=== PATIENT | female | born 1975 | race Caucasian/White ===

== ENCOUNTER 2019-11-16 15:10 | Outpatient (REF) | payer OTHER, SELFPAY ==
--- NOTE | 2019-11-16 | XR_ITS ---
EXAMINATION: XR LUMBOSACRAL SPINE WITH OBLIQUES CLINICAL INFORMATION: Low back pain. COMPARISON: 11/29/2016 lumbar spine radiographs. TECHNIQUE: AP, both oblique, and lateral views of the lumbar spine. Lateral view of the lumbosacral junction. FINDINGS: The vertebral bodies and posterior elements are normal. The disc spaces are preserved and the vertebral alignment is normal. The paraspinal soft tissues are normal. IMPRESSION: Unremarkable lumbar spine.
== END 2019-11-16 15:11 | disposition home or self-care (01) ==
LOC: HO.XRAY 15:10
PROVIDERS: PCP Internal Medicine; Visit Provider Internal Medicine
DX: M54.5 Low back pain (principal)
CPT/HCPCS: 72110

== ENCOUNTER 2020-05-23 16:47 | Emergency (ER) | payer OTHER, SELFPAY ==
--- NOTE | ~2020-05-23 | CT_ITS ---
EXAMINATION: CT ANGIOGRAM OF THE CHEST WITH AND WITHOUT CONTRAST (CT PULMONARY ANGIOGRAM FOR PE) CLINICAL INFORMATION: Reason for Exam sob, tachycardia, lateral chest pain on inspiration COMPARISON: None TECHNIQUE: Prior to contrast administration, noncontrast localization images were obtained. Subsequently, multidetector volumetric imaging was performed from the thoracic inlet to below the diaphragms following the administration of 80 mL Omnipaque 350 intravenous contrast. No contrast reaction reported Sagittal, coronal, and MIP oblique sagittal reformatted images were obtained on the CT workstation, uploaded to PACS, and reviewed. This CT examination was performed using dose optimization techniques as appropriate, variously including the following: *Automated exposure control *Adjustment of mA and/or kV according to patient size (this includes techniques or standardized protocols for targeted exams where dose is matched to indication/reason for exam; i.e. extremities or head) *Use of iterative reconstruction technique Total exam dose-length product 271 mGy-cm FINDINGS: QUALITY OF STUDY/CONTRAST BOLUS: Satisfactory. PULMONARY ARTERIES: No central or segmental pulmonary emboli. THORACIC AORTA: No aneurysm or dissection. LUNG: The lungs are well-expanded with patchy opacity right upper lobe anterior segment question developing infiltrate. Rest of lungs are clear is a 2 mm nodule right upper lobe axial image 17/6, 3 mm nodule left upper lobe adjacent to the major fissure axial image 15/6, 4 mm nodule in the lingula axial image 31/6, 2 mm subpleural nodule right middle lobe axial image 33/6, 4 mm nodule left lower lobe axial image 34/6, 3 mm nodule in the lingula axial image 35/6, 2 mm subpleural-based nodules left lower lobe axial image 36/6. No large mass or acute consolidation seen. PLEURA: No pleural effusion or pneumothorax. MEDIASTINUM: Normal heart size. No pericardial effusion. No hilar or mediastinal lymphadenopathy. No evidence of septal bowing or right heart strain. CHEST WALL/AXILLA: No axillary or internal mammary lymphadenopathy. OSSEOUS STRUCTURES: No acute or suspicious osseous abnormality. UPPER ABDOMEN: Visualized liver, spleen, pancreas and bilateral adrenal glands are unremarkable. No reflux of contrast into the hepatic veins to suggest elevated right heart pressures. CT/CT angio chest PE protocol IMPRESSION: No evidence of PE. No evidence of aortic aneurysm or dissection. Multiple small 2-4 mm range pulmonary nodules seen bilaterally, question inflammatory or infectious etiology. No acute consolidation seen. There is a small patchy opacity right upper lobe, question developing infiltrate. Consider follow up chest x-ray in 7-10 days. VTE: negative
[2020-05-23 17:11] VITALS: BP 123/67; PULSE 93; RESP 22; TEMP 37.2; O2SAT 100; BMI 25.8
--- NOTE | 2020-05-23 17:28 | ECG_ITS ---
Test Reason : SOB Blood Pressure : / mmHG Vent. Rate : 091 BPM Atrial Rate : 091 BPM P-R Int : 122 ms QRS Dur : 070 ms QT Int : 344 ms P-R-T Axes : 027 -01 024 degrees QTc Int : 423 ms Normal sinus rhythm Normal ECG No previous ECGs available Referred By: Nevin Vieira Electronically Signed By:LESLEE MARIN
--- NOTE | 2020-05-23 17:30 | ED.SOB ---
HPI - SOB/Dyspnea General Chief Complaint: Dyspnea Stated Complaint: sob chills Time Seen by Provider: 05/23/20 17:21 Source: patient Mode of arrival: ambulatory Limitations: no limitations History of Present Illness HPI Narrative: 44-year-old female with no significant past medical history presents with 2 weeks of upper respiratory symptoms, however over the past several days she has developed increasing shortness of breath, fevers, chills, and was referred to the emergency department by [facility]. She describes lateral chest pain on inspiration, shortness of breath, shortness breath on exertion, fevers, chills, cough, and weakness. MD elicited complaint: shortness of breath Onset (ago): week(s) (2) Context: recent illness Timing: constant Severity: moderate Exacerbating factors: exertion, coughing and deep breaths Relieving factors: nothing Associated symptoms: chest pain, pain with inspiration, fever, cough, wheezing and chest congestion Treatment prior to arrival: none Related Data Previous Rx's Medication Instructions Recorded albuterol sulfate 2 puff INHALATION Q4-6H PRN #8.5 g 05/23/20 azithromycin See Rx Instructions .ROUTE 05/23/20 .COMPLEX #6 tab benzonatate [Tessalon Perles] 100 mg PO TID PRN #60 cap 05/23/20 cefuroxime axetil 500 mg PO Q12H 7 Days #14 tab 05/23/20 dexamethasone 6 mg PO DAILY 5 Days #5 tab 05/23/20 Allergies Allergy/AdvReac Type Severity Reaction Status Date / Time No Known Allergies Allergy Unverified 10/29/19 17:08 [No Known Allergies*] Review of Systems Review of Systems: Constitutional: positive Fever, positive Chills, positive fatigue, positive Malaise ENT/Mouth: No sore throat, no runny nose Eyes: No Discharge Cardiovascular: Positive Chest Pain, positive SOB Respiratory: Positive Cough, No Sputum, positive Wheezing, No Smoke Exposure, positive Dyspnea Gastrointestinal: No Nausea, No Vomiting, No Diarrhea Genitourinary: no irregular bleeding, No Dysuria, No Urinary Frequency, No Hematuria, No Urinary Incontinence, No Urgency, No Flank Pain, Musculoskeletal: positive Myalgia Skin: No rash Neuro: Positive Headache Yes all other systems are reviewed and are negative PMFSH Past Medical History Attestation statement: The following information was validated with the patient. Source: old records reviewed Medical History (Updated 05/23/20 @ 21:36 by Nevin Vieira NP) Cholecystectomy planned No known health problems Social History Social History Advance Directives: No Advance Directives Information Provided: No Physical Exam Vital Signs: Vital Signs: Last Vital Signs Temp 98.4 F 05/23/20 22:37 Pulse 107 H 05/23/20 22:37 Resp 18 05/23/20 22:37 BP 123/65 05/23/20 22:37 Pulse Ox 98 05/23/20 22:37 Body Mass Index 25.8 Appearance: Alert. Oriented X3. Moderate distress. Eyes: Pupils equal, round and reactive to light. EOMI ENT: Pharynx normal. Dry mucous membranes Neck: Normal inspection. Neck supple. Trachea midline CVS: Tachycardic heart rate and rhythm. Apical pulse equal to extremities Respiratory: Tachypneic, mild respiratory distress. Lung sounds extra mario wheezing Abdomen: Soft and nontender. Skin: Skin warm and dry. Normal skin color. Normal skin turgor. Extremities: No lower extremity edema. Moves all extremities against resistance, get well balanced with coordinated Neuro: No motor deficit. No sensory deficit. Cranial nerves 2-12 intact Course Course Course Narrative: 44-year-old female presents with upper respiratory symptoms for approximately 2 weeks, over the past couple a days shortness breath has increased, now has pain on inspiration to the lateral chest [place], was referred to the emergency department by [facility]. Upon my examination, patient's respiratory rate is 35, expiratory wheezing noted throughout all lobes, patient is maintaining O2 sats 100% on room air however based on her presentation we will order updraft, steroids, and antibiotics. 5:30 p.m., patient's respiration rate is in the 30s, has pain on inspiration, will order PE study 8:00 p.m. PE study negative for embolus, does show findings consistent with COVID pneumonia. COVID test pending. RN updated. 9:10 p.m. COVID results are positive. Will discharge patient home with supportive measures. Patient verbalized understanding of and agrees to plan of care discharge home. MDM - SOB/Dyspnea Differential Diagnosis Differential diagnosis: Likely acute exacerbation of chronic obstructive airways disease, pneumonia, pulmonary embolism and anemia Medical Records Attestation: I reviewed the patient's medical records. Lab Data Attestation: I reviewed the patient's lab results. Result diagrams: 05/23/20 18:17 05/23/20 18:17 Labs: Lab Results 05/23/20 05/23/20 05/23/20 Range/Units 18:17 18:17 18:17 WBC 3.3 L (4.8-10.8) X10*3/uL RBC 4.79 (4.20-5.50) X10*6/uL Hgb 13.6 (12.0-16.0) g/dl Hct 40.4 (37-47) % MCV 84.3 (80-98) fL MCH 28.4 (27.0-33.0) pg MCHC 33.7 (31.0-35.0) g/dl RDW 12.3 (11.0-16.0) % Plt Count 275 (160-400) X10*3/uL MPV 9.2 L (9.4-12.3) fL Immature Gran % (Auto) 0.3 (0.0-0.4) % Neut % (Auto) 50.3 (45-73) % Lymph % (Auto) 35.8 (20-40) % [place] % (Auto) 13.3 H (2-11) % Eos % (Auto) 0.3 (0-4) % Baso % (Auto) 0.0 (0-2) % Lymph # (Auto) 1.2 (1.2-4.9) X10*3/uL [place] # (Auto) 0.4 (0.1-1.2) X10*3/uL Eos # (Auto) 0.0 (0.0-0.4) X10*3/uL Baso # (Auto) 0.0 (0.0-0.2) X10*3/uL Abs Immat Gran (auto) 0.01 (0.00-0.03) X10*3/uL Absolute Neuts (auto) 1.7 L (2.0-8.3) X10*3/uL Absolute Nucleated RBC 0.000 (0.0-0.012) X10*3/uL Nucleated RBC % (auto) 0.0 (0.0-0.2) /100WBC PT 11.8 (10.8-13.0) SEC INR 1.0 (0.9-1.1) APTT 31.7 (24.1-38.0) SEC Sodium 137 (135-145) mmol/L Potassium 3.5 (3.3-5.1) mmol/L Chloride 103 (96-108) mmol/L Carbon Dioxide 23 (22-29) mmol/L Anion Gap 15 (12-20) BUN 9 (9-16) mg/dL Creatinine 0.89 (0.5-1.4) mg/dL Estim Creat Clear Calc 81.3 Estimated GFR > 60 Random Glucose 94 (60-115) mg/dL Calcium 9.2 (8.4-10.2) mg/dL Magnesium 2.1 (1.6-2.6) mg/dL Ferritin (10-250) ng/mL Total Bilirubin 0.5 (0.0-1.0) mg/dL Direct Bilirubin 0.2 (0.0-0.5) mg/dL AST 35 H (5-31) U/L ALT 35 H (0-31) U/L Alkaline Phosphatase 71 (39-117) U/L Lactate Dehydrogenase (122-220) U/L Total Creatine Kinase (26-140) U/L Troponin I High Sens (<3.5-17.0) ng/L Total Protein 7.9 (6.5-8.0) g/dL Albumin 4.4 (3.5-5.0) g/dL Lipase 11 (8-78) U/L Procalcitonin ng/mL Coronavirus (PCR) (Negative) Influenza Type A (PCR) (Negative) Influenza Type B (PCR) (Negative) RSV RNA Qual (PCR) (Negative) 05/23/20 05/23/20 05/23/20 Range/Units 18:17 18:17 18:17 WBC (4.8-10.8) X10*3/uL RBC (4.20-5.50) X10*6/uL Hgb (12.0-16.0) g/dl Hct (37-47) % MCV (80-98) fL MCH (27.0-33.0) pg MCHC (31.0-35.0) g/dl RDW (11.0-16.0) % Plt Count (160-400) X10*3/uL MPV (9.4-12.3) fL Immature Gran % (Auto) (0.0-0.4) % Neut % (Auto) (45-73) % Lymph % (Auto) (20-40) % [place] % (Auto) (2-11) % Eos % (Auto) (0-4) % Baso % (Auto) (0-2) % Lymph # (Auto) (1.2-4.9) X10*3/uL [place] # (Auto) (0.1-1.2) X10*3/uL Eos # (Auto) (0.0-0.4) X10*3/uL Baso # (Auto) (0.0-0.2) X10*3/uL Abs Immat Gran (auto) (0.00-0.03) X10*3/uL Absolute Neuts (auto) (2.0-8.3) X10*3/uL Absolute Nucleated RBC (0.0-0.012) X10*3/uL Nucleated RBC % (auto) (0.0-0.2) /100WBC PT (10.8-13.0) SEC INR (0.9-1.1) APTT (24.1-38.0) SEC Sodium (135-145) mmol/L Potassium (3.3-5.1) mmol/L Chloride (96-108) mmol/L Carbon Dioxide (22-29) mmol/L Anion Gap (12-20) BUN (9-16) mg/dL Creatinine (0.5-1.4) mg/dL Estim Creat Clear Calc Estimated GFR Random Glucose (60-115) mg/dL Calcium (8.4-10.2) mg/dL Magnesium (1.6-2.6) mg/dL Ferritin 34 (10-250) ng/mL Total Bilirubin (0.0-1.0) mg/dL Direct Bilirubin (0.0-0.5) mg/dL AST (5-31) U/L ALT (0-31) U/L Alkaline Phosphatase (39-117) U/L Lactate Dehydrogenase 136 (122-220) U/L Total Creatine Kinase 35 (26-140) U/L Troponin I High Sens < 3.5 (<3.5-17.0) ng/L Total Protein (6.5-8.0) g/dL Albumin (3.5-5.0) g/dL Lipase (8-78) U/L Procalcitonin 0.05 ng/mL Coronavirus (PCR) (Negative) Influenza Type A (PCR) (Negative) Influenza Type B (PCR) (Negative) RSV RNA Qual (PCR) (Negative) 05/23/20 Range/Units 20:10 WBC (4.8-10.8) X10*3/uL RBC (4.20-5.50) X10*6/uL Hgb (12.0-16.0) g/dl Hct (37-47) % MCV (80-98) fL MCH (27.0-33.0) pg MCHC (31.0-35.0) g/dl RDW (11.0-16.0) % Plt Count (160-400) X10*3/uL MPV (9.4-12.3) fL Immature Gran % (Auto) (0.0-0.4) % Neut % (Auto) (45-73) % Lymph % (Auto) (20-40) % [place] % (Auto) (2-11) % Eos % (Auto) (0-4) % Baso % (Auto) (0-2) % Lymph # (Auto) (1.2-4.9) X10*3/uL [place] # (Auto) (0.1-1.2) X10*3/uL Eos # (Auto) (0.0-0.4) X10*3/uL Baso # (Auto) (0.0-0.2) X10*3/uL Abs Immat Gran (auto) (0.00-0.03) X10*3/uL Absolute Neuts (auto) (2.0-8.3) X10*3/uL Absolute Nucleated RBC (0.0-0.012) X10*3/uL Nucleated RBC % (auto) (0.0-0.2) /100WBC PT (10.8-13.0) SEC INR (0.9-1.1) APTT (24.1-38.0) SEC Sodium (135-145) mmol/L Potassium (3.3-5.1) mmol/L Chloride (96-108) mmol/L Carbon Dioxide (22-29) mmol/L Anion Gap (12-20) BUN (9-16) mg/dL Creatinine (0.5-1.4) mg/dL Estim Creat Clear Calc Estimated GFR Random Glucose (60-115) mg/dL Calcium (8.4-10.2) mg/dL Magnesium (1.6-2.6) mg/dL Ferritin (10-250) ng/mL Total Bilirubin (0.0-1.0) mg/dL Direct Bilirubin (0.0-0.5) mg/dL AST (5-31) U/L ALT (0-31) U/L Alkaline Phosphatase (39-117) U/L Lactate Dehydrogenase (122-220) U/L Total Creatine Kinase (26-140) U/L Troponin I High Sens (<3.5-17.0) ng/L Total Protein (6.5-8.0) g/dL Albumin (3.5-5.0) g/dL Lipase (8-78) U/L Procalcitonin ng/mL Coronavirus (PCR) POSITIVE A (Negative) Influenza Type A (PCR) NEGATIVE (Negative) Influenza Type B (PCR) NEGATIVE (Negative) RSV RNA Qual (PCR) NEGATIVE (Negative) Imaging Data CT PE study: Attestation: I personally reviewed and interpreted this imaging study as follows: Radiologist's impression: EXAMINATION: CT ANGIOGRAM OF THE CHEST WITH AND WITHOUT CONTRAST (CT PULMONARY ANGIOGRAM FOR PE) CLINICAL INFORMATION: Reason for Exam sob, tachycardia, lateral chest pain on inspiration COMPARISON: None TECHNIQUE: Prior to contrast administration, noncontrast localization images were obtained. Subsequently, multidetector volumetric imaging was performed from the thoracic inlet to below the diaphragms following the administration of 80 mL Omnipaque 350 intravenous contrast. No contrast reaction reported Sagittal, coronal, and MIP oblique sagittal reformatted images were obtained on the CT workstation, uploaded to PACS, and reviewed. This CT examination was performed using dose optimization techniques as appropriate, variously including the following: *Automated exposure control *Adjustment of mA and/or kV according to patient size (this includes techniques or standardized protocols for targeted exams where dose is matched to indication/reason for exam; i.e. extremities or head) *Use of iterative reconstruction technique Total exam dose-length product 271 mGy-cm FINDINGS: QUALITY OF STUDY/CONTRAST BOLUS: Satisfactory. PULMONARY ARTERIES: No central or segmental pulmonary emboli. THORACIC AORTA: No aneurysm or dissection. LUNG: The lungs are well-expanded with patchy opacity right upper lobe anterior segment question developing infiltrate. Rest of lungs are clear is a 2 mm nodule right upper lobe axial image 17/6, 3 mm nodule left upper lobe adjacent to the major fissure axial image 15/6, 4 mm nodule in the lingula axial image 31/6, 2 mm subpleural nodule right middle lobe axial image 33/6, 4 mm nodule left lower lobe axial image 34/6, 3 mm nodule in the lingula axial image 35/6, 2 mm subpleural-based nodules left lower lobe axial image 36/6. No large mass or acute consolidation seen. PLEURA: No pleural effusion or pneumothorax. MEDIASTINUM: Normal heart size. No pericardial effusion. No hilar or mediastinal lymphadenopathy. No evidence of septal bowing or right heart strain. CHEST WALL/AXILLA: No axillary or internal mammary lymphadenopathy. OSSEOUS STRUCTURES: No acute or suspicious osseous abnormality. UPPER ABDOMEN: Visualized liver, spleen, pancreas and bilateral adrenal glands are unremarkable. No reflux of contrast into the hepatic veins to suggest elevated right heart pressures. CT/CT angio chest PE protocol IMPRESSION: No evidence of PE. No evidence of aortic aneurysm or dissection. Multiple small 2-4 mm range pulmonary nodules seen bilaterally, question inflammatory or infectious etiology. No acute consolidation seen. There is a small patchy opacity right upper lobe, question developing infiltrate. Consider follow up chest x-ray in 7-10 days. VTE: negative ECG Data Attestation: I personally reviewed and interpreted this ECG as follows: ECG interpretation date: 05/23/20 ECG interpretation time: 18:27 Interpretation: Vent. rate 91 BPM NE interval 122 ms QRS duration 70 ms QT/QTc 344/423 ms P-R-T axes 27 -1 24 Normal sinus rhythm Normal ECG No previous ECGs available Scores [place] PE Clinical symptoms of DVT: 3 Heart rate > 100 p/min: 1.5 Score: 4.5 2-tier Risk: likely risk (17-53%) Discharge Plan Discharge Clinical Impression: COVID-19 Patient Disposition: Home, Self-Care Instructions: COVID-19 (Coronavirus Disease 2019) (ED) Additional Instructions: You were evaluated for symptoms consistent with COVID-19 Please maintain social isolation per State and Federal guidelines. Is your responsibility to maintain these guidelines. You are positive for COVID-19. Thank you for choosing this emergency department for evaluation. Please follow-up with primary care physician as needed. Return to the emergency department for any new, concerning, or worsening symptoms. Prescriptions: New azithromycin 500 mg tablet See Rx Instructions .ROUTE .COMPLEX Qty: 6 RF: 0 cefuroxime axetil 500 mg tablet 500 mg PO Q12H 7 Days Qty: 14 RF: 0 dexamethasone 6 mg tablet 6 mg PO DAILY 5 Days Qty: 5 RF: 0 albuterol sulfate 90 mcg/actuation HFA aerosol inhaler 2 puff inhalation Q4-6H PRN (Reason: shortness of breath or wheezing) Qty: 8.5 RF: 0 benzonatate [Tessalon Perles] 100 mg capsule 100 mg PO TID PRN (Reason: cough) Qty: 60 RF: 0 Stand Alone Forms: Work/School Release Interventions: ED Discharge Assessment Last Done: 05/23/20 22:39 Discharge Date/Time: 05/23/20 22:40
[2020-05-23 18:22] LABS: MANUAL DIFF FLAG NO
[2020-05-23 18:23] LABS: Eosinophils Percent Auto 0.3 % (0-4); Hematocrit 40.4 % (37-47); Hemoglobin 13.6 g/dl (12.0-16.0); Imm Gran Abs Auto 0.01 X10*3/uL (0.00-0.03); Imm Gran Pct Auto 0.3 % (0.0-0.4); Lymphocytes Absolute Auto 1.2 X10*3/uL (1.2-4.9); Lymphocytes Percent Auto 35.8 % (20-40); Mean Corpuscular HGB Conc 33.7 g/dl (31.0-35.0); Mean Corpuscular Hemoglobin 28.4 pg (27.0-33.0); Mean Corpuscular Volume 84.3 fL (80-98); Mean Platelet Volume 9.2 fL (9.4-12.3); Monocytes Absolute Auto 0.4 X10*3/uL (0.1-1.2); Monocytes Percent Auto 13.3 % (2-11); Neutrophils Absolute Auto 1.7 X10*3/uL (2.0-8.3); Neutrophils Percent Auto 50.3 % (45-73); Platelet Count 275 X10*3/uL (160-400); Red Blood Count 4.79 X10*6/uL (4.20-5.50); Red Cell Distribution Width 12.3 % (11.0-16.0); White Blood Count 3.3 X10*3/uL (4.8-10.8)
[2020-05-23 18:33] LABS: Prothrombin Time 11.8 SEC (10.8-13.0)
[2020-05-23 18:36] LABS: Partial Thromboplastin Time 31.7 SEC (24.1-38.0)
[2020-05-23] MEDS: Albuterol Sulfate 90 MCG 8 GM INHALER 2 PUFF INHALE (18:43)
[2020-05-23] MEDS: dexAMETHasone sod phosphate 4 MG/ML VIAL 6 MG IVPUSH (18:43)
[2020-05-23 18:49] LABS: Alanine Aminotransferase 35 U/L (0-31); Albumin Level 4.4 g/dL (3.5-5.0); Alkaline Phosphatase 71 U/L (39-117); Anion Gap 15 (12-20); Aspartate Amino Transferase 35 U/L (5-31); Bilirubin Direct 0.2 mg/dL (0.0-0.5); Bilirubin Total 0.5 mg/dL (0.0-1.0); Blood Urea Nitrogen 9 mg/dL (9-16); Calcium 9.2 mg/dL (8.4-10.2); Carbon Dioxide 23 mmol/L (22-29); Chloride 103 mmol/L (96-108); Creatinine Clr Calc Pharmacy 81.3; Estimated Glomerular Filt Rate > 60; Glucose Random 94 mg/dL (60-115); Lipase 11 U/L (8-78); Magnesium 2.1 mg/dL (1.6-2.6); Potassium 3.5 mmol/L (3.3-5.1); Sodium 137 mmol/L (135-145); Total Protein 7.9 g/dL (6.5-8.0)
[2020-05-23 18:54] LABS: Troponin-I High Sensitivity < 3.5 ng/L (<3.5-17.0)
--- NOTE | 2020-05-23 18:59 | PC.NURSE ---
pt taken to ct at this time.
[2020-05-23 19:07] LABS: Procalcitonin 0.05 ng/mL
[2020-05-23 19:08] LABS: Ferritin 34 ng/mL (10-250)
[2020-05-23 19:12] LABS: Lactate Dehydrogenase 136 U/L (122-220)
[2020-05-23] MEDS: iohexoL 350 MG/ML 100 ML INFUS..BTL IV (19:35)
[2020-05-23 20:00] VITALS: BP 131/63; PULSE 105; RESP 20; TEMP 37.8; O2SAT 100
[2020-05-23 20:58] LABS: Influenza A PCR NEGATIVE (Negative); Influenza B PCR NEGATIVE (Negative); Resp Syncy Virus RNA Qual PCR NEGATIVE (Negative); SARS COV2 PCR INHOUSE POSITIVE (Negative)
[2020-05-23] MEDS: Azithromycin 500 MG TABLET PO (21:00)
[2020-05-23] MEDS: Benzonatate 100 MG CAPSULE 200 MG PO (21:00)
[2020-05-23 22:37] VITALS: BP 123/65; PULSE 107; RESP 18; TEMP 36.9; O2SAT 98
== END 2020-05-23 22:40 | disposition home or self-care (01) ==
PROVIDERS: Nurse Practitioner Family; Emergency Provider Emergency Medicine; PCP Internal Medicine
DX: U07.1 COVID-19 (principal); R50.9 Fever, unspecified
CPT/HCPCS: 0241U; 36415; 71275; 80048; 80076; 82550; 82728; 83615; 83690; 83735; 84145; 84484; 85025; 85610; 85730; 93005; 96374; 99284; J1100; Q9967

== ENCOUNTER 2020-05-28 13:02 | Emergency (ER) | payer OTHER, SELFPAY ==
--- NOTE | ~2020-05-28 | XR_ITS ---
EXAMINATION: XR CHEST CLINICAL INFORMATION: cough COVID positive COMPARISON: 11/10/[address] from 05/23/2020 TECHNIQUE: Frontal view of the chest was obtained. FINDINGS: Lung volumes are low. Patchy hazy airspace opacities are present within the right midlung and lung bases. No dense airspace consolidation. These findings are more pronounced as compared to the prior CT. Cardiac meniscal contours are within normal limits for technique. No pleural effusion or pneumothorax. No acute osseous findings. XR/XR chest 1V IMPRESSION: Low lung volumes with bibasilar atelectasis. Patchy hazy airspace opacities in the right midlung and bases may correspond to additional atelectasis are changes of viral pneumonia and are more pronounced as compared to the recent CT.
--- NOTE | ~2020-05-28 | CT_ITS ---
EXAMINATION: CT ANGIOGRAM OF THE CHEST WITH AND WITHOUT CONTRAST (CT PULMONARY ANGIOGRAM FOR PE) CLINICAL INFORMATION: Severe chest pain, COVID, d-dimer positive COMPARISON: 05/23/2020 TECHNIQUE: Prior to contrast administration, noncontrast localization images were obtained. Subsequently, multidetector volumetric imaging was performed from the thoracic inlet to below the diaphragms following the administration of 69 mL Omnipaque 350 intravenous contrast. No contrast reaction reported Sagittal, coronal, and MIP oblique sagittal reformatted images were obtained on the CT workstation, uploaded to PACS, and reviewed. This CT examination was performed using dose optimization techniques as appropriate, variously including the following: *Automated exposure control *Adjustment of mA and/or kV according to patient size (this includes techniques or standardized protocols for targeted exams where dose is matched to indication/reason for exam; i.e. extremities or head) *Use of iterative reconstruction technique Total exam dose-length product 309 mGy-cm FINDINGS: QUALITY OF STUDY/CONTRAST BOLUS: Satisfactory. PULMONARY ARTERIES: No central or segmental pulmonary emboli. THORACIC AORTA: No aneurysm or dissection. LUNG: New/increased from the prior study are multiple areas of irregular peripheral prominent patchy groundglass opacity, a typical appearance for COVID pneumonitis. No dense focal consolidation or mass. PLEURA: No pleural effusion or pneumothorax. MEDIASTINUM: Normal heart size. No pericardial effusion. No hilar or mediastinal lymphadenopathy. No evidence of septal bowing or right heart strain. CHEST WALL/AXILLA: No axillary or internal mammary lymphadenopathy. OSSEOUS STRUCTURES: No acute or suspicious osseous abnormality. UPPER ABDOMEN: Unremarkable. No reflux of contrast into the hepatic veins to suggest elevated right heart pressures. CT/CT angio chest PE protocol IMPRESSION: No pulmonary embolus seen. New/increased patchy areas of groundglass opacity within the lungs bilaterally, a typical appearance for COVID pneumonitis. VTE: negative
[2020-05-28 13:35] VITALS: BP 106/69; PULSE 102; RESP 18; TEMP 36.9; O2SAT 97; BMI 32.4
--- NOTE | 2020-05-28 13:49 | ED_ITS ---
HPI - SOB/Dyspnea General Chief Complaint: Dyspnea Stated Complaint: COUGHING Time Seen by Provider: 05/28/20 13:06 Source: patient and old records reviewed Mode of arrival: ambulatory Limitations: no limitations History of Present Illness HPI Narrative: 44 yo female otherwise healthy nonsmoker 05/23 dx with COVID and had CTA:PE which was negative and actually only showed isolated RUL infiltrate she was sent home not hypoxic on azithromycin/ceftin/dexamethasone 3 days ago developed n/v and very sharp bilateral lower rib pain across chest MD elicited complaint: shortness of breath, pain with inspiration and chest pain Pertinent past history: other (COVID dx 05/23) Onset (ago): day(s) (3) Context: recent illness Timing: constant Severity: moderate Exacerbating factors: movement, coughing and inspiration Relieving factors: nothing Known history of: other (COVID with consoliation on CT chest) Associated symptoms: chest pain, pain with inspiration, cough and nausea/vomiting Treatment prior to arrival: other (azithromycin, ceftin, dexamethasone) Related Data Previous Rx's Medication Instructions Recorded albuterol sulfate 2 puff INHALATION Q4-6H PRN #8.5 g 05/23/20 azithromycin See Rx Instructions .ROUTE 05/23/20 .COMPLEX #6 tab benzonatate [Tessalon Perles] 100 mg PO TID PRN #60 cap 05/23/20 cefuroxime axetil 500 mg PO Q12H 7 Days #14 tab 05/23/20 dexamethasone 6 mg PO DAILY 5 Days #5 tab 05/23/20 hydrocodone-homatropine 5 ml PO Q6H PRN #60 ml 05/28/20 ondansetron 4 mg PO Q8H PRN #20 tab 05/28/20 Allergies Allergy/AdvReac Type Severity Reaction Status Date / Time No Known Allergies Allergy Unverified 10/29/19 17:08 [No Known Allergies*] Review of Systems Review of Systems: Constitutional : No Weight loss, No Fever, No Chills ENT/Mouth : No sore throat, No Rhinorrhea Eyes: No Eye Pain, No Swelling Cardiovascular : pos Chest Pain, pos SOB, no Dyspnea on Exertion, No Orthopnea, No Edema, No Palpitations Respiratory : pos Cough, No Sputum Gastrointestinal : pos Nausea, pos Vomiting, No Diarrhea, No abdominal Pain, No Hematochezia, No Melena Genitourinary : No Dysuria, No Urinary Frequency Musculoskeletal : No joint pain, No Myalgias, No Joint Swelling Skin : No Skin Lesions, No rash Neuro : No Weakness, No Numbness, No Dizziness, No Headache Psych : No Anxiety/Panic, No Depression Heme/Lymph: No Bruising, No Lymphadenopathy Endocrine : No Polyuria, No Polydipsia All other systems reviewed and are negative [facility] Past Medical History Attestation statement: The following information was validated with the patient. Medical History Cholecystectomy planned No known health problems Social History Social History Alcohol intake: never Smoked in Last 30 Days: No Use of substances other than those prescribed or required for medical reasons: No Advance Directives: No Advance Directives Information Provided: Yes Physical Exam Vital Signs: Vital Signs: Last Vital Signs Temp 98.4 F 05/28/20 13:35 Pulse 102 H 05/28/20 13:35 Resp 18 05/28/20 14:27 BP 106/69 05/28/20 13:35 Pulse Ox 97 05/28/20 13:35 Body Mass Index 32.4 Appearance: Alert. Oriented X3. Anxious, in pain, mild acute distress Eyes: Pupils equal, round and reactive to light. ENT: Pharynx normal. Neck: Normal inspection. Neck supple. CVS: tachycardic heart rate and rhythm. Pulses normal. Chest: ttp along bilateral lower ribs Respiratory: No respiratory distress. Breath sounds decreased, splinting noted Abdomen: Soft and nontender. Skin: Skin warm and dry. Normal skin color. Normal skin turgor. Extremities: No lower extremity edema. No calf ttp Neuro: Oriented X 3. No motor deficit. No sensory deficit. Course Course Course Narrative: given degree of pain and ddimer despite recent CTA will repeat as she is splinting and stating her pain is severe COVID markers likely LDH, ddimer, ferritin not terribly elevated, patient is 97% on RA negative for PE, lab markers stable - will ambulate patient for hypoxia, able to keep K+ down 94% on ambulation trial, passed PO challenge MDM - SOB/Dyspnea MDM Narrative Medical decision making narrative: 44 yo female with recent COVID dx with RUL infiltrate comes in with worsening symptoms of chest pain, now n/v, just had negative CTA for PE, states she was able to take her antibiotics and steroids at this time will need labs, EKG, troponin, ddimer, CXR for worsening disease, IV morphine for pain, possible repeat imaging given her degree of pain and complaints of dyspnea for possible VTE. Lab Data Result diagrams: 05/28/20 14:12 05/28/20 14:12 Labs: Lab Results 05/28/20 05/28/20 05/28/20 Range/Units 14:12 14:12 14:12 WBC 4.7 L (4.8-10.8) X10*3/uL RBC 4.52 (4.20-5.50) X10*6/uL Hgb 12.7 (12.0-16.0) g/dl Hct 37.7 (37-47) % MCV 83.4 (80-98) fL MCH 28.1 (27.0-33.0) pg MCHC 33.7 (31.0-35.0) g/dl RDW 11.9 (11.0-16.0) % Plt Count 254 (160-400) X10*3/uL MPV 9.1 L (9.4-12.3) fL Immature Gran % (Auto) 0.4 (0.0-0.4) % Neut % (Auto) 73.8 H (45-73) % Lymph % (Auto) 18.4 L (20-40) % [place] % (Auto) 7.2 (2-11) % Eos % (Auto) 0.0 (0-4) % Baso % (Auto) 0.2 (0-2) % Lymph # (Auto) 0.9 L (1.2-4.9) X10*3/uL [place] # (Auto) 0.3 (0.1-1.2) X10*3/uL Eos # (Auto) 0.0 (0.0-0.4) X10*3/uL Baso # (Auto) 0.0 (0.0-0.2) X10*3/uL Abs Immat Gran (auto) 0.02 (0.00-0.03) X10*3/uL Absolute Neuts (auto) 3.5 (2.0-8.3) X10*3/uL Absolute Nucleated RBC 0.000 (0.0-0.012) X10*3/uL Nucleated RBC % (auto) 0.0 (0.0-0.2) /100WBC D-Dimer 367 NG/ML Sodium 135 (135-145) mmol/L Potassium 3.2 L (3.3-5.1) mmol/L Chloride 100 (96-108) mmol/L Carbon Dioxide 26 (22-29) mmol/L Anion Gap 12 (12-20) BUN 9 (9-16) mg/dL Creatinine 0.80 (0.5-1.4) mg/dL Estim Creat Clear Calc 94.0 Estimated GFR > 60 Random Glucose 90 (60-115) mg/dL Lactic Acid (0.5-2.0) mmol/L Calcium 8.1 L D (8.4-10.2) mg/dL Magnesium (1.6-2.6) mg/dL Ferritin (10-250) ng/mL Total Bilirubin (0.0-1.0) mg/dL Direct Bilirubin (0.0-0.5) mg/dL AST (5-31) U/L ALT (0-31) U/L Alkaline Phosphatase (39-117) U/L Lactate Dehydrogenase (122-220) U/L Troponin I High Sens (<3.5-17.0) ng/L Total Protein (6.5-8.0) g/dL Albumin (3.5-5.0) g/dL Lipase (8-78) U/L 05/28/20 05/28/20 05/28/20 Range/Units 14:12 14:12 14:12 WBC (4.8-10.8) X10*3/uL RBC (4.20-5.50) X10*6/uL Hgb (12.0-16.0) g/dl Hct (37-47) % MCV (80-98) fL MCH (27.0-33.0) pg MCHC (31.0-35.0) g/dl RDW (11.0-16.0) % Plt Count (160-400) X10*3/uL MPV (9.4-12.3) fL Immature Gran % (Auto) (0.0-0.4) % Neut % (Auto) (45-73) % Lymph % (Auto) (20-40) % [place] % (Auto) (2-11) % Eos % (Auto) (0-4) % Baso % (Auto) (0-2) % Lymph # (Auto) (1.2-4.9) X10*3/uL [place] # (Auto) (0.1-1.2) X10*3/uL Eos # (Auto) (0.0-0.4) X10*3/uL Baso # (Auto) (0.0-0.2) X10*3/uL Abs Immat Gran (auto) (0.00-0.03) X10*3/uL Absolute Neuts (auto) (2.0-8.3) X10*3/uL Absolute Nucleated RBC (0.0-0.012) X10*3/uL Nucleated RBC % (auto) (0.0-0.2) /100WBC D-Dimer NG/ML Sodium (135-145) mmol/L Potassium (3.3-5.1) mmol/L Chloride (96-108) mmol/L Carbon Dioxide (22-29) mmol/L Anion Gap (12-20) BUN (9-16) mg/dL Creatinine (0.5-1.4) mg/dL Estim Creat Clear Calc Estimated GFR Random Glucose (60-115) mg/dL Lactic Acid 1.1 (0.5-2.0) mmol/L Calcium (8.4-10.2) mg/dL Magnesium 2.1 (1.6-2.6) mg/dL Ferritin 74 (10-250) ng/mL Total Bilirubin 0.7 (0.0-1.0) mg/dL Direct Bilirubin 0.3 (0.0-0.5) mg/dL AST 52 H (5-31) U/L ALT 94 H (0-31) U/L Alkaline Phosphatase 87 D (39-117) U/L Lactate Dehydrogenase 157 (122-220) U/L Troponin I High Sens < 3.5 (<3.5-17.0) ng/L Total Protein 6.5 (6.5-8.0) g/dL Albumin 3.6 (3.5-5.0) g/dL Lipase 10 (8-78) U/L ECG Data Attestation: I personally reviewed and interpreted this ECG as follows: ECG interpretation date: 05/28/20 ECG interpretation time: 16:04 Interpretation: Rate: 92 Rhythm: NSR [place]: left Normal P waves. Normal GIRISH. Normal QRS complex. ST T wave : nonspecific, no DANETTE qTC: normal prior studies: unchanged no acute ischemia The study has been interpreted contemporaneously by me. . Discharge Plan Discharge Clinical Impression: Pneumonia due to 2019-nCoV Vomiting Qualifiers: Vomiting type: unspecified Vomiting Intractability: non-intractable Nausea presence: with nausea Qualified Code(s): R11.2 - Nausea with vomiting, unspecified Patient Disposition: Home, Self-Care Instructions: Viral Pneumonia (ED), Acute Nausea and Vomiting (ED), COVID-19 (Coronavirus Disease 2019) (ED) Additional Instructions: return to ED for any worsening symptoms or concerns Prescriptions: New ondansetron 4 mg tablet,disintegrating 4 mg PO Q8H PRN (Reason: nausea and vomiting) Qty: 20 RF: 0 hydrocodone-homatropine 5-1.5 mg/5 mL (5 mL) syrup 5 ml PO Q6H PRN (Reason: cough) Qty: 60 RF: 0 No Action azithromycin 500 mg tablet See Rx Instructions .ROUTE .COMPLEX Qty: 6 RF: 0 cefuroxime axetil 500 mg tablet 500 mg PO Q12H 7 Days Qty: 14 RF: 0 dexamethasone 6 mg tablet 6 mg PO DAILY 5 Days Qty: 5 RF: 0 albuterol sulfate 90 mcg/actuation HFA aerosol inhaler 2 puff inhalation Q4-6H PRN (Reason: shortness of breath or wheezing) Qty: 8.5 RF: 0 benzonatate [Tessalon Perles] 100 mg capsule 100 mg PO TID PRN (Reason: cough) Qty: 60 RF: 0 Stand Alone Forms: Work/School Release
--- NOTE | 2020-05-28 13:50 | ECG_ITS ---
Test Reason : RIB PAIN Blood Pressure : / mmHG Vent. Rate : 092 BPM Atrial Rate : 092 BPM P-R Int : 120 ms QRS Dur : 084 ms QT Int : 272 ms P-R-T Axes : 037 -09 000 degrees QTc Int : 336 ms Normal sinus rhythm Possible Left atrial enlargement Nonspecific T wave abnormality Abnormal ECG When compared with ECG of 23-MAY-2020 18:27, Nonspecific T wave abnormality now evident in Lateral leads QT has shortened Referred By: Samaria De Leon Electronically Signed By:Tyrone Negrete
[2020-05-28 14:20] LABS: MANUAL DIFF FLAG NO
[2020-05-28 14:22] LABS: Basophils Percent Auto 0.2 % (0-2); Hematocrit 37.7 % (37-47); Hemoglobin 12.7 g/dl (12.0-16.0); Imm Gran Abs Auto 0.02 X10*3/uL (0.00-0.03); Imm Gran Pct Auto 0.4 % (0.0-0.4); Lymphocytes Absolute Auto 0.9 X10*3/uL (1.2-4.9); Lymphocytes Percent Auto 18.4 % (20-40); Mean Corpuscular HGB Conc 33.7 g/dl (31.0-35.0); Mean Corpuscular Hemoglobin 28.1 pg (27.0-33.0); Mean Corpuscular Volume 83.4 fL (80-98); Mean Platelet Volume 9.1 fL (9.4-12.3); Monocytes Absolute Auto 0.3 X10*3/uL (0.1-1.2); Monocytes Percent Auto 7.2 % (2-11); Neutrophils Absolute Auto 3.5 X10*3/uL (2.0-8.3); Neutrophils Percent Auto 73.8 % (45-73); Platelet Count 254 X10*3/uL (160-400); Red Blood Count 4.52 X10*6/uL (4.20-5.50); Red Cell Distribution Width 11.9 % (11.0-16.0); White Blood Count 4.7 X10*3/uL (4.8-10.8)
[2020-05-28 14:27] VITALS: RESP 18
[2020-05-28] MEDS: Ketorolac Tromethamine 30 MG/ML VIAL IVPUSH (14:27)
[2020-05-28] MEDS: ondansetron HCL 4 MG/2 ML VIAL IVPUSH (14:27)
[2020-05-28] MEDS: Morphine Sulfate 4 MG/ML CARTRIDGE IVPUSH (14:27)
[2020-05-28 14:31] LABS: D Dimer 367 NG/ML
[2020-05-28 14:49] LABS: Anion Gap 12 (12-20); Blood Urea Nitrogen 9 mg/dL (9-16); Calcium 8.1 mg/dL (8.4-10.2); Carbon Dioxide 26 mmol/L (22-29); Chloride 100 mmol/L (96-108); Estimated Glomerular Filt Rate > 60; Glucose Random 90 mg/dL (60-115); Potassium 3.2 mmol/L (3.3-5.1); Sodium 135 mmol/L (135-145)
[2020-05-28 14:50] LABS: Troponin-I High Sensitivity < 3.5 ng/L (<3.5-17.0)
[2020-05-28 14:52] LABS: Alanine Aminotransferase 94 U/L (0-31); Albumin Level 3.6 g/dL (3.5-5.0); Alkaline Phosphatase 87 U/L (39-117); Aspartate Amino Transferase 52 U/L (5-31); Bilirubin Direct 0.3 mg/dL (0.0-0.5); Bilirubin Total 0.7 mg/dL (0.0-1.0); Lactic Acid 1.1 mmol/L (0.5-2.0); Lipase 10 U/L (8-78); Magnesium 2.1 mg/dL (1.6-2.6); Total Protein 6.5 g/dL (6.5-8.0)
[2020-05-28 15:02] LABS: Lactate Dehydrogenase 157 U/L (122-220)
[2020-05-28 15:21] LABS: Ferritin 74 ng/mL (10-250)
[2020-05-28] MEDS: Potassium Chloride ER 20 MEQ TAB.ER.PRT PO (15:31)
[2020-05-28] MEDS: iohexoL 350 MG/ML 100 ML INFUS..BTL IV (15:45)
--- NOTE | 2020-05-28 16:20 | PC.NURSE ---
pt ambulted- o2 saturation started at 96% o2 sat down to 94% after ambulation md aware. pt to dc home
== END 2020-05-28 16:32 | disposition home or self-care (01) ==
PROVIDERS: Emergency Provider Emergency Medicine; PCP Internal Medicine
DX: U07.1 COVID-19 (principal); J12.82 Pneumonia due to coronavirus disease 2019; R11.2 Nausea with vomiting, unspecified
CPT/HCPCS: 36415; 71045; 71275; 80048; 80076; 82728; 83605; 83615; 83690; 83735; 84484; 85025; 85379; 87040; 93005; 96374; 96375; 99284; 99285; J1885; J2270; J2405; Q9967

== ENCOUNTER 2020-10-24 08:30 | Outpatient (REF) | payer MEDICAID, SELFPAY ==
[2020-10-24 10:47] LABS: Hematocrit 37.2 % (37-47); Hemoglobin 12.3 g/dl (12.0-16.0); Mean Corpuscular HGB Conc 33.1 g/dl (31.0-35.0); Mean Corpuscular Hemoglobin 27.7 pg (27.0-33.0); Mean Corpuscular Volume 83.8 fL (80-98); Mean Platelet Volume 9.2 fL (9.4-12.3); Platelet Count 297 X10*3/uL (160-400); Red Blood Count 4.44 X10*6/uL (4.20-5.50); Red Cell Distribution Width 12.3 % (11.0-16.0)
[2020-10-24 11:00] LABS: Alanine Aminotransferase 17 U/L (0-31); Alkaline Phosphatase 67 U/L (39-117); Aspartate Amino Transferase 20 U/L (5-31); Bilirubin Direct 0.2 mg/dL (0.0-0.5); Bilirubin Total 0.2 mg/dL (0.0-1.0); Total Protein 6.9 g/dL (6.5-8.0)
== END 2020-10-24 08:31 | disposition home or self-care (01) ==
LOC: HO.LAB 08:30
PROVIDERS: PCP Internal Medicine; Referring Provider Internal Medicine; Visit Provider Nurse Practitioner Family
DX: R19.7 Diarrhea, unspecified (principal); R74.8 Abnormal levels of other serum enzymes; Z79.899 Other long term (current) drug therapy
CPT/HCPCS: 36415; 80076; 85027; 99202

== ENCOUNTER → 2020-12-13 15:12 | Outpatient (BNVA) | payer MEDICAID, SELFPAY | PROVIDERS: PCP Internal Medicine; Referring Provider Internal Medicine; Visit Provider Nurse Practitioner Family | DX: K58.0 Irritable bowel syndrome with diarrhea (principal); R19.7 Diarrhea, unspecified; R10.9 Unspecified abdominal pain | CPT/HCPCS: 99212 ==

== ENCOUNTER → 2021-05-02 14:03 | Outpatient (BNVA) | payer MEDICAID, SELFPAY | PROVIDERS: Visit Provider Advanced Practice Midwife | DX: N95.1 Menopausal and female climacteric states (principal) | CPT/HCPCS: 99202 ==

== ENCOUNTER 2021-05-10 10:30 | Outpatient (REF) | payer MEDICAID, SELFPAY ==
[2021-05-10 11:04] LABS: MANUAL DIFF FLAG NO
[2021-05-10 11:14] LABS: Basophils Percent Auto 0.4 % (0-2); Eosinophils Absolute Auto 0.1 X10*3/uL (0.0-0.4); Eosinophils Percent Auto 1.1 % (0-4); Hematocrit 40.6 % (37.0-47.0); Hemoglobin 13.4 g/dl (12.0-16.0); Imm Gran Abs Auto 0.01 X10*3/uL (0.00-0.03); Imm Gran Pct Auto 0.2 % (0.0-0.4); Lymphocytes Absolute Auto 1.7 X10*3/uL (1.2-4.9); Lymphocytes Percent Auto 30.7 % (20-40); Mean Corpuscular Hemoglobin 27.9 pg (27.0-33.0); Mean Corpuscular Volume 84.4 fL (80.0-98.0); Mean Platelet Volume 9.3 fL (9.4-12.3); Monocytes Absolute Auto 0.3 X10*3/uL (0.1-1.2); Monocytes Percent Auto 5.1 % (2-11); Neutrophils Absolute Auto 3.6 x10*3/uL (2.0-8.3); Neutrophils Percent Auto 62.5 % (45-73); Platelet Count 406 X10*3/uL (160-400); Red Blood Count 4.81 X10*6/uL (4.20-5.50); White Blood Count 5.7 X10*3/uL (4.8-10.8)
[2021-05-10 12:31] LABS: TSH reflex Free T4 1.97 uIU/mL (0.32-4.0); Vitamin D 25-OH Total 15.8 ng/mL (>30)
[2021-05-10 12:32] LABS: Alanine Aminotransferase 21 U/L (0-31); Albumin Level 4.3 g/dL (3.5-5.0); Alkaline Phosphatase 63 U/L (39-117); Anion Gap 13 (12-20); Aspartate Amino Transferase 18 U/L (5-31); Bilirubin Direct 0.3 mg/dL (0.0-0.5); Bilirubin Total 0.9 mg/dL (0.0-1.0); Blood Urea Nitrogen 9 mg/dL (9-16); Calcium 9.7 mg/dL (8.4-10.2); Carbon Dioxide 24 mmol/L (22-29); Chloride 105 mmol/L (96-108); Cholesterol 251 mg/dL; Estimated Glomerular Filt Rate > 60; Glucose Random 101 mg/dL (60-115); HDL Cholesterol 75 mg/dL; LDL Cholesterol Calculated 152 mg/dl; Potassium 4.2 mmol/L (3.3-5.1); Sodium 138 mmol/L (135-145); Total Protein 7.8 g/dL (6.5-8.0); Triglycerides 124 mg/dL
[2021-05-10 12:56] LABS: Estimated Average Glucose 108 mg/dL; Hemoglobin A1c % 5.4 %
[2021-05-11 05:41] LABS: ~Hepatitis C Antibody Nonreactive (Nonreactive)
[2021-05-11 05:52] LABS: HBS Num1 1.03 mIU/mL (0-7.99); HBsAGNum1 0.42 S/CO (0.00-0.99); HIV AB/AG Nonreactive (Nonreactive); HIV Num 1 0.08 S/CO (0.00-0.99); Hepatitis B Surface Antigen Negative (Negative); ~Hepatitis B Surface Antibody NONREACTIVE (Nonreactive)
[2021-05-11 15:03] LABS: Anti Nuclear Antibody Screen NEGATIVE (NEGATIVE)
[2021-05-12 14:32] LABS: Hepatitis B Viral DNA Qn - cp <1.00 NOT DETECTED Log IU/mL (NOT DETECTED); Hepatitis B Viral DNA Qn-IU/mL <10 NOT DETECTED IU/mL (NOT DETECTED)
[2021-05-16 17:07] LABS: Pancreatic Elastase-1 >500 mcg/g
== END 2021-05-10 10:31 | disposition home or self-care (01) ==
LOC: HO.LAB 10:30
PROVIDERS: Nurse Practitioner Family; PCP Internal Medicine; Visit Provider Internal Medicine
DX: R19.7 Diarrhea, unspecified (principal); R52 Pain, unspecified; R53.83 Other fatigue
CPT/HCPCS: 36415; 80048; 80061; 80076; 82306; 82656; 83036; 84443; 85025; 86038; 86039; 86706; 86803; 87340; 87389; 87517

== ENCOUNTER 2021-05-12 06:30 | Outpatient (REF) | payer MEDICAID, SELFPAY ==
--- NOTE | ~2021-05-12 | CT_ITS ---
EXAMINATION: CT ABDOMEN AND PELVIS WITH CONTRAST CLINICAL INFORMATION: Abdominal pain COMPARISON: None TECHNIQUE: Multidetector volumetric images were obtained from the superior aspect of the liver through the pubic symphysis following administration 85 mL of Omnipaque 350 intravenous contrast. Sagittal and coronal reformatted images were obtained on the technologist's workstation. Oral contrast: Yes This CT examination was performed using dose optimization techniques as appropriate, variously including the following: *Automated exposure control *Adjustment of mA and/or kV according to patient size (this includes techniques or standardized protocols for targeted exams where dose is matched to indication/reason for exam; i.e. extremities or head) *Use of iterative reconstruction technique DLP: 530 mGy-cm FINDINGS: LUNG BASES: There is a 4 mm peripheral left lower lobe nodule axial 17 series 3. There is a 5 mm calcified lingular nodule axial image 9 LIVER, GALLBLADDER, AND BILIARY TREE: The liver is normal in size, shape, and attenuation. No focal hepatic lesion or biliary ductal dilatation is present. The gallbladder is is not seen and has presumably been removed. PANCREAS: Unremarkable. SPLEEN: Unremarkable. ADRENAL GLANDS: Unremarkable. KIDNEYS AND URETERS: The kidneys are normal in size, shape, and attenuation. No hydronephrosis, hydroureter, or calculi seen. No perinephric stranding. BLADDER: Unremarkable. GASTROINTESTINAL TRACT: The small and large bowel are unremarkable. The appendix is unremarkable. ABDOMINAL WALL: There is a small left inguinal hernia containing fat. LYMPH NODES: Normal. VASCULAR: Unremarkable. PELVIC VISCERA: Unremarkable. OSSEOUS STRUCTURES: There is heterogeneous attenuation of the subchondral femoral heads questionable for early AVN. CT/CT abdomen pelvis w con IMPRESSION: Small calcified and noncalcified left pulmonary nodules. Small left inguinal hernia containing fat. Question early femoral head AVN. Otherwise unremarkable exam. Fleischner guidelines were followed.
[2021-05-12] MEDS: Barium Sulfate Oral (Vanilla) 450 ML ORAL.SUSP 900 ML PO (09:47)
[2021-05-12] MEDS: iohexoL 350 MG/ML 100 ML INFUS..BTL IV (09:47)
== END 2021-05-12 06:31 | disposition home or self-care (01) ==
LOC: HO.CT 06:30
PROVIDERS: Visit Provider Nurse Practitioner Family
DX: R10.9 Unspecified abdominal pain (principal)
CPT/HCPCS: 74177; Q9967

== ENCOUNTER → 2021-06-21 13:55 | Outpatient (BNVA) | payer MEDICAID, SELFPAY | PROVIDERS: PCP Internal Medicine; Referring Provider Internal Medicine; Visit Provider Nurse Practitioner Family | DX: K58.0 Irritable bowel syndrome with diarrhea (principal); K21.9 Gastro-esophageal reflux disease without esophagitis | CPT/HCPCS: 99212 ==

== ENCOUNTER 2021-07-06 16:32 | Outpatient (REF) | payer MEDICAID, SELFPAY ==
--- NOTE | ~2021-07-06 | XR_ITS ---
EXAMINATION: XR KNEE, RIGHT CLINICAL INFORMATION: Right knee pain COMPARISON: None TECHNIQUE: Four views of the right knee. FINDINGS: No fracture or subluxation. Compartmental joint spaces are maintained. No joint effusion. Enthesophyte at the tibial tuberosity. XR/XR knee RT 4V IMPRESSION: No acute or suspicious finding of the knee. No significant arthritic changes.
== END 2021-07-06 16:33 | disposition home or self-care (01) ==
LOC: HO.XRAY 16:32
PROVIDERS: PCP Internal Medicine; Visit Provider Internal Medicine
DX: M25.561 Pain in right knee (principal)
CPT/HCPCS: 73564

== ENCOUNTER 2021-09-15 09:13 | Outpatient (REF) | payer MEDICAID, SELFPAY | END 2021-09-15 09:14 | disposition home or self-care (01) | LOC: HO.LNP 09:13 | PROVIDERS: Visit Provider Nurse Practitioner Family | DX: K21.9 Gastro-esophageal reflux disease without esophagitis (principal) | CPT/HCPCS: 87338 ==

== ENCOUNTER 2021-10-20 07:31 | Outpatient (REF) | payer MEDICAID, SELFPAY | END 2021-10-20 07:32 | disposition home or self-care (01) | LOC: HO.HOSX 07:31 | PROVIDERS: Visit Provider Physician Assistant | DX: Z13.89 Encounter for screening for other disorder (principal) ==

== ENCOUNTER 2021-10-31 07:45 | Outpatient (REF) | payer MEDICAID, SELFPAY ==
--- NOTE | ~2021-10-31 | XR_ITS ---
EXAMINATION: XR SHOULDER, LEFT CLINICAL INFORMATION: Pain COMPARISON: None TECHNIQUE: Three views of the left shoulder. FINDINGS: Bone alignment is normal. No fracture or dislocation is seen. The glenohumeral joint is normal. There is mild arthritis at the acromioclavicular joint. Soft tissues are unremarkable. XR/XR shoulder LT min 2V IMPRESSION: Mild arthritis at the acromioclavicular joint.
== END 2021-10-31 07:46 | disposition home or self-care (01) ==
LOC: HO.HOSX 07:45
PROVIDERS: Visit Provider Physician Assistant
DX: M75.102 Unspecified rotator cuff tear or rupture of left shoulder, not specified as traumatic (principal)
CPT/HCPCS: 20610; 73030; 99202; J1040

== ENCOUNTER 2021-11-14 08:02 | Outpatient (REF) | payer MEDICAID, SELFPAY ==
--- NOTE | ~2021-11-14 | XR_ITS ---
EXAMINATION: XR KNEE AP STANDING CLINICAL INFORMATION: Pain. COMPARISON: Right knee 07/06/2021 TECHNIQUE: AP bilateral standing view of the knees was obtained. FINDINGS: AP standing bilateral knee views reveal reduction in medial compartment both knees. No bony erosive changes. No loose bodies. No fracture or dislocation. The soft tissues are normal. XR/XR knee standing BI IMPRESSION: Mild reduction in medial compartment joint space both knees. No visible acute fracture or loose body seen..
== END 2021-11-14 08:03 | disposition home or self-care (01) ==
LOC: HO.HOSX 08:02
PROVIDERS: Visit Provider Physician Assistant
DX: M23.91 Unspecified internal derangement of right knee (principal)
CPT/HCPCS: 20610; 73565; 99202; J1040

== ENCOUNTER → 2022-01-16 13:30 | Outpatient (BNVA) | payer MEDICAID, SELFPAY | PROVIDERS: PCP Internal Medicine; Visit Provider Nurse Practitioner Family | DX: K58.2 Mixed irritable bowel syndrome (principal); K59.1 Functional diarrhea; K21.9 Gastro-esophageal reflux disease without esophagitis; Z79.899 Other long term (current) drug therapy | CPT/HCPCS: 99212 ==

== ENCOUNTER → 2022-03-27 14:05 | Outpatient (BNVA) | payer MEDICAID, SELFPAY | PROVIDERS: PCP Internal Medicine; Visit Provider Nurse Practitioner Family | DX: K21.9 Gastro-esophageal reflux disease without esophagitis (principal); K58.2 Mixed irritable bowel syndrome; R19.7 Diarrhea, unspecified | CPT/HCPCS: 99212 ==

== ENCOUNTER 2022-04-12 15:06 | Outpatient (REF) | payer MEDICAID, SELFPAY ==
--- NOTE | ~2022-04-12 | XR_ITS ---
EXAMINATION: XR CHEST CLINICAL INFORMATION: Reason for Exam cough X 3 weeks COMPARISON: Chest radiograph 05/28/2020 TECHNIQUE: 2 views of the chest FINDINGS: Clear lungs. No pneumothorax or pleural effusion. Normal cardiomediastinal silhouette. XR/XR chest 2V IMPRESSION: * Clear lungs.
[2022-04-12 16:29] LABS: Estimated Average Glucose 103 mg/dL; Hemoglobin A1c % 5.2 %
[2022-04-12 17:36] LABS: Alanine Aminotransferase 22 U/L (0-31); Albumin Level 4.2 g/dL (3.5-5.0); Alkaline Phosphatase 66 U/L (39-117); Aspartate Amino Transferase 20 U/L (5-31); Bilirubin Direct 0.2 mg/dL (0.0-0.5); Bilirubin Total 0.7 mg/dL (0.0-1.0); C Reactive Protein 0.26 mg/dL (< or = 0.50); Lipase 12 U/L (8-78); Total Protein 7.2 g/dL (6.5-8.0)
== END 2022-04-12 15:07 | disposition home or self-care (01) ==
LOC: HO.XRAY 15:06
PROVIDERS: Absent Provider Family Medicine; PCP Internal Medicine; Visit Provider Nurse Practitioner Family
DX: R10.9 Unspecified abdominal pain (principal); E11.9 Type 2 diabetes mellitus without complications; K58.9 Irritable bowel syndrome, unspecified; R05.9 Cough, unspecified; K21.9 Gastro-esophageal reflux disease without esophagitis
CPT/HCPCS: 36415; 71046; 80076; 83036; 83690; 86140; 87338

== ENCOUNTER 2022-04-12 18:06 | Outpatient (REF) | payer MEDICAID, SELFPAY | END 2022-04-12 18:07 | disposition home or self-care (01) | LOC: HO.LNP 18:06 | PROVIDERS: Visit Provider Nurse Practitioner Family | DX: K21.9 Gastro-esophageal reflux disease without esophagitis (principal); R10.9 Unspecified abdominal pain; E11.9 Type 2 diabetes mellitus without complications; K58.9 Irritable bowel syndrome, unspecified | CPT/HCPCS: 87338 ==

== ENCOUNTER → 2022-04-26 13:46 | Outpatient (BNVA) | payer MEDICAID, SELFPAY | PROVIDERS: PCP Internal Medicine; Visit Provider Physician Assistant | DX: M25.512 Pain in left shoulder (principal); M23.91 Unspecified internal derangement of right knee | CPT/HCPCS: 99212 ==

== ENCOUNTER → 2022-05-11 08:24 | Outpatient (BNVA) | payer MEDICAID, SELFPAY | PROVIDERS: PCP Internal Medicine; Visit Provider Nurse Practitioner Family | DX: K21.9 Gastro-esophageal reflux disease without esophagitis (principal); K58.0 Irritable bowel syndrome with diarrhea; R19.7 Diarrhea, unspecified | CPT/HCPCS: 99212 ==

== ENCOUNTER 2022-05-29 14:33 | Outpatient (REF) | payer MEDICAID, SELFPAY ==
--- NOTE | ~2022-05-29 | MM_ITS ---
EXAMINATION: MM SCREENING DIGITAL BREAST TOMOSYNTHESIS, BILATERAL CLINICAL INFORMATION: Screening. Asymptomatic. The lifetime risk of breast cancer based on the Tyrer-Cuzick Model is 17%. COMPARISON: Mammography: 02/20/2018 and studies dating back to 03/28/2010. TECHNIQUE: Digital breast tomosynthesis is performed in both the craniocaudal and mediolateral oblique views along with computer-aided detection (CAD). Synthesized 2D images are generated from the tomosynthesis. FINDINGS: The breasts are heterogeneously dense, which may obscure small masses (ACR BI-RADS breast composition Category c). There is a stable parenchymal pattern of the left breast with no new abnormal dominant masses or suspicious grouping of calcifications. About the superior anterior aspect of the right breast, there is a region of what appears to be architectural distortion likely representing superimposition of fibroglandular tissues. Recommend spot compression views in mediolateral oblique projection as well as a 90 degree mediolateral view. MM/MM tomosynthesis screening BI IMPRESSION: Right breast density for further evaluation as described. ASSESSMENT: BI-RADS 0: Incomplete - Need Additional Imaging Evaluation RECOMMENDATION: 1. Additional views of the right breast. 2. Targeted ultrasound if warranted after review of the additional views. 3. Radiology department staff will contact the patient for additional imaging.
== END 2022-05-29 14:34 | disposition home or self-care (01) ==
LOC: HO.MAMMO 14:33
PROVIDERS: Visit Provider Internal Medicine
DX: Z12.31 Encounter for screening mammogram for malignant neoplasm of breast (principal)
CPT/HCPCS: 77063; 77067

== ENCOUNTER 2022-07-02 14:24 | Outpatient (REF) | payer MEDICAID, SELFPAY ==
--- NOTE | ~2022-07-02 | MM_ITS ---
EXAMINATION: MM DIAGNOSTIC DIGITAL BREAST TOMOSYNTHESIS, RIGHT CLINICAL INFORMATION: Recall from screening for question of architectural changes anterior right breast just superior to posterior nipple line limited to MLO view. COMPARISON: Mammography: 05/29/2022, 02/20/2018, 11/29/2016 TECHNIQUE: Digital breast tomosynthesis is performed. 2D images are generated from the tomosynthesis. The following views are obtained: Spot MLO, standard ML FINDINGS: There are scattered areas of fibroglandular density (ACR BI-RADS breast composition Category b). Additional views show no architectural abnormality. There is no developing density or significant changes from prior studies. Results are discussed with the patient and family at time of visit, using an admissions counselor. MM/MM tomosynthesis added views R IMPRESSION: Additional views show no significant changes from prior studies. ASSESSMENT: BI-RADS 1: Negative RECOMMENDATION: Routine annual mammography screening. This patient's information was entered into a reminder system with a target due date for their next mammogram.
== END 2022-07-02 14:25 | disposition home or self-care (01) ==
LOC: HO.MAMMO 14:24
PROVIDERS: PCP Internal Medicine; Visit Provider Internal Medicine
DX: R92.2 Inconclusive mammogram (principal)
CPT/HCPCS: 77061; 77065

== ENCOUNTER 2022-08-30 13:59 | Outpatient (AMB) | payer MEDICAID, SELFPAY ==
--- NOTE | 2022-08-30 14:08 | MHC.OFFVIS ---
Intake Vital Signs 08/30/22 14:09 Height 5 ft 6 in Weight 171 lb BMI 27.6 Handedness Right Intake Visit Reasons: OV - LT Shoulder pain, last seen 04/26/22 Intake Note: Loraine is a 46 year old right hand dominant female who presents today for a follow up appointment for her left shoulder pain, last injection 10/31/21. Patient reports her last injection gave her one week of relief. She states that pain management hasn't reached out to her yet. Allergies No Known Allergies [No Known Allergies*] Allergy (Verified 08/30/22 14:09) HPI OV - LT Shoulder pain, last seen 04/26/22 HPI Details 46-year-old right hand dominant female, who is Somali speaking, presents in the office today for a follow up of right knee pain. The patient had a cortisone injection on 11/14/2021. She reports her last cortisone injection gave her one week of relief. She reports her pain is a 7/10 while in the office today. She states the pain radiates down to her fingers. Patient states Pain Management has not reached out to her in regards to the left shoulder. She stated she called the Pain Management office and was told they were waiting on the referral. 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 No ecchymosis, erythema, or joint effusion. No tenderness to palpation to the medial or lateral joint lines. Tenderness to palpable over the tibia tubercle. Full knee extension and flexion. Negative Rody's. Negative anterior draw. NVI. Psych Mental Status: mental status grossly normal Office Procedures Joint Injection/Drain Joint Injection/Drain Primary Site: right knee Prep: site was prepped using aseptic technique, ethochloride spray was applied and injection warnings given Injected: 80 mg of, DepoMedrol, with 8 mL of (2% plain lido) and in the joint Approach Used: anterolateral Procedure: The patient tolerated the procedure well, but had some pain with the injection and there was some relief with the local anesthesia Coding 74976 - Large joint Procedure code (CPT) selection complete Results Reviewed Results Reviewed: 08/30/22 14:36 Lidocaine HCl 2 % MPF [Xylocaine 2 % MPF] 5 ml .ROUTE .STK-MED ONE methylPREDNISolone acetate [DEPO-MedroL] 80 mg .ROUTE .STK-MED ONE Assessment & Plan Assessment & Plan (1) Internal derangement of right knee: Code(s): M23.91 - Unspecified internal derangement of right knee Plan Ms. Russ is a 46-year-old right hand dominant female, who is Somali speaking, presents in the office today for a follow up of right knee pain. The patient had a cortisone injection on 11/14/2021. She reports her last cortisone injection gave her one week of relief. She reports her pain is a 7/10 while in the office today. She states the pain radiates down to her fingers. Patient states Pain Management has not reached out to her in regards to the left shoulder. She stated she called the Pain Management office and was told they were waiting on the referral. Right knee: The patient was offered a cortisone injection in the right knee with 80 mg of DepoMedrol. The patient was explained the risk, benefits, and alternatives to receiving this injection. After receiving consent for the injection, the patient had the procedure done while in office today. The patient tolerated the procedure well with no complications. In the event the patient does not get relief from the cortisone injection she will call the office and an order for an MRI will be placed. Left shoulder: I will place another referral to Pain Management for further evaluation and treatment of the patient. The original referral was placed in 05/2022. I placed this second order stat. We will also send a message to follow up for the patient. The patient was instructed to call the office if she does not hear from them in a week. Follow up will be PRN, or sooner if needed. Orders: Referrals Pain Management Referral M54.12 - Radiculopathy, cervical region Patient Instructions: Scribed for Mag Hopson PA-C by Carolyn Patel medical laboratory technical officer, on 08/30/2022 at 2:04 pm, EST. Your attestation Coding Level of Care Code Est Pt Level 4 (42616) Diagnoses Internal derangement of right knee M23.91 CPT Codes Coding - 50532 Large joint: 37557 - Large joint ([id number])
[2022-08-30 14:09] VITALS: BMI 27.6
== END 2022-08-30 14:56 | disposition home or self-care (01) ==
PROVIDERS: PCP Internal Medicine; Visit Provider Physician Assistant
DX: M23.91 Unspecified internal derangement of right knee (principal)
CPT/HCPCS: 20610; 99214

== ENCOUNTER → 2022-08-30 13:59 | Outpatient (BNVA) | payer MEDICAID, SELFPAY | PROVIDERS: PCP Internal Medicine; Visit Provider Physician Assistant | DX: M23.91 Unspecified internal derangement of right knee (principal) | CPT/HCPCS: 20610; 99212; 99214; J1040 ==

== ENCOUNTER 2022-09-17 13:35 | Outpatient (AMB) | payer MEDICAID, SELFPAY ==
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
[2022-09-17 13:38] VITALS: BP 130/59; PULSE 73; RESP 14; BMI 26.1
== END 2022-09-17 14:23 | disposition home or self-care (01) ==
PROVIDERS: PCP Internal Medicine; Visit Provider Internal Medicine
DX: M75.102 Unspecified rotator cuff tear or rupture of left shoulder, not specified as traumatic (principal)
CPT/HCPCS: 20606; 99203

== ENCOUNTER → 2022-09-17 13:35 | Outpatient (BNVA) | payer MEDICAID, SELFPAY | PROVIDERS: PCP Internal Medicine; Visit Provider Internal Medicine | DX: M75.102 Unspecified rotator cuff tear or rupture of left shoulder, not specified as traumatic (principal) | CPT/HCPCS: 20606; 99202; J2795; J3301 ==

== ENCOUNTER 2022-10-09 12:16 | Outpatient (REF) | payer MEDICAID, SELFPAY ==
[2022-10-09 13:44] LABS: MANUAL DIFF FLAG NO
[2022-10-09 13:51] LABS: Basophils Percent Auto 0.3 % (0-2); Eosinophils Absolute Auto 0.1 X10*3/uL (0.0-0.4); Eosinophils Percent Auto 0.7 % (0-4); Hemoglobin 13.1 g/dl (12.0-16.0); Imm Gran Abs Auto 0.03 X10*3/uL (0.00-0.03); Imm Gran Pct Auto 0.4 % (0.0-0.4); Lymphocytes Absolute Auto 1.8 X10*3/uL (1.2-4.9); Lymphocytes Percent Auto 23.8 % (20-40); Mean Corpuscular Hemoglobin 28.4 pg (27.0-33.0); Mean Corpuscular Volume 88.9 fL (80.0-98.0); Mean Platelet Volume 9.4 fL (9.4-12.3); Monocytes Absolute Auto 0.5 X10*3/uL (0.1-1.2); Monocytes Percent Auto 6.8 % (2-11); Neutrophils Absolute Auto 5.1 x10*3/uL (2.0-8.3); Platelet Count 305 X10*3/uL (160-400); Red Blood Count 4.61 X10*6/uL (4.20-5.50); Red Cell Distribution Width 11.9 % (11.0-16.0); White Blood Count 7.5 X10*3/uL (4.8-10.8)
[2022-10-09 14:06] LABS: Iron 81 mcg/dL (30-160); Percent Iron Saturation 22 % (15-50); Total Iron Binding Capacity 363 mcg/dL (228-428); Unsaturated Iron Binding 282 ug/dL
[2022-10-09 14:15] LABS: Ferritin 96 ng/mL (10-250); TSH reflex Free T4 1.33 uIU/mL (0.32-4.0)
== END 2022-10-09 12:17 | disposition home or self-care (01) ==
LOC: HO.HHCL 12:16
PROVIDERS: Visit Provider Nurse Practitioner Primary Care
DX: N93.9 Abnormal uterine and vaginal bleeding, unspecified (principal)
CPT/HCPCS: 36415; 82728; 83540; 84443; 85025

== ENCOUNTER 2022-10-23 09:47 | Day surgery (SDC) | payer MEDICAID, SELFPAY ==
[2022-10-19 07:52] VITALS: BMI 27.6
--- NOTE | 2022-10-22 09:20 | HO.ANESPROP2 ---
Documented by User: Sia Stevens NP 10/22/22 09:20 HPI - Anesthesia Eval Consult details Narrative: 47yo F for Upper Endoscopy and Colonoscopy PMFSH Active Problems Active Problems: All Active Problems (Updated 05/11/22 @ 09:06 by Aubrie Steinberg, [facility]) Internal derangement of right knee (Acute) Painful arc syndrome of left shoulder (Acute) Perimenopause (Acute) COVID-19 (Acute) Pneumonia due to 2019-nCoV (Acute) Past Medical History Medical History Anxiety Fibromyalgia Depression No known health problems Family History Family History Mother HTN (hypertension) Sister HTN (hypertension) Father Cancer Surgical History Surgical History History of breast surgery History of cholecystectomy H/O tubal ligation Hx of colonoscopy Social History Social History Household Members: Spouse and Children Alcohol intake: never Patient Tobacco Use Status: Never used Tobacco Advance Directives: No Advance Directives Information Provided: Yes Current occupational status: unemployed 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 Meds Allergies Allergy/AdvReac Type Severity Reaction Status Date / Time No Known Allergies Allergy Verified 09/17/22 13:39 [No Known Allergies*] Home Medications Medication Instructions Recorded Confirmed Last Taken Type acetaminophen 500 mg tablet 1,000 mg PO Q8H PRN 10/24/20 09/17/22 Unknown History fluticasone propionate 50 2 spray intranasal DAILY 10/24/20 09/17/22 Unknown History mcg/actuation nasal spray,suspension omeprazole 40 mg capsule,delayed 40 mg PO DAILY 10/24/20 09/17/22 Unknown History release trazodone 150 mg tablet 150 mg PO DAILY 10/24/20 09/17/22 Unknown History cetirizine 10 mg tablet 10 mg PO DAILY PRN congestion 06/21/21 09/17/22 Unknown History cyclobenzaprine 10 mg tablet 10 mg PO TID 06/21/21 09/17/22 Unknown History hydroxyzine pamoate 25 mg capsule 25 mg PO Q6H PRN anxiety 06/21/21 09/17/22 Unknown History olanzapine 15 mg tablet 15 mg PO BEDTIME 06/21/21 09/17/22 Unknown History prazosin 5 mg capsule 5 mg PO BEDTIME 06/21/21 09/17/22 Unknown History divalproex 500 mg tablet,extended 500 mg PO DAILY 10/31/21 09/17/22 Unknown History release 24 hr fluoxetine 10 mg capsule 10 mg PO DAILY 10/31/21 09/17/22 Unknown History gabapentin 600 mg tablet 600 mg PO TID 10/31/21 09/17/22 Unknown History olanzapine 7.5 mg tablet 7.5 mg PO QAM 10/31/21 09/17/22 Unknown History loperamide 2 mg capsule 2 mg PO Q8H PRN 09/17/22 09/17/22 Unknown History Exam Exam Date and Time: October 22, 2022919 Height,Weight and Vital Signs: Height 5 ft 6 in Weight 77.564 kg Assessment and Plan Assessment Anesthesia Assessment: Chart Reviewed Documented by User: Zoë Escalante MD 10/23/22 11:49 PMFSH Active Problems Active Problems: All Active Problems (Updated 10/23/22 @ 11:23 by Zoë Escalante MD) Internal derangement of right knee (Acute) Painful arc syndrome of left shoulder (Acute) Perimenopause (Acute) COVID-19 (Acute) Pneumonia due to 2019-nCoV (Acute) Anxiety/Depression Past Medical History Medical History Anxiety Fibromyalgia Depression No known health problems Family History Family History Mother HTN (hypertension) Sister HTN (hypertension) Father Cancer Family history of problems with anesthesia: No Surgical History Surgical History History of breast surgery History of cholecystectomy H/O tubal ligation Hx of colonoscopy History of Problems with Anesthesia: No Social History Social History Household Members: Spouse and Children Alcohol intake: never Patient Tobacco Use Status: Never used Tobacco Advance Directives: No Advance Directives Information Provided: Yes Current occupational status: unemployed 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 Meds Allergies Allergy/AdvReac Type Severity Reaction Status Date / Time No Known Allergies Allergy Verified 09/17/22 13:39 [No Known Allergies*] Home Medications Medication Instructions Recorded Confirmed Last Taken Type acetaminophen 500 mg tablet 1,000 mg PO Q8H PRN 10/24/20 09/17/22 Unknown History fluticasone propionate 50 2 spray intranasal DAILY 10/24/20 09/17/22 Unknown History mcg/actuation nasal spray,suspension omeprazole 40 mg capsule,delayed 40 mg PO DAILY 10/24/20 09/17/22 Unknown History release trazodone 150 mg tablet 150 mg PO DAILY 10/24/20 09/17/22 Unknown History cetirizine 10 mg tablet 10 mg PO DAILY PRN congestion 06/21/21 09/17/22 Unknown History cyclobenzaprine 10 mg tablet 10 mg PO TID 06/21/21 09/17/22 Unknown History hydroxyzine pamoate 25 mg capsule 25 mg PO Q6H PRN anxiety 06/21/21 09/17/22 Unknown History olanzapine 15 mg tablet 15 mg PO BEDTIME 06/21/21 09/17/22 Unknown History prazosin 5 mg capsule 5 mg PO BEDTIME 06/21/21 09/17/22 Unknown History divalproex 500 mg tablet,extended 500 mg PO DAILY 10/31/21 09/17/22 Unknown History release 24 hr fluoxetine 10 mg capsule 10 mg PO DAILY 10/31/21 09/17/22 Unknown History gabapentin 600 mg tablet 600 mg PO TID 10/31/21 09/17/22 Unknown History olanzapine 7.5 mg tablet 7.5 mg PO QAM 10/31/21 09/17/22 Unknown History loperamide 2 mg capsule 2 mg PO Q8H PRN 09/17/22 09/17/22 Unknown History Exam Height,Weight and Vital Signs: Height 5 ft 6 in Weight 77.564 kg Vital Signs Temp Pulse Resp BP Pulse Ox O2 Del Method 10/23/22 10:35 96.9 F 70 16 113/66 97 Room Air Airway Mallampati Class: II TM Dist: >3cm Neck ROM: Full Loose/Missing/Broken Teeth: Yes (Missing top right back, bottom left back. Denies broken or loose teeth) Heart: RRR Lungs: CTAB Assessment and Plan Assessment Anesthesia Assessment: Anesthesia Plan Discussed Final Anesthetic Review Family History of Problems with Anesthesia: No History of Problems with Anesthesia: No NPO: Yes ASA Class: II Final Preanesthetic Review: No Changes in Pt Med Stat, Meds/Allgs Chart Reviewed, Consent Obtained/Reviewed and Anes Risks/Benef Reviewed Patient Risk: Low Procedure Risk: Low Assessment/Block/Sedation in SS: Assess/Block/Sedation-SS Anesthetic Plan Anesthetic Plan: MAC: Disposition: Standard PACU
[2022-10-23 10:17] VITALS: BMI 26.1
[2022-10-23] MEDS: Lactated Ringers 1,000 ML 100 ML IVCONT (10:34)
[2022-10-23 10:35] VITALS: BP 113/66; PULSE 70; RESP 16; TEMP 36.1; O2SAT 97
--- NOTE | 2022-10-23 11:29 | MHC.SHP ---
Pre-Procedural Eval Section A Date of Service: 10/23/22 Section B Chief Complaint: GERD, IBS, Diarrhea, unspecified Relevant Family History (Specify if Yes): No Relevant Social History: None Present Medications: see Short Stay Collaborative assessment Medical History: Significant History (Anxiety Fibromyalgia Depression) History of Previous Operations: Relevant previous surgery/procedure and date(s) (History of breast surgery History of cholecystectomy H/O tubal ligation Hx of colonoscopy) Allergies: Allergies Allergy/AdvReac Type Severity Reaction Status Date / Time No Known Allergies Allergy Verified 09/17/22 13:39 [No Known Allergies*] Review of Systems Sugical H&P ROS: Negative: Constitution, Cardiovascular, Respiratory, Neurological, Psychiatric, Hem-Onc, Allergic/Immunologic, Gastrointestinal, Genitourinary, Musculoskeletal, Integumentary, Endocrine and Eyes/Ears/Nose/Throat Exam Surgical H&P Exam: Normal: HEENT, Normal: Heart, Normal: Lungs, Normal: Extremities, Normal: Abdomen, Normal: Skin and Normal: Neurological Plan Diagnosis/Plan: Unchanged I have reviewed the history and physical and performed a pertinent physical examination on my patient. No changes have occurred unless specified. Time Spent With Patient Time: Total time managing care of this patient today ____ minutes.
--- NOTE | 2022-10-23 11:30 | W.PM.OPN ---
Operative Note Operative Note Date of Service: 10/23/22 Narrative: Operative Information Procedure Description: EGD, Colonoscopy Indication: diarrhea Anesthesia: MAC FLEXIBLE TRANSORAL UPPER GASTROINTESTINAL ENDOSCOPY AND COLONOSCOPY PROCEDURE NOTE UPPER ENDOSCOPY Consent: Indications for the procedure and potential complications of bleeding, perforation, reaction to medications and missed diagnosis were discussed with the patient and informed consent was obtained. Instrument: Olympus GIF H 190 J mid size upper endoscope Monitoring: Vital signs and clinical assessment, continuous EKG monitoring, Pulse oximetry, Carbon Dioxide monitoring and blood pressure monitoring were done throughout the procedure. Procedure: The patient was placed in the left lateral decubitis position and pre-procedure medications were administered and a bite block was placed. The endoscope was inserted into the mouth and advanced under direct vision to the third part of duodenum. A careful inspection was made as the upper endoscope was withdrawn including a retroflexed examination of the proximal stomach; Findings and interventions are described below. Findings: Larynx:normal Esophagus: GE junction at 38 cm, diaphragm hiatus at 38 cm, congestion and erythema with bogginess at GEJ, bx taken as well as from proximal and distal esophagus, schatzki ring noted Stomach: Patchy erythema noted. Biopsies were obtained. Grade 2 flap valve on retroflexed examination of the cardia. Duodenum: Normal bulb and descending duodenum, bx taken Intervention: Biopsies as noted above COLONOSCOPY Instrument: Olympus variable stiffness pediatric scope 190L Colonoscopy Monitoring: Vital signs and clinical assessment, continuous EKG monitoring, Pulse oximetry, Carbon Dioxide monitoring and blood pressure monitoring were done throughout the procedure. Colon withdrawal time was 16 minutes. Procedure: The patient was placed in the left lateral decubitis position and pre-procedure medications were administered. After a digital rectal examination of the ano-rectum, the video colonoscope was inserted into the rectum and advanced through the colon to the cecum/TI. The colonoscope was slowly withdrawn in a retrograde panoramic fashion and the colon mucosa was carefully examined including a retroflexed view of the rectum. Findings and interventions are described below. Procedure Difficulty:easy Findings: Terminal Ileum-normal, bx taken Random colon bx taken Cecum:normal Ascending Colon: normal Transverse Colon -normal Descending Colon:normal Sigmoid Colon: normal Rectum: Retroflexion with small internal hemorrhoids, grade I Anorectum - normal Colon preparation: Norman Bowel Preparation Scale Right colon; 2 Transverse colon:1- 2 Left colon; 1-2 (0 = Unprepared colon segment with mucosa not seen due to solid stool that cannot be cleared. 1 = Portion of mucosa of the colon segment seen, but other areas of the colon segment not well seen due to staining, residual stool and/or opaque liquid. 2 = Minor amount of residual staining, small fragments of stool and/or opaque liquid, but mucosa of colon segment seen well. 3 = Entire mucosa of colon segment seen well with no residual staining, small fragments of stool or opaque liquid) Impression and Post Procedure Diagnosis: Endoscopy Findings: esophagitis gastritis schatzki ring Colonoscopy Findings: internal hemorrhoids Plan: Await Pathology results Repeat Colonoscopy in 5 years due to fair prep or earlier if clinically indicated High fiber diet leaflet avoid straining at stool, epsom salts and sitz bath, anusol supps or cream GERD precautions, confirm if taking PPI Above findings were reviewed with the patient and relevant handouts were provided if indicated.
[2022-10-23 12:24] VITALS: BP 101/61; PULSE 84; RESP 17; TEMP 36.3; O2SAT 100
[2022-10-23 12:39] VITALS: BP 108/69; PULSE 68; RESP 16; TEMP 36.6; O2SAT 99
== END 2022-10-23 13:04 | disposition home or self-care (01) ==
PROVIDERS: PCP Internal Medicine; Visit Provider Internal Medicine Gastroenterology
PROC: (CPT 45380; principal; 2022-10-23 11:40)
DX: K64.0 First degree hemorrhoids (principal); R19.7 Diarrhea, unspecified; K22.2 Esophageal obstruction; K58.9 Irritable bowel syndrome, unspecified; K29.60 Other gastritis without bleeding; K20.80 Other esophagitis without bleeding; K21.9 Gastro-esophageal reflux disease without esophagitis; Z98.51 Tubal ligation status; Z90.49 Acquired absence of other specified parts of digestive tract; Z79.899 Other long term (current) drug therapy
CPT/HCPCS: 45380; 43239; 88305; 88342

== ENCOUNTER → 2022-10-23 09:47 | Outpatient (BNV) | payer MEDICAID, SELFPAY | PROVIDERS: PCP Internal Medicine; Visit Provider Internal Medicine Gastroenterology | DX: R19.7 Diarrhea, unspecified (principal); K22.2 Esophageal obstruction; K20.90 Esophagitis, unspecified without bleeding; K29.70 Gastritis, unspecified, without bleeding; K64.9 Unspecified hemorrhoids | CPT/HCPCS: 43239; 45380 ==

== ENCOUNTER 2022-10-29 18:01 | Emergency (ER) | payer MEDICAID, SELFPAY ==
--- NOTE | ~2022-10-29 | XR_ITS ---
EXAMINATION: XR CHEST CLINICAL INFORMATION: resolved SOB COMPARISON: Chest x-ray April 12, 2022 TECHNIQUE: Frontal view of the chest was obtained. FINDINGS: No significant abnormality is noted involving the heart, lungs, mediastinum, bony thorax or soft tissues. XR/XR chest 1V IMPRESSION: Unremarkable examination.
--- NOTE | 2022-10-29 18:16 | ED_ITS ---
HPI - Anxiety General Chief Complaint: Anxiety Stated Complaint: panic attack Time Seen by Provider: 10/29/22 18:47 Source: patient Mode of arrival: ambulatory Limitations: no limitations History of Present Illness HPI narrative: 47-year-old female history of anxiety panic attacks cluastophobia presents to ED for episode of shortness of breath, impending doom sensation, tingling in extremities & face/lips, and feeling nervous. patient has episodes before the in past. Patient has had similar panic attacks before in the past. patient states because this was a new environment, first time in physical therapy, which led to her having an anxiety reaction. patient has anxiety in new places. Patient having physical therapy for chronic left shoulder patient have for 1 year. Patient denies any chest pain, leg swelling, calf pain, coughing up blood, or pleurisy. Patient feeling better after receiving Ativan. Patient not suicidal or homicidal. Patient denies recent trauma Related Data Home Medications Medication Instructions Recorded Confirmed acetaminophen 500 mg tablet 1,000 mg PO Q8H PRN 10/24/20 09/17/22 fluticasone propionate 50 2 spray intranasal DAILY 10/24/20 09/17/22 mcg/actuation nasal spray,suspension omeprazole 40 mg capsule,delayed 40 mg PO DAILY 10/24/20 09/17/22 release trazodone 150 mg tablet 150 mg PO DAILY 10/24/20 09/17/22 cetirizine 10 mg tablet 10 mg PO DAILY PRN congestion 06/21/21 09/17/22 cyclobenzaprine 10 mg tablet 10 mg PO TID 06/21/21 09/17/22 hydroxyzine pamoate 25 mg capsule 25 mg PO Q6H PRN anxiety 06/21/21 09/17/22 olanzapine 15 mg tablet 15 mg PO BEDTIME 06/21/21 09/17/22 prazosin 5 mg capsule 5 mg PO BEDTIME 06/21/21 09/17/22 divalproex 500 mg tablet,extended 500 mg PO DAILY 10/31/21 09/17/22 release 24 hr fluoxetine 10 mg capsule 10 mg PO DAILY 10/31/21 09/17/22 gabapentin 600 mg tablet 600 mg PO TID 10/31/21 09/17/22 olanzapine 7.5 mg tablet 7.5 mg PO QAM 10/31/21 09/17/22 loperamide 2 mg capsule 2 mg PO Q8H PRN 09/17/22 09/17/22 Previous Rx's Medication Instructions Recorded ergocalciferol (vitamin D2) 1,250 1,250 mcg PO QWEEK #14 caps 09/08/21 mcg (50,000 unit) capsule ondansetron 4 mg disintegrating 4 mg PO Q8H PRN nausea and 10/11/21 tablet vomiting #20 tabs famotidine 40 mg tablet 40 mg PO BEDTIME #90 tabs 03/27/22 bisacodyl 5 mg tablet,delayed 10 mg (2 x 5 mg) PO ONCE 1 day #2 10/18/22 release (Dulcolax (bisacodyl)) tabs polyethylene glycol 3350 17 238 g PO ONCE 1 day #238 grams 10/18/22 gram/dose oral powder (Miralax) Allergies Allergy/AdvReac Type Severity Reaction Status Date / Time No Known Allergies Allergy Verified 10/29/22 18:17 [No Known Allergies*] Review of Systems 2 Review of Systems: anxiety attack Yes all other systems are reviewed and are negative [facility] Past Medical History Medical History Anxiety Fibromyalgia Depression No known health problems Surgical History History of breast surgery History of cholecystectomy H/O tubal ligation Hx of colonoscopy Family History Family History Mother HTN (hypertension) Sister HTN (hypertension) Father Cancer Social History Social History Household Members: Spouse and Children Alcohol intake: never Patient Tobacco Use Status: Never used Tobacco Advance Directives: No Advance Directives Information Provided: No Current occupational status: unemployed 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 Physical Exam 2 Vital Signs: Vital Signs: Last Vital Signs Temp 98.0 F 10/29/22 18:17 Pulse 85 10/29/22 18:17 Resp 18 10/29/22 18:17 BP 106/64 10/29/22 18:17 Pulse Ox 100 10/29/22 18:17 O2 Del Method Room Air 10/29/22 18:17 BMI result Body Mass Index 25.8 Const: Other: anxioud General: cooperative and healthy appearing Orientation/consciousness: o riented to person, oriented to place, oriented to time and patient oriented x3 HEENT: Head: Yes normal to inspection, Yes No palpable skull fracture present, Yes normocephalic, Yes atraumatic and No abrasion Eyes: General: appearance normal, both eyes and all related structures Neck: Neck: Yes normal visual inspection, Yes full ROM, Yes no lymphadenopathy, Yes no meningeal signs, Yes trachea midline, Yes supple, No anterior neck swelling and No tender Chest: Chest palpation & inspection: normal inspection of the chest and normal palpation of entire chest wall Resp: Effort & Inspection: normal respiratory effort and able to speak in complete sentences Auscultation: clear to auscultation bilaterally Cardio: Jugular venous distension: no JVD Heart sounds: S1 normal heart sound present and S2 normal heart sound present GI: Inspection: Yes normal to inspection and No abdominal wall ecchymosis P alpation (GI): Soft to palpation, not firm, nontender, no guarding and not rigid : General: No CVA tenderness and Yes no CVA tenderness Back/Spine/Pelvis: Back: no CVA tenderness, No CVA tenderness and No back tenderness Skin: General skin exam: no rashes or lesions noted, elasticity normal and turgor normal Neuro: General: oriented to person, oriented to place, oriented to time, patient oriented x3, gait normal, tone normal, moves all extremities, Normal light touch and pain sensation, no meningeal signs, no focal motor deficits, CN's II-XI intact bilaterally and normal sensation to monofilament Extrem: Other: Bilateral lower extremity negative for swelling, pitting edema, calf tenderness General: Yes normal to inspection and Yes full ROM Psych: Appearance: grossly normal, well kempt and not disheveled Course Course Course Narrative: RME - 47 yo female presents to the ER from Physical Therapy upstairs for evaluation of a panic attack for the last 30 minutes. History of similar episodes. Plan: Medications Administered Discontinued Medications Generic Name Dose Route Start Last Admin Trade Name Freq PRN Reason Stop Dose Admin Lorazepam 1 mg 10/29/22 18:18 10/29/22 18:31 Lorazepam 1 Mg Tablet PO 10/29/22 18:19 1 mg ONCE ONE Administration Medical Decision Making Medical Decision Making [facility] Narrative: 47-year-old female with history of anxiety presents to the ED for anxieties as admission for first-time a bit of physical therapy. Patient states impending doom sensation, sweating, shortness of breath, tingling all over her body, hyperventilating, extremely nervous. After Ativan patient states started feeling better. Negative for any neuro deficits. Patient presently denies any chest pain or shortness of breath. Due to patient being over 40 with just do cardiac evaluation. 20:40: EKG negative STEMI. Troponin negative. BNP negative. Chest x-ray normal. Patient is tingling resolved. Patient no longer anxious. Patient re- evaluated negative for pleurisy, calf pain, coughing up blood, shortness of breath, chest pain, headache, vomiting, or tingling. Patient presently asymptomatic. Not suspecting pulmonary embolus, myocardial infarction, or CHF. Differential Diagnosis Differential Diagnoses: The differential diagnosis associated with the presentation includes ( PE, pneumonia, anxiety, myocardial infarction, pulmonary embolus, CHF,) Admission/Observation Consideration of admission/observation: Escalation of care including admission/observation considered Lab Data MDM Lab Attestation statement: I reviewed the patient's lab results. 10/29/22 19:35 10/29/22 19:35 Labs: Lab Results 10/29/22 Range/Units 19:35 WBC 8.2 (4.8-10.8) X10*3/uL RBC 4.23 (4.20-5.50) X10*6/uL Hgb 12.3 (12.0-16.0) g/dl Hct 36.1 L (37.0-47.0) % MCV 85.3 (80.0-98.0) fL MCH 29.1 (27.0-33.0) pg MCHC 34.1 (31.0-35.0) g/dl RDW 11.9 (11.0-16.0) % Plt Count 362 (160-400) X10*3/uL MPV 9.6 (9.4-12.3) fL Immature Gran % (Auto) 0.2 (0.0-0.4) % Neut % (Auto) 60.3 (45-73) % Lymph % (Auto) 31.0 (20-40) % [place] % (Auto) 7.4 (2-11) % Eos % (Auto) 0.7 (0-4) % Baso % (Auto) 0.4 (0-2) % Lymph # (Auto) 2.5 (1.2-4.9) X10*3/uL [place] # (Auto) 0.6 (0.1-1.2) X10*3/uL Eos # (Auto) 0.1 (0.0-0.4) X10*3/uL Baso # (Auto) 0.0 (0.0-0.2) X10*3/uL Abs Immat Gran (auto) 0.02 (0.00-0.03) X10*3/uL Absolute Neuts (auto) 4.9 (2.0-8.3) x10*3/uL Absolute Nucleated RBC 0.000 (0.0-0.012) X10*3/uL Nucleated RBC % (auto) 0.0 (0.0-0.2) /100WBC PT 10.5 L (11.1-13.3) SEC INR 0.9 (0.9-1.1) APTT 27.7 (26.0-36.4) SEC Sodium 136 (135-145) mmol/L Potassium 3.5 (3.3-5.1) mmol/L Chloride 107 (96-108) mmol/L Carbon Dioxide 21 L (22-29) mmol/L Anion Gap 12 (12-20) BUN 9 (9-16) mg/dL Creatinine 0.78 (0.5-1.4) mg/dL Estim Creat Clear Calc 89.9 Estimated GFR > 60 Random Glucose 100 (60-115) mg/dL Calcium 8.6 D (8.4-10.2) mg/dL Total Bilirubin 0.4 (0.0-1.0) mg/dL AST 16 (5-31) U/L ALT 14 (0-31) U/L Alkaline Phosphatase 66 (39-117) U/L Troponin I High Sens < 2.7 (<3.5-17.0) ng/L B-Natriuretic Peptide 28 (<100) pg/mL Total Protein 6.7 (6.5-8.0) g/dL Albumin 3.5 (3.5-5.0) g/dL Independent Interpretation I performed an independent interpretation of an: Plain X-Ray Radiology Impression Discussion of test interpretation with radiology: I have reviewed the radiologist's reading. Independent Historian Clinical information obtained from an independent historian. History obtained from or confirmed by: Spouse External Record Review External record reviewed: Other (Prior ED visit) Discharge Plan Discharge Clinical Impression: Acute anxiety, Chest pain Patient Disposition: Home, Self-Care Instructions: Chest Pain (DC), Anxiety (ED) Additional Instructions: return to the ED immediately for any chest pain, shortness of breath, leg swelling, calf pain, coughing up blood, chest pain on inspiration, weakness, slurred speech, facial droop, paralysis of extremities, loss of vision, headache, dizziness, numbness/ tingling, or any other concerning symptoms. Please follow-up with primary care provider. Prescriptions: No Action ergocalciferol (vitamin D2) 1,250 mcg (50,000 unit) capsule 1,250 mcg PO QWEEK Qty: 14 0RF ondansetron 4 mg tablet,disintegrating 4 mg PO Q8H PRN (Reason: nausea and vomiting) Qty: 20 0RF bisacodyl [Dulcolax (bisacodyl)] 5 mg tablet,delayed release (DR/EC) 10 mg PO ONCE 1 Days Qty: 2 0RF Rx Instructions: take at noon the day before colonoscopy polyethylene glycol 3350 [Miralax] 17 gram/dose powder 238 g PO ONCE 1 Days Qty: 238 0RF Rx Instructions: Take as directed by mouth the day before your procedure. acetaminophen 500 mg tablet 1,000 mg PO Q8H PRN fluticasone propionate 50 mcg/actuation spray,suspension 2 spray intranasal DAILY trazodone 150 mg tablet 150 mg PO DAILY omeprazole 40 mg capsule,delayed release(DR/EC) 40 mg PO DAILY loperamide 2 mg capsule 2 mg PO Q8H PRN prazosin 5 mg capsule 5 mg PO BEDTIME hydroxyzine pamoate 25 mg capsule 25 mg PO Q6H PRN (Reason: anxiety) olanzapine 15 mg tablet 15 mg PO BEDTIME cyclobenzaprine 10 mg tablet 10 mg PO TID cetirizine 10 mg tablet 10 mg PO DAILY PRN (Reason: congestion) fluoxetine 10 mg capsule 10 mg PO DAILY divalproex 500 mg tablet extended release 24 hr 500 mg PO DAILY olanzapine 7.5 mg tablet 7.5 mg PO QAM gabapentin 600 mg tablet 600 mg PO TID famotidine 40 mg tablet 40 mg PO BEDTIME Qty: 90 3RF Interventions: ED Discharge Assessment Last Done: 10/29/22 21:15 Discharge Date/Time: 10/29/22 21:15 Print Language: [place] Verdean
[2022-10-29 18:17] VITALS: BP 106/64; PULSE 85; RESP 18; TEMP 36.7; O2SAT 100; BMI 25.8
[2022-10-29] MEDS: LORazepam 1 MG TABLET PO (18:31)
--- NOTE | 2022-10-29 18:50 | PC.NURSE ---
pt at bedside,woke pt from sleeping, pt became tearful upon arrival
--- NOTE | 2022-10-29 19:18 | ECG_ITS ---
Test Reason : anxeity Blood Pressure : / mmHG Vent. Rate : 061 BPM Atrial Rate : 061 BPM P-R Int : 128 ms QRS Dur : 074 ms QT Int : 410 ms P-R-T Axes : 051 005 020 degrees QTc Int : 412 ms Normal sinus rhythm Normal ECG When compared with ECG of 28-MAY-2020 15:59, Vent. rate has decreased BY 31 BPM Nonspecific T wave abnormality no longer evident in Lateral leads QT has lengthened Referred By: Yogesh Acevedo Electronically Signed By:SHAR CAROLINA
[2022-10-29 19:40] LABS: MANUAL DIFF FLAG NO
[2022-10-29 19:53] LABS: INTERNATIONAL NORM RATIO 0.9 (0.9-1.1); Prothrombin Time 10.5 SEC (11.1-13.3)
[2022-10-29 19:55] LABS: Basophils Percent Auto 0.4 % (0-2); Eosinophils Absolute Auto 0.1 X10*3/uL (0.0-0.4); Eosinophils Percent Auto 0.7 % (0-4); Hematocrit 36.1 % (37.0-47.0); Hemoglobin 12.3 g/dl (12.0-16.0); Imm Gran Abs Auto 0.02 X10*3/uL (0.00-0.03); Imm Gran Pct Auto 0.2 % (0.0-0.4); Lymphocytes Absolute Auto 2.5 X10*3/uL (1.2-4.9); Mean Corpuscular HGB Conc 34.1 g/dl (31.0-35.0); Mean Corpuscular Hemoglobin 29.1 pg (27.0-33.0); Mean Corpuscular Volume 85.3 fL (80.0-98.0); Mean Platelet Volume 9.6 fL (9.4-12.3); Monocytes Absolute Auto 0.6 X10*3/uL (0.1-1.2); Monocytes Percent Auto 7.4 % (2-11); Neutrophils Absolute Auto 4.9 x10*3/uL (2.0-8.3); Neutrophils Percent Auto 60.3 % (45-73); Platelet Count 362 X10*3/uL (160-400); Red Blood Count 4.23 X10*6/uL (4.20-5.50); Red Cell Distribution Width 11.9 % (11.0-16.0); White Blood Count 8.2 X10*3/uL (4.8-10.8)
[2022-10-29 19:56] LABS: Partial Thromboplastin Time 27.7 SEC (26.0-36.4)
[2022-10-29 19:59] LABS: Alanine Aminotransferase 14 U/L (0-31); Albumin Level 3.5 g/dL (3.5-5.0); Alkaline Phosphatase 66 U/L (39-117); Anion Gap 12 (12-20); Aspartate Amino Transferase 16 U/L (5-31); Bilirubin Total 0.4 mg/dL (0.0-1.0); Blood Urea Nitrogen 9 mg/dL (9-16); Calcium 8.6 mg/dL (8.4-10.2); Carbon Dioxide 21 mmol/L (22-29); Chloride 107 mmol/L (96-108); Creatinine Clr Calc Pharmacy 89.9; Estimated Glomerular Filt Rate > 60; Glucose Random 100 mg/dL (60-115); Potassium 3.5 mmol/L (3.3-5.1); Sodium 136 mmol/L (135-145); Total Protein 6.7 g/dL (6.5-8.0)
[2022-10-29 20:05] LABS: B Type Natriuretic Peptide 28 pg/mL (<100)
[2022-10-29 20:12] LABS: Troponin-I High Sensitivity < 2.7 ng/L (<3.5-17.0)
== END 2022-10-29 21:15 | disposition home or self-care (01) ==
PROVIDERS: Physician Assistant; Emergency Provider Internal Medicine; PCP Internal Medicine
DX: R07.89 Other chest pain (principal); F41.1 Generalized anxiety disorder; F43.0 Acute stress reaction; R06.02 Shortness of breath; Z79.899 Other long term (current) drug therapy
CPT/HCPCS: 36415; 71045; 80053; 83880; 84484; 85025; 85610; 85730; 93005; 99283

== ENCOUNTER 2022-11-08 17:00 | Outpatient (RCR) | payer MEDICAID, SELFPAY ==
--- NOTE | 2022-10-24 16:52 | MHC.PT.EP ---
[facility] [place] Office [place] [facility] [place] [facility] [address] Lai Hendrickson [address] [phone] F: [phone] F: [phone] F: [phone] F: [phone] Physical Therapy Plan of Care Date of Evaluation: 10/24/22 Date of Surgery: Diagnosis: Assessment: Patient is a 47 y.o. female who is referred to PT by Dr. Delta Stewart MD with Dx of LEFT shoulder RTC tear, painful arc syndrome. PT diagnosis is LEFT cervical radiculopathy, LEFT subacromial impingement syndrome, and LEFT shoulder adhesive capsulitis. Patient impairments include poor posture, pain, LEFT UE radicular sxs, limited ROM in cervical spine and LEFT shoulder, weakness in L UE. Patient current functional limitations are cannot lift anything heavy, cannot lift arm overhead, difficulty putting on bra, reaching behind back, lying on involved side, turning to look when driving. Patient will benefit from skilled PT to address aforementioned impairments and functional limitations to meet established goals. Frequency and Duration: The patient will be seen 2x/week for 4 weeks Short Term Goals: 2 weeks Patient demonstrates consistency and independence with HEP to self manage symptoms. Patient is able to begin to centralize L UE symptoms with treatment. Detention Goals: 4 weeks Patient presents with increased cervical rotation 65 degrees bilaterally to look over shoulders when driving. 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 Treatment Plan: Modalities to reduce pain, spasms and effusion. Manual therapy to restore motion and function. Therapeutic exercise to improve strength and flexibility. Neuromuscular re-education for posture and balance. Therapeutic activities to return to functional activities of daily living. Electronically signed by: Nilay Hopkins, PT, DPT Please sign and return to therapist. Thank you for your referral.
--- NOTE | 2022-12-12 13:48 | MHC.PT.DC ---
[facility] [place] Office [place] Office [place] Office [address] Lai Hendrickson [address] [phone] F: [phone] F: [phone] F: [phone] F: [phone] Physical Therapy Discharge Report Diagnosis: LEFT shoulder RTC tear, painful arc syndrome (MD Dx) LEFT cervical radiculopathy, LEFT subacromial impingement syndrome, and LEFT shoulder adhesive capsulitis (PT Dx) Date of Surgery: Date of Evaluation: 10/24/22 Date of Discharge: 12/12/22 Treatments to Date: 2 Cancellations to Date: No Shows to Date: Discharge Status: Recommend MD Follow-up Visit Non-compliance Discharge Summary: Patient only attended 2 PT sessions. On FUP session her assessment reads, Pt session cut short 2* to patient feeling anxiety attack coming on. Pt brought to ER by W/C and called by phone and notified by of where she was going. Patient did not attend any FUP appointments after this visit. She is discharged from PT at this time. Electronically signed by: Nilay Hopkins, PT, DPT Please sign and return to therapist. Thank you for your referral.
== END 2022-12-12 13:49 | disposition home or self-care (01) ==
LOC: HO.PT 17:00
PROVIDERS: PCP Internal Medicine; Visit Provider Internal Medicine
DX: M75.102 Unspecified rotator cuff tear or rupture of left shoulder, not specified as traumatic (principal)
CPT/HCPCS: 97110; 97161

== ENCOUNTER 2022-12-10 13:36 | Outpatient (AMB) | payer MEDICAID, SELFPAY ==
--- NOTE | 2022-12-10 13:54 | MHC.OFFVIS ---
Intake Vital Signs 12/10/22 13:56 Height 5 ft 6 in Weight 158 lb BMI 25.5 Blood Pressure Location Lt brachial Position Sitting Respiration 12 Pulse Source Pulse Oximeter Intake Visit Reasons: 2 month follow up /confirmed Allergies No Known Allergies [No Known Allergies*] Allergy (Verified 12/10/22 13:57) Medication List - Last Reconciled 12/10/22 by Latonya Kincaid LPN acetaminophen 1,000 mg PO Q8H PRN cetirizine 10 mg PO DAILY PRN cyclobenzaprine 10 mg PO TID divalproex ER 500 mg PO DAILY ergocalciferol (vitamin D2) 1,250 mcg PO QWEEK famotidine 40 mg PO BEDTIME fluoxetine 10 mg PO DAILY fluticasone propionate 50 mcg/actuation 2 sprays intranasal DAILY gabapentin 600 mg PO TID hydroxyzine pamoate 25 mg PO Q6H PRN loperamide 2 mg PO Q8H PRN olanzapine 15 mg PO BEDTIME olanzapine 7.5 mg PO QAM omeprazole 40 mg PO DAILY ondansetron 4 mg PO Q8H PRN polyethylene glycol 3350 (Miralax) 238 grams PO ONCE 1 day prazosin 5 mg PO BEDTIME trazodone 150 mg PO DAILY HPI 2 month follow up /confirmed HPI Details 47-year-old female who presents today to the office for a two-month follow up. She reports pain in the bilateral shoulder but states that the left is worse than the right. She visited physical therapy and had a panic attack. She discontinued going to physical therapy since. She reports limited ROM with lifting her arm and putting her arm behind her due to pain. She had a cortisone injection in the past from Mag Hopson PA-C, which provided relief for one week, but then the pain returned to baseline. Past procedure: 09/17/22: Left subacromial bursa injections under ultrasound guidance: Limited relief. 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 Alert and oriented. Mood and affect appropriate. Follows and participates in conversation appropriately. Respiratory effort is unlabored. Able to transition from sit to stand unassisted. Ambulates with bilaterally normal heel strike and toe off. Results Reviewed Results Reviewed: No imaging is available for review. Assessment & Plan Assessment & Plan (1) Left shoulder pain: Code(s): M25.512 - Pain in left shoulder Plan Persistent shoulder pain despite multiple steroid injections so far. Will schedule her for a temporary left suprascapular nerve stimulator placement. Discussed the risks and benefits of the procedure with the patient in detail. All questions were answered. The patient is on board with the plan. Justification for interventional therapy: ? Patient with average pain > 6/10 ? Patient has exhausted conservative therapy ? Patient unable to tolerate physical therapy due to pain Scribed for Dr. Stewart by Nick Hunt, medical case worker, on 12/10/2022. I, Dr. Stewart, have personally reviewed and agree with the information entered by the scribe. Coding Level of Care Code Est Pt Level 3 (97477) Diagnoses Left shoulder pain M25.512
[2022-12-10 13:56] VITALS: RESP 12; BMI 25.5
== END 2022-12-10 14:29 | disposition home or self-care (01) ==
PROVIDERS: PCP Internal Medicine; Visit Provider Internal Medicine
DX: M25.512 Pain in left shoulder (principal)
CPT/HCPCS: 99213

== ENCOUNTER → 2022-12-10 13:36 | Outpatient (BNVA) | payer MEDICAID, SELFPAY | PROVIDERS: PCP Internal Medicine; Visit Provider Internal Medicine | DX: M25.512 Pain in left shoulder (principal) | CPT/HCPCS: 99212 ==

== ENCOUNTER 2022-12-25 12:45 | Outpatient (AMB) | payer MEDICAID, SELFPAY ==
--- NOTE | 2022-12-25 12:47 | MHC.OFFVIS ---
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 Intake Note: NPV Conservation Agent Required: Yes Conservation Agent Language: Fruit Picker Name: [email or web address] [id number] Accompanied by: Self / Same As Patient Allergies No Known Allergies [No Known Allergies*] Allergy (Verified 12/25/22 12:49) Medication List - Last Reconciled 12/25/22 by Hugo Nayak MD acetaminophen 1,000 mg PO Q8H PRN cetirizine 10 mg PO DAILY PRN cyclobenzaprine 10 mg PO TID divalproex ER 500 mg PO DAILY ergocalciferol (vitamin D2) 1,250 mcg PO QWEEK famotidine 40 mg PO BEDTIME fluoxetine 10 mg PO DAILY fluticasone propionate 50 mcg/actuation 2 sprays intranasal DAILY gabapentin 600 mg PO TID hydroxyzine pamoate 25 mg PO Q6H PRN loperamide 2 mg PO Q8H PRN olanzapine 15 mg PO BEDTIME olanzapine 7.5 mg PO QAM omeprazole 40 mg PO DAILY ondansetron 4 mg PO Q8H PRN polyethylene glycol 3350 (Miralax) 238 grams PO ONCE 1 day prazosin 5 mg PO BEDTIME trazodone 150 mg PO DAILY HPI HPI Comments History of Present Illness Details Patient is here for consultation regarding chest pains. No history of any cardiovascular issues including coronary artery disease or myocardial infarction or cardiomyopathy. She states she has been having chest pains that radiate down the left arm. Generally happen when she is very anxious. When I questioned her about exertion, she states she does not do much because of fibromyalgia. Apparently whenever she is too active she is on lot of pain and hence fairly sedentary. Not listed to be a diabetic or hypertensive. 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 Review of Systems Const All systems reviewed & are unremarkable except as noted in HPI and below Reports as per HPI and Reports no additional complaints Eyes Reports as per HPI and Denies no additional complaints ENT Denies no additional complaints and Reports as per HPI Card Reports as per HPI, Reports no additional complaints, Denies acrocyanosis, Reports chest pain, Denies leg edema, Denies lightheadedness, Denies palpitations and Denies dyspnea Resp Reports as per HPI, Denies no additional complaints and Denies dyspnea GI Reports as per HPI and Denies no additional complaints Reports as per HPI Musc Reports no additional complaints and Reports as per HPI Skin/Breast Reports system reviewed and no additional complaints, except as documented Neuro Reports no additional complaints and Reports as per HPI Psych Reports no additional complaints and Reports as per HPI Endo Reports no additional complaints, Reports as per HPI and Denies palpitations Isaac/Lymph Reports no additional complaints and Reports as per HPI Aller/Immun Reports no additional complaints and Reports as per HPI Physical Exam Vital Signs: Last Vital Signs Pulse 79 12/25/22 12:48 BP 100/60 12/25/22 12:48 BMI result Body Mass Index 25.8 Const General: comfortable and no acute distress Orientation/consciousness: patient oriented x3 HEENT Other: Unremarkable Head: Yes normal to inspection Neck Neck: Yes normal visual inspection Chest Chest palpation & inspection: normal inspection of the chest Resp Auscultation: clear to auscultation bilaterally Cardio Palpation: normal PMI Heart sounds: S1 normal heart sound present, S2 normal heart sound present, no gallops, no murmurs and no rubs GI Palpation (GI): Soft to palpation Back/Spine/Pelvis Other: unremarkable Skin General skin exam: no rashes or lesions noted Neuro General: patient oriented x3 Extrem General: Yes normal to inspection Psych Mental Status: mental status grossly normal Assessment & Plan Assessment & Plan (1) Precordial chest pain: Code(s): R07.2 - Precordial pain Plan EKG with sinus rhythm at 61/Min; no significant ST-T changes; normal VT and corrected QT. Symptoms are somewhat atypical. We can start with an echocardiogram and an exercise stress test. Based on the findings, we can plan further care. Orders: Orders CA echo transthoracic complete Today I25.10 - Atherosclerotic heart disease of [place] coronary artery without angina pectoris, R07.2 - Precordial pain CA stress test Today R07.2 - Precordial pain Coding Level of Care Code New Pt Level 3 (95467) Diagnoses Precordial chest pain R07.2
[2022-12-25 12:48] VITALS: BP 100/60; PULSE 79; BMI 25.8
== END 2022-12-25 13:06 | disposition home or self-care (01) ==
PROVIDERS: PCP Internal Medicine; Visit Provider Internal Medicine
DX: R07.2 Precordial pain (principal)
CPT/HCPCS: 99203

== ENCOUNTER → 2022-12-25 12:45 | Outpatient (BNVA) | payer MEDICAID, SELFPAY | PROVIDERS: PCP Internal Medicine; Visit Provider Internal Medicine | DX: R07.2 Precordial pain (principal) | CPT/HCPCS: 99202 ==

== ENCOUNTER → 2023-01-22 08:53 | Outpatient (REF) | payer MEDICAID, SELFPAY ==
--- NOTE | 2023-01-22 08:56 | CA_ITS ---
Acquisition Time: 2023-01-22 09:50:33 Total Exercise Time: 00:05:58 Test Indications: CP Medications: SEE H Protocol: BRENNAN Max HR: 141 BPM 81% of Pred: 172 BPM Max BP: 160/082 mmHG Max Work Load: 7.0 METS Exercise stress test exercise 5 min 58 sec of Brennan protocol achieving 81% MPHR, with moderate SOB, no chest discomfort, without arrhythmias, with normotensive response to exercise, without EKG changes. Test reviewed with Dr. Negrete. Referred By: Hugo Nayak Overread By: Zohreh Villa
--- NOTE | 2023-01-22 08:56 | CA_ITS ---
Transthoracic Echocardiogram Patient (Last, First, Middle): Loraine Russ, Gender: Female Date of : 1975 Age: 47 Procedure Date: 01/22/2023 Procedure Type: Transthoracic Echocardiogram Location: OP Height: 167.64 cm Weight: 69.4 kg BSA: 1.78 m2 Heart Rate: 54 bpm BP: 120 / 75 mmHg Voltage Regulator Assembler: SINDY Referring MD: Hugo Nayak MD Symptoms: I25.10 - Atherosclerotic heart disease of [place] coronary artery without... Study Quality: Fair ECG Rhythm: Bradycardia Conclusions: - The left ventricular systolic function is normal. The calculated ejection fraction is 69% by biplane method. - No obvious valvular pathology seen on this study. Findings Left Ventricle Normal left ventricular cavity size. There is normal left ventricular wall thickness. The left ventricular systolic function is normal. The calculated ejection fraction is 69% by biplane method. There is no evidence of regional wall motion abnormalities. Diastolic function is normal for age. LV peak GLS -20.7%. Right Ventricle Normal right ventricular cavity size and systolic function. Atria Both atria are normal in size. Aortic Valve There is a normal trileaflet aortic valve. There is no aortic valve stenosis. There is no aortic valve regurgitation. Mitral Valve The mitral valve appears normal. There is trace mitral valve regurgitation. There is no mitral valve stenosis. Pulmonic Valve The pulmonic valve is likely normal. Tricuspid Valve Normal tricuspid valve structure. There is trace tricuspid valve regurgitation. There is no evidence of pulmonary hypertension. Great Vessels The asc aorta is normal in size. Venous The inferior vena cava is normal in size and collapses greater than 50% with inspiration. Pericardium/Pleural There is no evidence of pericardial effusion. Prior Study Comparison No prior study available for comparison. Recommendations, Care & Conclusions No obvious valvular pathology seen on this study. Measurements 2D Linear Measurements IVSd: 0.86 0.6-0.9/0.6-1.0 cm LVIDd: 4.41 3.9-5.3/4.2-5.9 cm LVIDd Index: 2.48 2.4-3.2/2.2-3.1 cm/m2 LVIDs: 2.53 2.0-3.6 cm LVPWd: 0.87 0.7-1.1 cm LA Diam: 2.90 2.7-3.8/3.0-4.0 cm LAIDs Index: 1.63 1.5-2.3 cm/m2 LV Mass: 151.77 67-162/88-224 g LV Mass Index: 85.27 43-95/49-115 g/m2 LVOT Diam: 1.90 3.0+(-)1.3 cm 2D Systolic Function EF 4C: 72.00 >55% EF 2C: 65.20 >55% EF BiP: 68.60 >55% Mitral Valve MV Pk E: 0.88 MV PK A: 0.60 MV Decel Time: 177.00 E/A: 1.50 E'Lateral: 13.70 E'Medial: 12.70 E/E' Med: 6.90 E/E' Lat: 6.40 PHT: 52.00 MVA PHT: 4.23 Decel Camp: 4.96 Aortic Valve AoV Pk Winston: 1.26 AoV Mn Winston: 0.85 AoV VTI: 0.29 AoV Pk Grad: 6.00 Aov Mn Grad: 3.00 LISETTE Cont.VTI: 2.34 LVOT LVOT Pk Winston: 1.03 LVOT Mn Winston: 0.73 LVOT VTI: 0.24 LVOT Pk Grad: 4.00 LVOT Mn Grad: 2.00 LVOT Diam: 1.90 LVOT Area: 2.84 Diastolic Function MV Pk E: 0.88 MV Pk A: 0.60 E/A: 1.50 E'Medial: 12.70 E/E' Med: 6.90 E' Laterial: 13.70 E/E' Lat: 6.40 Right Ventricle TAPSE (mm): 23.80 TVS' Winston: 12.70 Tricuspid Valve TR Pk Winston: 1.86 TR Pk Grad: 14.00 RA Press: 3.00 RVSP: 17.00 Great Vessels Aorta Sinus of Valsalva: 3.20 2.0-3.5 cm Ao Asc: 3.10 2.1-3.4 cm Pulmonary Valve PV Pk Winston: 0.84 Peak PV Grad: 3.00 Updated in Other Vendor System with Status of Final Hugo Nayak MD electronically signed on 01/23/2023 2:29:33 PM with status of Final
== END ==
LOC: HO.CARD 08:53
PROVIDERS: PCP Internal Medicine; Visit Provider Internal Medicine
DX: R07.2 Precordial pain (principal); I25.10 Atherosclerotic heart disease of native coronary artery without angina pectoris
CPT/HCPCS: 93017; 93306; 93356

== ENCOUNTER → 2023-01-22 08:56 | Outpatient (BNV) | payer MEDICAID, SELFPAY | PROVIDERS: PCP Internal Medicine; Visit Provider Nurse Practitioner | DX: I25.10 Atherosclerotic heart disease of native coronary artery without angina pectoris (principal) | CPT/HCPCS: 93016; 93018; 93306 ==

== ENCOUNTER 2023-03-19 18:54 | Outpatient (REF) | payer MEDICAID, SELFPAY | END 2023-03-19 18:55 | disposition home or self-care (01) | LOC: HO.HHCLNP 18:54 | PROVIDERS: Visit Provider Internal Medicine | DX: R05.9 Cough, unspecified (principal) | CPT/HCPCS: 87070 ==

== ENCOUNTER 2023-04-04 06:11 | Outpatient (REF) | payer MEDICAID, SELFPAY | END 2023-04-04 06:12 | disposition home or self-care (01) | LOC: CF 06:11 | PROVIDERS: Visit Provider Internal Medicine | DX: M25.512 Pain in left shoulder (principal) | CPT/HCPCS: 64555; C1778 ==

== ENCOUNTER 2023-04-04 10:52 | Outpatient (AMB) | payer MEDICAID, SELFPAY ==
--- NOTE | 2023-04-04 11:21 | A.OFFVIS_ITS ---
Intake Vital Signs 04/04/23 12:03 04/04/23 12:03 Height 5 ft 6 in Weight 160 lb BMI 25.8 BP 136/80 128/82 Blood Pressure Location Lt brachial Rt brachial Position Sitting Sitting Respiration 16 18 Pulse 64 76 Pulse Source Pulse Oximeter Pulse Oximeter Pulse Oximetry (%) 100 99 Oxygen Delivery Method Room Air Room Air Comment Pre-Op Post-Op Intake Visit Reasons: Left suprascapular Sprint Tube Bender Hand Required: Yes Tube Bender Hand Name: Jass # [id number] Allergies No Known Allergies [No Known Allergies*] Allergy (Verified 12/25/22 12:49) HPI Left suprascapular Sprint HPI Details Patient presents for scheduled procedure. Denies any recent cough, cold, infection, fever or other significant changes in medical history since last office visit. 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 After the risks, benefits and alternatives were discussed with the patient and informed consent was obtained, patient was placed in the sitting position and padded to foster comfort. Appropriate skin and bony landmarks were identified using ultrasound, including the left suprascapular notch. The skin overlying the needle entry site was prepped and draped in sterile fashion. After identifying and marking the intended target along the course of the suprascapular nerve, the skin around the planned entry point and the subcutaneous tissues were injected with local anesthetic. An introducer needle and stimulating probe were assembled, inserted and advanced along the intended course of the suprascapular nerve, taking care to maintain the proper depth of insertion as the introducer was advanced under ultrasound guidance. Bony contact was achieved with the scapula and maintained throughout. The introducer needle was delivered to a location in proximity to the nerve. Multiple stimulation parameters were used to deliver stimulation to the suprascapular nerve in concert with stimulating at multiple positions around the nerve. Nerve target acquisition was confirmed noting generation of sensory and mild motor effects (paresthesia, muscle tension, etc) in the shoulder and proximal arm; corresponding to the distribution of the suprascapular nerve. Various electrical parameter combinations were tested, and the lead location was adjusted (physically relocated under image guidance) until the patient indicated shoulder paresthesia and tension overlapping the distribution of the patient?s typical region of pain. The stimulating probe was removed from the introducer and a percutaneous lead was guided through the needle and delivered to a location in similar proximity to the nerve. Final location was verified with electrical stimulation and documented. The introducer needle was removed, and the exposed end of the percutaneous lead was attached to an external stimulator unit. Various electrical parameter combinations were again tested until the patient indicated paresthesia and muscle tension overlapping the distribution of the patient?s typical region of pain. After confirming that lead impedance was in the normal range, the external unit was detached, the needle was removed, and the lead was anchored at the skin. The needle entry site was occluded with dermabond. The lead was threaded into the connector block and electrical continuity and desired patient response was confirmed. The connector block was attached to the external stimulator unit. The site was covered with a sterile occlusive dressing.? A final image was taken to document final placement. The patient was observed for stability of vital signs and comfort. Sprint PNS Device: Sprint PNS Device [id number] Percutaneous Peripheral Neuroelectrode Procedure: 41834 - Percutaneous Peripheral Neuroelectrode Procedure code (CPT) selection complete Office Meds lidocaine (PF) 50 mg/5 mL (1 %) injection syringe Performing Provider: Gabrielle Bird APRN, BLAISE Performing Location: [facility] Administered by: Latonya Kincaid LPN on 04/04/23 11:21 Dose Route Admin Location Dispensed Lot Number Expiration Date NDC [employer] 5 mL subcut 5 mL Assessment & Plan Assessment & Plan (1) Left shoulder pain: Code(s): M25.512 - Pain in left shoulder Plan Patient is status post temporary left suprascapular nerve stimulator placement. Patient tolerated procedure well and was discharged home in stable condition with discharge instructions. All questions were answered. We will follow-up via telephone or in clinic to assess response to therapy. A follow-up appointment was made during today's visit. Orders: Orders AMB Sprint PNS Today M25.512 - Pain in left shoulder Coding Level of Care Code Procedure Only Diagnoses Left shoulder pain M25.512 CPT Codes Sprint PNS - Sprint PNS Device: Sprint PNS Device ([id number]) Sprint PNS - SPRINT: 52490 - Percutaneous Peripheral Neuroelectrode ([id number]) Implantable Device Implantable Device Implantable Devices Qty [employer] Implant Date Expiration Date Analgesic PENS system 1 [employer] 04/04/23 07/10/24
[2023-04-04 12:03] VITALS: BP 128/82; BP 136/80; PULSE 64; PULSE 76; RESP 16; RESP 18; O2SAT 100; O2SAT 99; BMI 25.8
== END 2023-04-04 11:44 | disposition home or self-care (01) ==
LOC: HO.PMCPRC 10:52
PROVIDERS: PCP Internal Medicine; Visit Provider Internal Medicine
DX: M25.512 Pain in left shoulder (principal)
CPT/HCPCS: 64555

== ENCOUNTER 2023-04-08 10:44 | Outpatient (AMB) | payer MEDICAID, SELFPAY ==
--- NOTE | 2023-04-08 10:45 | A.OFFVIS_ITS ---
Intake Vital Signs 04/08/23 10:46 Height 5 ft 6 in Weight 160 lb BMI 25.8 BP 110/55 L Blood Pressure Location Lt brachial Position Sitting Respiration 12 Pulse 73 Pulse Source Pulse Oximeter Pulse Oximetry (%) 100 Oxygen Delivery Method Room Air Intake Visit Reasons: s/p left suprascapular Sprint Form Coverer Required: Yes Form Coverer Name: Inez Allergies No Known Allergies [No Known Allergies*] Allergy (Verified 04/08/23 10:47) Medication List - Last Reconciled 04/08/23 by Latonya Kincaid LPN acetaminophen 1,000 mg PO Q8H PRN cetirizine 10 mg PO DAILY PRN cyclobenzaprine 10 mg PO TID divalproex ER 500 mg PO DAILY ergocalciferol (vitamin D2) 1,250 mcg PO QWEEK famotidine 40 mg PO BEDTIME fluoxetine 10 mg PO DAILY fluticasone propionate 50 mcg/actuation 2 sprays intranasal DAILY gabapentin 600 mg PO TID hydroxyzine pamoate 25 mg PO Q6H PRN loperamide 2 mg PO Q8H PRN olanzapine 15 mg PO BEDTIME olanzapine 7.5 mg PO QAM omeprazole 40 mg PO DAILY ondansetron 4 mg PO Q8H PRN polyethylene glycol 3350 (Miralax) 238 grams PO ONCE 1 day prazosin 5 mg PO BEDTIME trazodone 150 mg PO DAILY HPI s/p left suprascapular Sprint HPI Details 47-year-old female who presents today to the office for a status post left suprascapular sprint. A certified manufacturing shift supervisor was present during the visit. The patient reports no significant relief yet following the procedure. She reports having pain with movements. She is still trying to move around the house, even with the pain. She has been using the device setting of 20, which was increased to 32 today in the office, and she tolerated it well. She endorses appropriate paresthesia sensations from the device. Past procedures: 04/04/23: Peripheral Nerve Stimulation T emporary Lead Placement, Ultrasound- Guided, Suprascapular Nerve, Left: No initial relief. 09/17/22: Left subacromial bursa injectio ns under ultrasound guidance: Limited relief. 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 Alert and oriented. Mood and affect appropriate. Follows and participates in conversation appropriately. Respiratory effort is unlabored. Able to transition from sit to stand unassisted. Ambulates with bilaterally normal heel strike and toe off. Lead insertion site is clean dry and intact. Results Reviewed Results Reviewed: No imaging is available for review. Assessment & Plan Assessment & Plan (1) Left shoulder pain: Code(s): M25.512 - Pain in left shoulder Plan I optimized the patient?s stimulation settings until she reported paresthesia in the left shoulder and educated her on appropriate usage of the device. The patient will continue the stimulation therapy for next seven weeks. The patient will follow up in seven weeks for removal of the device. Scribed for Dr. Stewart by Nick Hunt, medical detail representative, on 04/08/2023. I, Dr. Stewart, have personally reviewed and agree with the information entered by the scribe. Coding Level of Care Code Est Pt Level 3 (12111) Diagnoses Left shoulder pain M25.512
[2023-04-08 10:46] VITALS: BP 110/55; PULSE 73; RESP 12; O2SAT 100; BMI 25.8
== END 2023-04-08 11:13 | disposition home or self-care (01) ==
PROVIDERS: PCP Internal Medicine; Visit Provider Internal Medicine
DX: M25.512 Pain in left shoulder (principal)
CPT/HCPCS: 99024

== ENCOUNTER → 2023-04-08 10:44 | Outpatient (BNVA) | payer MEDICAID, SELFPAY | PROVIDERS: PCP Internal Medicine; Visit Provider Internal Medicine | DX: M25.512 Pain in left shoulder (principal) | CPT/HCPCS: 99212 ==

== ENCOUNTER 2023-04-16 13:29 | Outpatient (REF) | payer MEDICAID, SELFPAY | END 2023-04-16 13:30 | disposition home or self-care (01) | LOC: HO.HHCLNP 13:29 | PROVIDERS: Visit Provider Internal Medicine | DX: R39.9 Unspecified symptoms and signs involving the genitourinary system (principal) | CPT/HCPCS: 87086 ==

== ENCOUNTER 2023-05-10 | Outpatient (REF) | payer MEDICAID, SELFPAY | END 2023-05-10 00:01 | disposition home or self-care (01) | LOC: CF | PROVIDERS: PCP Internal Medicine; Visit Provider Nurse Practitioner Family | DX: K21.00 Gastro-esophageal reflux disease with esophagitis, without bleeding (principal); K52.9 Noninfective gastroenteritis and colitis, unspecified; Z98.890 Other specified postprocedural states | CPT/HCPCS: 99212 ==

== ENCOUNTER 2023-05-10 08:31 | Outpatient (AMB) | payer MEDICAID, SELFPAY ==
--- NOTE | 2023-05-10 08:39 | A.OFFVIS_ITS ---
Intake Vital Signs 05/10/23 08:46 Height 5 ft 6 in Weight 155 lb BMI 25.0 BP 105/55 L Blood Pressure Location Lt brachial Position Sitting Pulse 72 Intake Visit Reasons: follow up gerd PT N/S last 4 times Intake Note: Patient follow up for GERD. Patient cc: abdominal pain on and off, diarrhea, and acid reflex with burning sensation. Bacteriologist Fishery Required: No Accompanied by: Self / Same As Patient Allergies No Known Allergies [No Known Allergies*] Allergy (Verified 05/10/23 08:38) HPI follow up gerd PT N/S last 4 times HPI Details LAST VISIT: GERD (gastroesophageal reflux disease) Patient reports that her symptoms of acid reflux are being suppressed with omeprazole. Discussed with patient avoiding dietary triggers and late night snacking. Staying upright for minimal 3 hours after meals discussed with patient. IBS (irritable bowel syndrome) Low FODMAP diet discussed with patient. Patient continues to have loose stools. Patient was unable to tolerate cholestyramine will try fiber therapy to help bulk her stools Diarrhea Patient has loose stools in the morning. History of cholecystectomy patient is aware that she will have those symptoms. Will try to bulk her stools with fiber supplement. Patient was unable to take cholestyramine. Patient denies any abdominal pain or discomfort. I will see her in 6 weeks, sooner on as needed basis. Patient is agreeable to this plan and verbalizes understanding of instructions. She was given the opportunity to ask questions and all questions answered. ? Thank you for allowing me to participate in her care Plan Medications New methylcellulose (laxative) (Citrucel) take it with full glass of water 500 mg PO DAILY 90 tabs 2RF K59.00 - Constipation, unspecified Discontinued cholestyramine-aspartame 4 gram no meds 1 hr before/4-6 hr after dose Discontinued Reason: Patient no longer taking 4 grams PO QIDACHS 239.4 grams 2RF UPPER ENDOSCOPY AND COLONOSCOPY Findings: Larynx:normal Esophagus: GE junction at 38 cm, diaphragm hiatus at 38 cm, congestion and erythema with bogginess at GEJ, bx taken as well as from proximal and distal esophagus, schatzki ring noted Stomach: Patchy erythema noted. Biopsies were obtained. Grade 2 flap valve on retroflexed examination of the cardia. Duodenum: Normal bulb and descending duodenum, bx taken Intervention: Biopsies as noted above Findings: Terminal Ileum-normal, bx taken Random colon bx taken Cecum:normal Ascending Colon: normal Transverse Colon -normal Descending Colon:normal Sigmoid Colon: normal Rectum: Retroflexion with small internal hemorrhoids, grade I Anorectum - normal Colon preparation: [place] Bowel Preparation Scale Right colon; 2 Transverse colon:1- 2 Left colon; 1-2 (0 = Unprepared colon segment with mucos a not seen due to solid stool that cannot be cleared. 1 = Portion of mucosa of the colon segme nt seen, but other areas of the colon segment not well seen due to staining, residual stool and/or opaque liquid. 2 = Minor amount of residual staining, s mall fragments of stool and/or opaque liquid, but mucosa of colon segment seen well. 3 = Entire mucosa of colon segment seen well with no residual staining, small fragments of stool or opaque liquid) Impression and Post Procedure Diagnosis: Endoscopy Findings: esophagitis gastritis schatzki ring Colonoscopy Findings: internal hemorrhoids Plan: Await Pathology results Repeat Colonoscopy in 5 years due to fair prep or earlier if clinically indicated High fiber diet leaflet avoid straining at stool, epsom salts and sitz bath, anusol supps or cream GERD precautions, confirm if taking PPI PATHOLOGY RESULTS Diagnosis A. Duodenum, biopsy: Duodenal mucosa with predominantly preserved villi and no specific change. B. Stomach, biopsy: Gastric antral and body mucosa with focal minimal chronic inactive inflammation; negative for H pylori, intestinal metaplasia and dysplasia. C. Gastroesophageal junction, biopsy: Squamocolumnar mucosa with hyperplasia and mild chronic active inflammation; negative for intestinal metaplasia and dysplasia. D. Esophagus, distal, biopsy: Squamous mucosa with congestion, otherwise no specific change; no columnar mucosa present. E. Esophagus, proximal, biopsy: Squamous mucosa with no specific change; no columnar mucosa present. F. Terminal ileum, biopsy: Ileal mucosa with no specific change. G. Colon, random, biopsy: Colonic mucosa with focal lamina propria hemorrhage and no specific change; no evidence of microscopic colitis TODAY'S VISIT: Patient is here today for follow-up and to discuss colonoscopy results. Patient had suboptimal prep in the left side of her colon and will be colonoscopy in 5 years. No polyps found. Upper endoscopy showed mild esophagitis, Schatzki ring, gastritis. Patient is taking omeprazole in the morning and her symptoms of acid reflux are suppressed for the most part. Patient states that sometimes she has to take a 2nd dose of omeprazole as symptoms sometimes were after dinner. Patient lost almost 25 lb since last visit. Continues to have postprandial loose stools, history of cholecystectomy. Patient reports occasional postprandial abdominal bloating. Denies any abdominal pain or discomfort. Occasional dyspepsia without dysphagia or odynophagia. Patient try cholestyramine in the past, however reports that her symptoms were getting worse and she had epigastric pain when taking it [facility] Medical History Anxiety Fibromyalgia Depression No known health problems Surgical History History of breast surgery History of cholecystectomy H/O tubal ligation Hx of colonoscopy Family History Mother HTN (hypertension) Sister HTN (hypertension) Father Cancer Social History Household Members: Spouse and Children Alcohol intake: never Patient Tobacco Use Status: Never used Tobacco Current occupational status: unemployed 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 Review of Systems Const Denies weight gain and Denies weight loss ENT Reports no additional complaints, Denies dysphagia and Denies odynophagia Card Reports no additional complaints Resp Reports no additional complaints GI Denies abdominal pain, Denies belching, Denies melena, Denies bloating, Denies change in bowel habits, Denies dysphagia, Denies excessive flatus, Denies dyspepsia, Reports heartburn, Denies diarrhea, Reports loose stools, Denies nausea, Denies odynophagia and Denies vomiting Reports no additional complaints Musc Reports no additional complaints Neuro Reports no additional complaints Psych Reports no additional complaints Endo Reports no additional complaints Physical Exam Vital Signs: Last Vital Signs Pulse 72 05/10/23 08:46 BP 105/55 L 05/10/23 08:46 BMI result Body Mass Index 25.0 Const General: healthy appearing, no acute distress and well developed Nutritional Appearance: well nourished Orientation/consciousness: patient oriented x3 Resp Effort & Inspection: normal respiratory effort, able to speak in complete sentences, no tracheal deviation and symmetric chest movement Auscultation: clear to auscultation bilaterally Cardio Rate: regular rate GI Inspection: Yes normal to inspection and No distended Palpation (GI): Soft to palpation, not firm, nontender and No hepatosplenomegaly present Auscultation: normal bowel sounds General: Yes no CVA tenderness Back/Spine/Pelvis Back: no CVA tenderness Skin General skin exam: elasticity normal, turgor normal and dry skin Neuro General: patient oriented x3 Psych Appearance: grossly normal Assessment & Plan Assessment & Plan (1) GERD (gastroesophageal reflux disease): Code(s): K21.9 - Gastro-esophageal reflux disease without esophagitis Qualifiers: Esophagitis presence: with esophagitis Esophagitis bleeding: without hemorrhage Qualified Code(s): K21.00 - Gastro-esophageal reflux disease with esophagitis, without bleeding (2) IBS (irritable bowel syndrome): Code(s): K58.9 - Irritable bowel syndrome without diarrhea Qualifiers: Irritable bowel syndrome type: with diarrhea Qualified Code(s): K58.0 - Irritable bowel syndrome with diarrhea (3) Diarrhea: Code(s): R19.7 - Diarrhea, unspecified Qualifiers: Diarrhea type: functional diarrhea Qualified Code(s): K59.1 - Functional diarrhea (4) Postprandial diarrhea: Code(s): K52.9 - Noninfective gastroenteritis and colitis, unspecified (5) Status post colonoscopy: Code(s): Z98.890 - Other specified postprocedural states Plan Patient will start taking Citrucel to help her bulk her stools. Continue taking omeprazole every morning half an hour before breakfast. Avoid dietary triggers and late night snacking. Staying upright for minimum 3 hours after meals discussed with patient. Patient can take famotidine at bedtime. Continue low fat diet. Avoid greasy food. Status post cholecystectomy and she is aware that she might never be able to be without postprandial loose stools unless she changes her diet. Patient will follow-up in the office in 6 months, sooner on as needed basis. Patient is agreeable to this plan and verbalizes understanding of instructions. She was given the opportunity questions and all questions answered. Thank you for allowing me to participate in her care Medications: New methylcellulose (laxative) (Citrucel) take it with full glass of water 500 mg PO DAILY 90 tabs 2RF K59.00 - Constipation, unspecified Refilled famotidine 40 mg PO BEDTIME 90 tabs 3RF K21.9 - Gastro-esophageal reflux disease without esophagitis Coding Level of Care Code Est Pt Level 4 (36047) Diagnoses Gastroesophageal reflux disease with esophagitis without hemorrhage K21.00 Esophagitis presence: with esophagitis Esophagitis bleeding: without hemorrhage Irritable bowel syndrome with diarrhea K58.0 Irritable bowel syndrome type: with diarrhea Functional diarrhea K59.1 Diarrhea type: functional diarrhea Postprandial diarrhea K52.9 Status post colonoscopy Z98.890 Time Spent (min) 35 Comment 20 minutes spent with patient and additional 15 minutes spent reviewing her records
[2023-05-10 08:46] VITALS: BP 105/55; PULSE 72; BMI 25.0
== END 2023-05-10 08:54 | disposition home or self-care (01) ==
PROVIDERS: PCP Internal Medicine; Visit Provider Nurse Practitioner Family
DX: K21.00 Gastro-esophageal reflux disease with esophagitis, without bleeding (principal); K58.0 Irritable bowel syndrome with diarrhea
CPT/HCPCS: 99214

== ENCOUNTER 2023-05-31 11:12 | Outpatient (AMB) | payer MEDICAID, SELFPAY ==
[2023-05-31 11:26] VITALS: BP 115/54; PULSE 62; RESP 16; O2SAT 99; BMI 24.8
--- NOTE | 2023-05-31 11:26 | MHC.OFFVIS ---
Vital Signs 05/31/23 11:26 Height 5 ft 6 in Weight 153 lb 6 oz BMI 24.8 BP 115/54 L Blood Pressure Location Lt brachial Position Sitting Respiration 16 Pulse 62 Pulse Source Pulse Oximeter Pulse Oximetry (%) 99 Oxygen Delivery Method Room Air Intake Visit Reasons: Sprint removal Allergies No Known Allergies [No Known Allergies*] Allergy (Verified 05/31/23 11:25) HPI Comments Details: Patient presents back to the office today for follow-up left shoulder pain and left suprascapular sprint PNS removal Patient reports pain today 10. She endorses improvement in range of motion of the left shoulder but continues with left shoulder pain. Prior to Sprint she states the pain went from the shoulder all the way to her hand now pain stops at the elbow. She no longer has pain to the hand. She did not find relief with the sprint device 04/08/[address] Stewart: 47-year-old female who presents today to the office for a status post left suprascapular sprint. A certified stock grader was present during the visit. The patient reports no significant relief yet following the procedure. She reports having pain with movements. She is still trying to move around the house, even with the pain. She has been using the device setting of 20, which was increased to 32 today in the office, and she tolerated it well. She endorses appropriate paresthesia sensations from the device. Past procedures: 04/04/23: Peripheral Nerve Stimulation Temporary Lead Placement, Ultrasound-Guided, Suprascapular Nerve, Left: No initial relief. 09/17/22: Left subacromial bursa injections under ultrasound guidance: Limited relief. 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 Answers questions appropriately. Fully engaged in examination. Skin: warm, dry, intact HEENT: Normocephalic. Hearing intact. Cardiac: External chest normal in appearance. Respiratory: No cough, audible wheezing or stridor. Abdomen: without gross distension. MS: No obvious swelling or deformities. Limited range of motion left upper extremity. Tenderness to palpation anterior and posterior left shoulder. Neurological: Oriented to person, place, time and situation. Thought process intact. No gait abnormalities appreciated. Psychiatric: Appropriate mood and affect. Good judgment and insight. Sprint removal: Dressing removed, Site dry, clean, intact. Area cleansed with chloraprep, lead removed with intact tip. Area cleansed again with chloraprep, bacitracin dressing with tegaderm applied. Patient tolerated removal well. Assessment & Plan Assessment & Plan (1) Painful arc syndrome of left shoulder: Code(s): M75.102 - Unspecified rotator cuff tear or rupture of left shoulder, not specified as traumatic Category: Medical (2) Left shoulder pain: Code(s): M25.512 - Pain in left shoulder Category: Medical Plan Patient presented to the office today for follow-up left shoulder pain and left suprascapular sprint PNS removal Sprint device was removed, as per above. Patient tolerated well Patient reports improvement in range of motion after device placement. She would like to try physical therapy again, but would like to have an order sent to in office closer to her home. Order placed for PT eval and treat. Patient was advised to follow-up with orthopedics given no improvement for her left shoulder pain after sprint PNS device. All questions and concerns were answered, patient agrees with the plan. Follow-up in our office as needed Orders: Orders PT Evaluation and Treatment Today M75.102 - Unspecified rotator cuff tear or rupture of left shoulder, not specified as traumatic
== END 2023-05-31 11:48 | disposition home or self-care (01) ==
PROVIDERS: PCP Internal Medicine; Visit Provider Registered Nurse Emergency
DX: M75.102 Unspecified rotator cuff tear or rupture of left shoulder, not specified as traumatic (principal); M25.512 Pain in left shoulder
CPT/HCPCS: 99213

== ENCOUNTER → 2023-05-31 11:12 | Outpatient (BNVA) | payer MEDICAID, SELFPAY | PROVIDERS: PCP Internal Medicine; Visit Provider Registered Nurse Emergency | DX: M75.102 Unspecified rotator cuff tear or rupture of left shoulder, not specified as traumatic (principal); M25.512 Pain in left shoulder | CPT/HCPCS: 99212 ==

== ENCOUNTER 2023-07-17 14:02 | Outpatient (REF) | payer MEDICAID, SELFPAY | END 2023-07-17 14:03 | disposition home or self-care (01) | LOC: HO.MAMMO 14:02 | PROVIDERS: PCP Internal Medicine; Visit Provider Internal Medicine | DX: Z12.31 Encounter for screening mammogram for malignant neoplasm of breast (principal) | CPT/HCPCS: 77063; 77067 ==

== ENCOUNTER → 2023-07-17 14:30 | Outpatient (BNV) | payer MEDICAID, SELFPAY | PROVIDERS: PCP Internal Medicine; Visit Provider Radiology Diagnostic Radiology | DX: Z12.31 Encounter for screening mammogram for malignant neoplasm of breast (principal) | CPT/HCPCS: 77063; 77067 ==

== ENCOUNTER 2023-12-11 08:17 | Outpatient (REF) | payer MEDICAID, SELFPAY ==
[2023-12-11 11:29] LABS: MANUAL DIFF FLAG NO
[2023-12-11 11:44] LABS: Basophils Percent Auto 0.2 % (0-2); Eosinophils Absolute Auto 0.1 X10*3/uL (0.0-0.4); Eosinophils Percent Auto 1.3 % (0-4); Hematocrit 35.9 % (37.0-47.0); Imm Gran Abs Auto 0.01 X10*3/uL (0.00-0.03); Imm Gran Pct Auto 0.2 % (0.0-0.4); Lymphocytes Absolute Auto 1.4 X10*3/uL (1.2-4.9); Lymphocytes Percent Auto 26.3 % (20-40); Mean Corpuscular HGB Conc 33.4 g/dl (31.0-35.0); Mean Corpuscular Hemoglobin 28.9 pg (27.0-33.0); Mean Corpuscular Volume 86.5 fL (80.0-98.0); Mean Platelet Volume 9.3 fL (9.4-12.3); Monocytes Absolute Auto 0.4 X10*3/uL (0.1-1.2); Monocytes Percent Auto 6.8 % (2-11); Neutrophils Absolute Auto 3.4 x10*3/uL (2.0-8.3); Neutrophils Percent Auto 65.2 % (45-73); Platelet Count 266 X10*3/uL (160-400); Red Blood Count 4.15 X10*6/uL (4.20-5.50); Red Cell Distribution Width 11.9 % (11.0-16.0); White Blood Count 5.3 X10*3/uL (4.8-10.8)
[2023-12-11 12:10] LABS: Alanine Aminotransferase 11 U/L (0-31); Albumin Level 3.7 g/dL (3.5-5.0); Alkaline Phosphatase 46 U/L (39-117); Anion Gap 12 (12-20); Aspartate Amino Transferase 18 U/L (5-31); Bilirubin Direct 0.2 mg/dL (0.0-0.5); Bilirubin Total 0.7 mg/dL (0.0-1.0); Blood Urea Nitrogen 8 mg/dL (9-16); Calcium 8.3 mg/dL (8.4-10.2); Carbon Dioxide 27 mmol/L (22-29); Chloride 102 mmol/L (96-108); Cholesterol 188 mg/dL (<200); Estimated Glomerular Filt Rate > 60; Glucose Random 100 mg/dL (60-115); HDL Cholesterol 83 mg/dL (>40); Iron 60 mcg/dL (30-160); LDL Cholesterol Calculated 84 mg/dL (<100); Percent Iron Saturation 20 % (15-50); Potassium 3.6 mmol/L (3.3-5.1); Sodium 137 mmol/L (135-145); Total Iron Binding Capacity 297 mcg/dL (228-428); Total Protein 6.7 g/dL (6.5-8.0); Triglycerides 106 mg/dL (<150); Unsaturated Iron Binding 237 ug/dL
[2023-12-11 12:37] LABS: Estimated Average Glucose 97 mg/dL; Hemoglobin A1C 95.4596 umol/L; Total Hemoglobin (HGBA1C) 3037.5847 umol/L
== END 2023-12-11 08:18 | disposition home or self-care (01) ==
LOC: HO.HHCL 08:17
PROVIDERS: Visit Provider Internal Medicine
DX: M79.7 Fibromyalgia (principal)
CPT/HCPCS: 36415; 80048; 80061; 80076; 83036; 83540; 85025

== ENCOUNTER 2024-05-11 16:44 | Outpatient (REF) | payer MEDICAID, SELFPAY ==
--- OUTSIDE RECORDS SUMMARY | 2024-05-11 18:07 | XMS_ITS | Clinical Summary ---
Author Organization [address] Address [address] [place] [phone] Care Team Providers Care Cardiology Clinical Nurse Specialist Name Role Phone Unavailable Primary Care Provider Unavailabl e Social History Tobacco Use Types Packs/Day Years Used Date Smoking Tobacco: Never Assessed Comments Unknown Sex and Gender Information Value Date Recorded Sex Assigned at Not on file Legal Sex Female 4:15 PM EST Gender Identity Not on file Sexual Orientation Not on file Plan of Treatment Health Maintenance Due Date Last Done Comments HIV screening 09/19/1987 Hepatitis C screening 1992 Tetanus adult (Td q 10,TDAP once) 1994 Cervical cancer screening 09/19/1995 Breast cancer screening 2014 Lipid disorder screening 2014 Colon cancer screening, Colonoscopy 09/19/2019 Diabetes screening 09/19/2019 Influenza vaccine 09/12/2023 Covid-19 vaccine series ( - 2023-25 season) 2023 RSV Immunization (1 - 1-dose 75+ series) 2049 Meningococcal Vaccine Aged Out No maria m tess eligible based on patient's age to complete this topic Pneumococcal Vaccine (2 - 49 years) Aged Out No longer eligible based on patient's age to complete this topic
--- OUTSIDE RECORDS SUMMARY | 2024-05-11 18:07 | XMS_ITS | Encounter Summary ---
Author Organization [employer] Address [address] [facility] 7t [place] [address] Care Team Providers Care Medical Assisting Program Director Name Role Phone Emily Loving MD Primary Care Provide r Reason for Visit * Reason Onset Date Comments medication 01/15/2023 Encounter Details Date Type Department Care Team ([facility] st Contact Info) Description 01/15/2023 Telephone [facility] ADULT DENTAL [address] [place] [address] Faisal Mercedes DDS [address] [place] [address] medication Social History Tobacco Use Types Packs/Day Years Used Date Smoking Tobacco: Never Passive Smoke Exposure: Never Smokeless Tobacco: Never Depression Answer Date Recorded Patient Health Questionnaire-9 Score 10 01/30/2022 Housing Stability Answer Date Recorded What is your housing situation today? I have ubaldo lucas 11/26/[address] you li ve. Do you have problems with any of the following? None of the above 11/26/2022 Food Insecurity Answer Date Recorded Within the past 12 months, y ou worried that your food would run out before you got money to buy more: Never True 11/26/2022 Within the past 12 months,th e food you bought just didn't last and you didn't have enough money to get more: Never True Transportation Answer Date Recorded In the past 12 months, has l ack of transportation kept you from medical appts, meetings, work or from getting things needed for daily living? No 11/26/2022 Utilities Answer Date Recorded In the past 12 months, has t he electric, gas, oil or water company threatened to shut off services in your home? No 11/26/2022 Depression Answer Date Recorded Patient Health Questionnaire-2 Score 4 01/30/2022 Comments Unknown Sex and Gender Information Value Date Recorded Sex Assigned at Female 12/11/2021 10:17 AM EDT Legal Sex Female 10:17 AM EDT Gender Identity Female 12/11/2021 10:17 AM EDT Sexual Orientation Straight 12/11/2021 10 :17 AM EDT documented as of this encounter Miscellaneous Notes * Telephone Encounter - Gissell Rangel - 01/15/2023 9:[address] Martin is not here today. Ta had RCT done and states she is in [place] and has begun to swell and states that no medication was sent to the pharmacy. [facility] [address] [facility] [place]. I have added the pharmacy to their profile DR documented in this encounter Plan of Treatment Upcoming Encounters Date Type Department Care Team (Late st Contact Info) Description 05/22/2024 2:30 PM EDT Office Visit [facility] ADULT DENTAL [address] [place] [address] Paulie Harrell, DMD [address] [place] [address] 08/11/2024 2:00 PM EDT Office Visit [facility] OPTOMETRY [address] [place] [address] YovaniConstanza titus, OD [address] [place] [address] 09/22/2024 8:00 AM EDT Office Visit [facility] ADULT DENT[facility] [address] [place] [address] Mónica, Isabel [address] [place] [address] documented as of this encounter Visit Diagnoses Not on filedocumented in this encounter Additional Health Concerns Assessment Noted Time PHQ-9 Depression Total Score: 10 022 1:43 PM EST documented as of this encounter Care Teams Medical Assisting Program Director Relationship Specialty Start Date End Date Emily Loving MD [address] [place] [address] PCP - General Family Medicine 04/08/18 Kary Torres holistic specialist 11/15/22 documented as of this encounter
--- OUTSIDE RECORDS SUMMARY | 2024-05-11 18:08 | XMS_ITS | Encounter Summary ---
Author Organization [email or web address] Address [address] [facility] [address] [place] [address] Care Team Providers Care Hydraulic Strainer Operator Name Role Phone Emily Loving MD Primary Care Provide r Reason for Visit * Reason Comments Med Refill Encounter Details Date Type Department Care Team (Late st Contact Info) Description 09/14/2022 Refill [facility] MEDIC[facility] [address] [place], [place] [phone] Omid Joseph FNP Psychosis, unspecified psychosis type (CMS/HCC) Social History Tobacco Use Types Packs/Day Years Used Date Smoking Tobacco: Never Passive Smoke Exposure: Never Smokeless Tobacco: Never Depression Answer Date Recorded Patient Health Questionnaire-9 Score 10 01/30/2022 Depression Answer Date Recorded Patient Health Questionnaire-2 Score 4 01/30/2022 Comments Unknown Sex and Gender Information Value Date Recorded Sex Assigned at Female 12/11/2021 10:17 AM EDT Legal Sex Female 10:17 AM EDT Gender Identity Female 12/11/2021 10:17 AM EDT Sexual Orientation Straight 12/11/2021 10 :17 AM EDT COVID-19 Exposure Response Date Recorded In the last 10 days, have yo u been in contact with someone who was confirmed or suspected to have Coronavirus/COVID-19? No / Unsure 08/16/2022 1:23 PM EDT documented as of this encounter Plan of Treatment Upcoming Encounters Date Type Department Care Team (Late st Contact Info) Description 05/22/2024 2:30 PM EDT Office Visit [facility] ADULT DENTAL [address] [place], [place] [phone] Paulie Harrell, BUCKY [address] [place], [place] [phone] 08/11/2024 2:00 PM EDT Office Visit [facility] OPTOMETRY [address] [place] [address] Yovani, Constanza, OD [address] [place] [address] 09/22/2024 8:00 AM EDT Office Visit [facility] ADULT DENT[facility] [address] [place] [address] Mónica, Isabel [address] [place] [address] documented as of this encounter Visit Diagnoses Diagnosis Psychosis, unspecified psychosis type (CMS/HCC) documented in this encounter Additional Health Concerns Assessment Noted Time PHQ-9 Depression Total Score: 10 022 1:43 PM EST documented as of this encounter Care Teams Hydraulic Strainer Operator Relationship Specialty Start Date End Date Emily Loving MD [address] [place] [address] PCP - General Family Medicine 04/08/18 Kary Torres networker 11/15/22 documented as of this encounter
--- OUTSIDE RECORDS SUMMARY | 2024-05-11 18:08 | XMS_ITS | Encounter Summary ---
Author Organization [email or web address] Address [address] [facility] 7t [place] [address] Care Team Providers Care Acupuncturist Name Role Phone Emily Loving MD Primary Care Provide r Encounter Details Date Type Department Care Team (Latest Contact Info) Description 05/03/2020 Abstract [facility] Dental, Provider, DDS Social History Tobacco Use Types Packs/Day Years Used Date Smoking Tobacco: Never Assessed Comments Unknown Sex and Gender Information Value Date Recorded Sex Assigned at Female 12/11/2021 10:17 AM EDT Legal Sex Female 10:17 AM EDT Gender Identity Female 12/11/2021 10:17 AM EDT Sexual Orientation Straight 12/11/2021 10 :17 AM EDT documented as of this encounter Plan of Treatment Upcoming Encounters Date Type Department Care Team (Late st Contact Info) Description 05/22/2024 2:30 PM EDT Office Visit [facility] ADULT DENTAL [address] [place] [address] Paulie Harrell, BUCKY [address] [place] [address] 08/11/2024 2:00 PM EDT Office Visit [facility] OPTOMETRY [address] [place] [address] Constanza Pina, OD [address] [place] [address] 09/22/2024 8:00 AM EDT Office Visit [facility] ADULT DENTAL [address] [place] [address] Isabel Sales [address] [place] [address] documented as of this encounter Visit Diagnoses Not on filedocumented in this encounter Care Teams Acupuncturist Relationship Specialty Start Date End Date Emily Loving MD [address] [place] [address] PCP - General Family Medicine 04/08/18 Kary Torres risk consultant 11/15/22 documented as of this encounter
--- OUTSIDE RECORDS SUMMARY | 2024-05-11 18:08 | XMS_ITS | Encounter Summary ---
Author Organization [employer] Address [address] [facility] [address] [place] [address] Care Team Providers Care Physical Damage Appraiser Name Role Phone Emily Loving MD Primary Care Provide r Encounter Details Date Type Department Care Team (Latest Contact Info) Description 05/11/2024 Travel Social History Tobacco Use Types Packs/Day Years Used Date Smoking Tobacco: Never Passive Smoke Exposure: Never Smokeless Tobacco: Never Alcohol Use Standard Drinks/Week Comments Never 0 (1 standard drink = 0.6 oz pur e alcohol) Depression Answer Date Recorded Patient Health Questionnaire-9 Score 22 03/24/2024 Patient Health Questionnaire-9 Score 22 03/24/2024 Last PHQ-9: Questionnaire Data Not on file 0 03/24/2024 Housing Stability Answer Date Recorded What is your housing situation today? I have ubaldo lucas 07/11/[address] you li ve. Do you have problems with any of the following? None of the above 07/11/2023 Food Insecurity Answer Date Recorded Within the past 12 months, y ou worried that your food would run out before you got money to buy more: Never True 07/11/2023 Within the past 12 months,th e food you bought just didn't last and you didn't have enough money to get more: Never True Transportation Answer Date Recorded In the past 12 months, has l ack of transportation kept you from medical appts, meetings, work or from getting things needed for daily living? No 07/11/2023 Utilities Answer Date Recorded In the past 12 months, has t he electric, gas, oil or water company threatened to shut off services in your home? No 07/11/2023 Depression Answer Date Recorded Patient Health Questionnaire-2 Score 6 03/24/2024 Internet Access Answer Date Recorded Internet Access Q1 Yes 11/07/2023 Internet Access Q2 Not on file 11/07/2023 Comments Unknown Sex and Gender Information Value [...] Description 05/22/2024 2:30 PM EDT Office Visit [facility] ADULT DENTAL [address] [place] [address] Paulie Harrell, DMD [address] [place] [address] 08/11/2024 2:00 PM EDT Office Visit [facility] OPTOMETRY [address] [place] [address] Yovani, Constanza, OD [address] [place] [address] 09/22/2024 8:00 AM EDT Office Visit [facility] ADULT DENTAL [address] [place] [address] Mónica, Isabel [address] [place] [address] documented as of this encounter Visit Diagnoses Not on filedocumented in this encounter Additional Health Concerns Assessment Noted Time PHQ-9 Depression Total Score: 22 025 1:58 PM EST documented as of this encounter Care Teams Physical Damage Appraiser Relationship Specialty Start Date End Date Emily Loving MD [address] [place] [address] PCP - General Family Medicine 04/08/18 Kary Torres RN Care Manager 11/15/22 documented as of this encounter
--- OUTSIDE RECORDS SUMMARY | 2024-05-11 18:08 | XMS_ITS | Encounter Summary ---
Author Organization [employer] Address [address] [facility] [address] [place] [address] Care Team Providers Care Acquisition Analyst Name Role Phone Emily Loving MD Primary Care Provide r Reason for Visit * Reason Comments Med Refill Encounter Details Date Type Department Care Team (Late Contact Info) Description 05/02/2022 Refill [facility] MEDICINE [address] [place], [place] [phone] Omid Joseph FNP Psychosis, unspecified psychosis type (CMS/HCC) Social History Tobacco Use Types Packs/Day Years Used Date Smoking Tobacco: Never Smokeless Tobacco: Never Depression Answer Date [...] suspected to have Coronavirus/COVID-19? No / Unsure 05/02/2022 10:47 AM EDT documented as of this encounter Plan of Treatment Upcoming Encounters Date Type Department Care Team (Late Contact Info) Description 05/22/2024 2:30 PM EDT Office Visit [facility] ADULT DENTAL [address] [place], [place] [phone] Paulie Harrell, BUCKY [address] [place], [place] [phone] 08/11/2024 2:00 PM EDT Office Visit [facility] OPTOMETRY [address] [place], [place] [phone] Constanza Pina, OD [address] [place] [address] 09/22/2024 8:00 AM EDT Office Visit [facility] ADULT DENTAL [address] [place] [address] Mónica, Isabel [address] [place] [address] documented as of this encounter Visit Diagnoses Diagnosis Psychosis, unspecified psychosis type (CMS/HCC) documented in this encounter Additional Health Concerns Assessment Noted Time PHQ-9 Depression Total Score: 10 022 1:43 PM EST documented as of this encounter Care Teams Acquisition Analyst Relationship Specialty Start Date End Date Emily Loving MD [address] [place] [address] PCP - General Family Medicine 04/08/18 Kary Torres RN Care Manager 11/15/22 documented as of this encounter
--- OUTSIDE RECORDS SUMMARY | 2024-05-11 18:08 | XMS_ITS | Clinical Summary ---
Author Organization [address] [place] [address] Address [address] [place] [address] Phone Care Team Providers Care Information Services Vice President Name Role Phone Emily Loving MD Primary Care Provide r Social History Tobacco Use Types Packs/Day Years Used Date Smoking Tobacco: Never Assessed Comments Unknown Sex and Gender Information Value Date Recorded Sex Assigned at Not on file Legal Sex Female 4:32 AM EST Gender Identity Not on file Sexual Orientation Not on file Plan of Treatment Upcoming Encounters Date Type Department Care Team ([facility] Contact Info) Description 06/08/2024 2:15 PM EDT Office Visit Orthopedic Surgery - [place] [address] [phone] Lamonte Kwok, DPM [address] [address] Health Maintenance Due Date Last Done Comments Breast Cancer Screening 1974 DTaP,Tdap,and Td Vaccines (1 - Tdap) 1993 Hepatitis B Vaccines (1 of 3 - 19+ 3-dose series) 1993 Cervical Cancer Screening: P ap Smear 09/19/1995 COVID-19 Vaccine (2023-2 5 season) 2023 Influenza Vaccine (#1) 2023 Colorectal Cancer Screening: Colonoscopy 12/31/2023 Depression Screening 12/31/2023 HIV Screening 12/31/2023 Hepatitis C Screening 12/31/2023 Social Influencers of Health Screening 12/31/2023 HIB Vaccines Aged Out No longer eligi ble based on patient's age to complete this topic HPV Vaccines Aged Out No longer eligi ble based on patient's age to complete this topic Hepatitis A Vaccines Aged Out No long er eligible based on patient's age to complete this topic IPV Vaccines Aged Out No longer eligi ble based on patient's age to complete this topic MMR Vaccines Aged Out No longer eligi ble based on patient's age to complete this topic Meningococcal ACWY Vaccine Aged Out N o longer eligible based on patient's age to complete this topic Meningococcal B Vacine Aged Out No lo nger eligible based on patient's age to complete this topic Pneumococcal Vaccine: Pediat rics (0 to 5 Years) and At-Risk Patients (6 to 64 Years) Aged Out No longer eligible b ased on patient's age to complete this topic RSV Immunization Patients Un kasandra 20 months Aged Out No longer eligible b ased on patient's age to complete this topic Varicella Vaccines Aged Out No longer eligible based on patient's age to complete this topic Insurance MEDICAID - [place] Care Teams Information Services Vice President Relationship Specialty Start Date End Date Emily Loving MD [address] [place] [phone] PCP - General Internal Medicine 12/31/23
--- OUTSIDE RECORDS SUMMARY | 2024-05-11 18:08 | XMS_ITS | Encounter Summary ---
Author Organization [employer] Address [address] [facility] [address] [place] [address] Care Team Providers Care Type Bar And Segment Assembler Name Role Phone Emily Loving MD Primary Care Provide r Reason for Visit * Reason Onset Date Comments r/s 02/15/23 02/15/2023 Encounter Details Date Type Department Care Team ([facility] st Contact Info) Description 02/15/2023 Telephone [facility] MEDICINE [address] [place], [place] [phone] Emily Loving MD [address] [place], [place] [phone] r/s 02/15/23 Social History Tobacco Use Types Packs/Day Years [...] encounter Miscellaneous Notes * Telephone Encounter - Joseph Laird - 02/15/2023 12:12 PM EST Tc from pt called to r/s Office visit 02/15/23 for 03/12/23. documented in this encounter Plan of Treatment Upcoming Encounters Date Type Department Care Team (Late st Contact Info) Description 05/22/2024 2:30 PM EDT Office Visit [facility] ADULT DENTAL [address] [place] [address] Paulie Harrell, DMD [address] [place] [address] 08/11/2024 2:00 PM EDT Office Visit [facility] OPTOMETRY [address] [place] [address] Yovani, Constanza, OD [address] [place] [address] 09/22/2024 8:00 AM EDT Office Visit [facility] ADULT DENTAL [address] [place] [address] Mónica, Isabel [address] [place] [address] documented as of this encounter Visit Diagnoses Not on filedocumented in this encounter Additional Health Concerns Assessment Noted Time PHQ-9 Depression Total Score: 10 022 1:43 PM EST documented as of this encounter Care Teams Type Bar And Segment Assembler Relationship Specialty Start Date End Date Emily Loving MD [address] [place] [address] PCP - General Family Medicine 04/08/18 Kary Torres crossbar frame wirer 11/15/22 documented as of this encounter
--- OUTSIDE RECORDS SUMMARY | 2024-05-11 18:08 | XMS_ITS | Encounter Summary ---
Author Organization [employer] Address [address] [place] [address] [address] [place] [address] Care Team Providers Care Behavioral Therapist Name Role Phone Emily Loving MD Primary Care Provide r Reason for Referral * Consultation (Routine) - Pending Review Specialty Diagnoses / Procedures Referred By Contsybil t Referred To Contact Podiatry Diagnoses Heel pain, bilateral Emily Loving MD [address] [place] [phone] Phone: tel: fax: Referral ID Status Reason Start Date Expiration Date Visits Requested Visits Authorized [id number] Pending Review Specialty Services Required 05/11/2024 05/11/2025 1 1 * Consultation (Routine) - Pending Review Specialty Diagnoses / Procedures [facility] Referred To Contact Pain Medicine Diagnoses Chronic midline low back pain, unspecified whether sciatica present Emily Loving MD [address] [place] [phone] Phone: tel: fax: Referral ID Status Reason Start Date Expiration Date Visits Requested Visits Authorized [id number] Pending Review Specialty Services Required 05/11/2024 05/11/2025 1 1 Reason for Visit * Reason Comments Gynecologic Exam Encounter Details Date Type Department Care Team (Latest Contact Info) Description 05/11/2024 2:45 PM EDT Procedure Visit [facility] [address] [place] [phone] Emily Loving MD [address] [place] [address] Pap smear for cervical cancer screening (Primary Dx); Chronic midline low back pain, unspecified whether sciatica present; Heel pain, bilateral Social History Tobacco Use Types Packs/Day Years Used Date Smoking Tobacco: Never Passive Smoke Exposure: Never Smokeless Tobacco: Never Tobacco Cessation:Counseling Given: Not Answered Alcohol Use Standard Drinks/Week Comments Never 0 (1 standard drink = 0.6 oz pur e alcohol) Depression Answer Date Recorded Patient Health Questionnaire-9 Score 22 03/24/2024 Patient Health Questionnaire-9 Score 22 03/24/2024 Last PHQ-9: Questionnaire Data Not on file 0 03/24/2024 Housing Stability Answer Date Recorded What is your housing situation today? I have ubaldok[facility]ina lucas 07/11/[address] you [...] AM EDT documented as of this encounter Last Filed Vital Signs Vital Sign Reading Time Taken Comments Blood Pressure 127/77 05/11/2024 2:53 PM EDT Pulse 73 05/11/2024 2:53 PM EDT Temperature 35.9 ??C (96.6 ??F) 05/11/2024 2:53 PM ED T Respiratory Rate 20 05/11/2024 2:53 PM EDT Oxygen Saturation 98% 05/11/2024 2:53 PM EDT Inhaled Oxygen Concentration - - Weight 73 kg (161 lb) 05/11/2024 2:53 PM EDT Height 167.6 cm (5' 6 ) 05/11/2024 2:53 PM EDT Body Mass Index 25.99 05/11/2024 2:53 PM EDT documented in this encounter Progress Notes * Emily Skinner MD - 05/11/2024 2:45 PM EDT SUBJECTIVE: Loraine Russ is a 48 y.o. year old female who presents for Pap . Patient denies breast pain, lumps, nipple retraction or discharge Patient denies pelvic pain or abnormal bleeding she does reports vaginal discharge Acute Concerns: Patient today reports she has been having for the past few days acute on chronic lower back pain, she reports she does take her Flexeril and acetaminophen which she does have the pain but is not helping her a lot Social History Social History Narrative Not on file Patient Active Problem List Diagnosis Alcohol abuse Chronic midline low back pain without sciatica Diffuse pain Fibromyalgia Fatigue Gastroesophageal reflux disease without esophagitis Generalized headache Lactose intolerance Seborrheic dermatitis of scalp Shoulder pain Snoring Venous retinal branch occlusion Vitamin D deficiency Psychosis (CMS/HCC) History of COVID-19 Dental calculus Missing teeth, acquired Dental caries Seasonal allergies Bilateral foot pain Rosacea Severe anxiety Atypical chest pain Neck pain Onychomycosis Vertigo Allergic rhinitis Loud snoring 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 HENT: Negative. Respiratory: Negative. Cardiovascular: Negative. Genitourinary: Negative. Musculoskeletal: Positive for back pain. OBJECTIVE: Vitals: 05/11/24 1453 BP: 127/77 BP Location: Left arm Patient Position: Sitting BP Cuff Size: Large adult Pulse: 73 Resp: 20 Temp: 96.6 ??F (35.9 ??C) TempSrc: Temporal SpO2: 98% Weight: 161 lb (73 kg) Height: 5' 6 (1.676 m) Physical Exam Exam conducted with a internet marketing intern present. Constitutional: Appearance: Normal appearance. Cardiovascular: Rate and Rhythm: Normal rate and regular rhythm. Pulmonary: Effort: Pulmonary effort is normal. Breath sounds: Normal breath sounds. Abdominal: General: Abdomen is flat. Palpations: Abdomen is soft. Genitourinary: Vagina: Normal. Cervix: Normal. Uterus: Normal. Adnexa: Right adnexa normal and left adnexa normal. Neurological: Mental Status: She is alert. Follow Up: No follow-ups on file. Current Outpatient Medications on File Prior to Visit Medication Sig Dispense Refill acetaminophen (Tylenol 8 Hour) 650 MG ER tablet TAKE 2 TABLETS BY MOUTH EVERY 8 HOURS NEEDED FORMILD PAIN DO NOT BREAK, CRUSH, DISSOLVE OR CHEW 50 tablet 1 albuterol 108 (90 Base) MCG/ACT inhaler Inhale 2 puffs every 4 (four) hours if needed for wheezing or shortness of breath. 18 g 0 cholestyramine (Questran) 4 g packet ciclopirox (Penlac) 8 % solution Apply topically at bedtime. 6 mL 1 clonazePAM (KlonoPIN) 0.5 MG tablet Take 0.5 mg by mouth if needed in the morning and at bedtime. cyclobenzaprine (Flexeril) 10 MG tablet TAKE 1 TABLET BY MOUTH THREE TIMES DAILY IN THE MORNING, ATNOON, AND AT BEDTIME NEEDED FOR MUSCLE SPASMS 60 tablet 1 divalproex (Depakote ER) 500 MG 24 hr tablet Take 1 tablet (500 mg) by mouth every 12 (twelve) hours. Do not crush, chew, or split. 60 tablet 2 docusate sodium (Colace) 100 MG capsule take 1 capsule by oral route 2 times every day prn constipation as needed ergocalciferol (Vitamin D-2) 1.25 MG (70311 UT) capsule take 1 capsule by oral route every week famotidine (Pepcid) 40 MG tablet TAKE 1 TABLET BY MOUTH AT BEDTIME 90 tablet 0 FLUoxetine (PROzac) 20 MG capsule Take 1 capsule (20 mg) by mouth Once per day. 30 capsule 2 gabapentin (Neurontin) 800 MG tablet Take 1 tablet (800 mg) by mouth 3 times daily. 90 tablet 11 hydrOXYzine pamoate (Vistaril) 25 MG capsule Take 1 capsule (25 mg) by mouth every 6 (six) hours ifneeded for anxiety. 40 capsule 2 ibuprofen 400 MG tablet TAKE 1 TABLET BY MOUTH EVERY 8 HOURS NEEDED FOR PAIN OR FEVER 60 tablet 1 ketoconazole (NIZOral) 2 % shampoo apply by topical route every day to the affected area(s), lather, leave in place for 5 minutes, and then rinse off with water loperamide (Imodium) 2 MG capsule take 2 capsule by oral route after 1st loose stool, followed by 1capsule after each subsequent loose stool not to exceed 16 mg/day metroNIDAZOLE (Metrogel) 0.75 % gel APPLY TOPICALLY TO THE AFFECTED AREA(S) OF THE FACE TWICE DAILYFOR rosacea 45 g 2 norethindrone (Aygestin) 5 MG tablet 1 tablet twice daily for 10 days 20 tablet 0 OLANZapine (ZyPREXA) 15 MG tablet Take 1 tablet (15 mg) by mouth at bedtime. Also Olanzapine 5 mg in the morning 30 tablet 2 OLANZapine (ZyPREXA) 5 MG tablet Take 1 tablet (5 mg) by mouth Once per day. Also Olanzapine 15 mg at betime 30 tablet 2 omeprazole (PriLOSEC) [address] capsule TAKE 1 CAPSULE BY MOUTH ONCE DAILY BEFORE A MEAL 90 capsule 1 ondansetron (Zofran) 4 MG tablet take 1 Tablet by oral route every 8 hours as needed for nausea prazosin (Minipress) 5 MG capsule TAKE 2 CAPSULES BY MOUTH AT BEDTIME 180 capsule 0 pseudoephedrine (Sudafed) 30 MG tablet Take 1 tablet (30 mg) by mouth every 6 (six) hours if neededfor congestion for up to 10 days. 30 tablet 0 pseudoephedrine (SudoGest) 30 MG tablet Take 1 tablet (30 mg) by mouth every 4 (four) hours if needed for congestion for up to 10 days. 30 tablet 0 sodium chloride (Cushman) 0.65 % nasal spray Administer 2 sprays into each nostril if needed for congestion. 30 mL 3 Sodium Fluoride (PreviDent) 1.1 % gel Use at bed time every night spit do not rinse for 30 min. SudoGest 30 MG tablet TAKE 1 TABLET BY MOUTH EVERY MORNING 30 tablet 0 Sulfacetamide Sodium-Sulfur 9-4.5 % liquid WASH FACE TWICE DAILY DIRECTED 454 g 1 traZODone (Desyrel) 150 MG tablet Take 1 tablet (150 mg) by mouth at bedtime. 30 tablet 3 [DISCONTINUED] cyclobenzaprine (Flexeril) 10 MG tablet Take 1 tablet (10 mg) by mouth 3 times dailyfor 20 days. 60 tablet 0 [DISCONTINUED] fexofenadine (Kerrie) 180 MG tablet Take 1 tablet (180 mg) by mouth Once per day. 90 tablet 0 [DISCONTINUED] fluticasone (Flonase) 50 MCG/ACT nasal spray INSTILL 1 SPRAY IN EACH NOSTRIL ONCE DAILY IN THE MORNING 48 mL 0 [DISCONTINUED] LORazepam (Ativan) 1 MG tablet Take 1 tablet (1 mg) by mouth every 12 (twelve) hoursif needed for anxiety. 60 tablet 0 Current Facility-Administered Medications on File Prior to Visit Medication Dose Route Frequency Provider Last Rate Last Admin ibuprofen tablet 400 mg 400 mg Oral Once HORACE Verdugo Problem List Items Addressed This Visit Pap smear for cervical cancer screening - Primary Relevant Orders Pap Smear Bacterial Vaginosis Panel Chlamydia/N. Gonorrhoeae RNA, TMA, Urogenitial Chronic midline low back pain Apply heat on affected area Continue with Flexeril 10 mg every 8 hours patient is aware of side effects Continue with ibuprofen as needed she may alternate with acetaminophen I will refer patient to pain management Relevant Orders Referral to Pain Medicine Heel pain, bilateral Patient's information provided advised to do exercises at home I will refer her to podiatry Relevant Orders Referral to Podiatry documented in this encounter Miscellaneous Notes * Assessment & Plan Note - Emily Skinner MD - 05/11/2024 4:32 PM EDT Associated Problem(s): Heel pain, bilateral Patient's information provided advised to do exercises at home I will refer her to podiatry * Assessment & Plan Note - Emily Skinner MD - 05/11/2024 4:32 PM EDT Associated Problem(s): Chronic midline low back pain Apply heat on affected area Continue with Flexeril 10 mg every 8 hours patient is aware of side effects Continue with ibuprofen as needed she may alternate with acetaminophen I will refer patient to pain management documented in this encounter Plan of Treatment Upcoming Encounters Date Type Department Care Team (Late st Contact Info) Description 05/22/2024 2:30 PM EDT Office Visit [facility] [address] [place] [address] Paulie Harrell, DMD [address] [place] [address] 08/11/2024 2:00 PM EDT Office Visit [facility] [address] [place] [address] Yovani, Constanza, OD [address] [place] [address] 09/22/2024 8:00 AM EDT Office Visit [facility] [address] [place] [address] Phuc Salesaris [address] [place] [address] Scheduled Orders Name Type Priority Associated Diagnoses Order Schedule Pap Smear Pathology and Cytology Routine Pap smear for cervical cancer screening Ordered: 05/11/2024 Bacterial Vaginosis Panel Microbiology Routine Pap smear for cervical cancer screening Ordered: 05/11/2024 Chlamydia/N. Gonorrhoeae RNA, TMA, Urogenitial Microbiology Routine Pap smear for cervical cancer screening Ordered: 05/11/2024 Scheduled Referrals Name Type Priority Associated Diagnoses Orde r Schedule Referral to Pain Medicine Outpatient Referral Routine Chronic midline low back pain, unspecified whether sciatica present Expected: 05/11/2024 (Approximate), Expires: 05/11/2025 Referral to Podiatry Outpatient Referral Routine Heel pain, bilateral Expected: 05/11/2024 (Approximate), Expires: 05/11/2025 documented as of this encounter Visit Diagnoses Diagnosis Pap smear for cervical cancer screening- Primary Screening for malignant neoplasm of the cervix Chronic midline low back pain, unspecified whether sciatica present Heel pain, bilateral documented in this encounter Additional Health Concerns Assessment Noted Time PHQ-9 Depression Total Score: 22 025 1:58 PM EST documented as of this encounter Care Teams Behavioral Therapist Relationship Specialty Start Date End Date Emily Loving MD [address] [place] [phone] PCP - General Family Medicine 04/08/18 Kary Torres RN Care Manager 11/15/22 documented as of this encounter
--- OUTSIDE RECORDS SUMMARY | 2024-05-11 18:08 | XMS_ITS | Clinical Summary ---
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 due date for their next mammogram. ? Dictated By: ?Ana Cristina Freedman MD ? Signed By: ?<Electronically signed by Ana Cristina Freedman MD in OV> ? 08/13/23824 ? DD/ 1425 ? TD/TT: ? Computer Systems Integrator: ? Procedure Note Donotuseinterpreter, Image - 08/13/2023 [facility] [address] [place] [address] Mammography Report Signed Patient: Khushboo Russ#: [id number] 2 : 1975Acct:[id number] Age/Sex: 47 / FADM Date: 07/17/23 Loc: HO.MAMMO Attending Dr: Emily Skinner MD Ordering Physician: Emily Loving MDResults: 1Negative Date of Service: 07/17/23Follow Up: 1 Year From Orig inal Mammogram Procedure(s): MM tomosynthesis screening BI Accession Number(s): [id number] cc: Emily Loving MD EXAMINATION: MM SCREENING DIGITAL BREAST TOMOSYNTHESIS, BILATERAL CLINICAL INFORMATION: Screening. Asymptomatic. COMPARISON: Mammography: This study is compared with prior exams dating back to 2019. TECHNIQUE: Digital breast tomosynthesis is performed in both the craniocaudal and mediolateral oblique views along with computer-aided detection (CAD). Synthesized 2D images are generated from the tomosynthesis. FINDINGS: There are scattered areas of fibroglandular density (ACR BI-RADS breast composition Category b). There are no significant masses, abnormal calcifications, or other abnormalities. MM/MM tomosynthesis screening BI IMPRESSION: No mammographic evidence of malignancy. ASSESSMENT: BI-RADS BI-RADS 1 - Negative RECOMMENDATION: Routine annual mammography screening. 1 year F/U This examination should not preclude the clinical evaluation of a suspicious palpable abnormality. This patient's information was entered into a reminder system with a target due date for their next mammogram. Dictated By: Ana Cristina Freedman MD Signed By: <Electronically signed by Ana Cristina Freedman MD in OV> 08/13/23 0825 DD/ 1425 TD/TT: Computer Systems Integrator: Emily Skinner MD IMG BI PROCEDURES Jc carolina Result - Final * Hm Colonoscopy (05/10/2023) Pathologist [facility] Colonoscopy Normal Normal Narrative Amirah, Ydai - 05/10/2023 Repeat Colonoscopy in 5 years due to fair prep or earlier if clinically indicated (see external hospital admission note on 05/10/2023) [facility] Provider [facility] Final Result * HEPATITIS B SURFACE ANTIBODY (05/10/2021 11:01 AM EDT) Hepatitis B Surface Antibody NONREACTIVE Nonreactive [facility] Comment:Nonreactive: < 8.00 mIU/mL HIV AB/AG Nonreactive Nonreactive [facility] Comment: HIV-1 p24 Ag and/or HIV-1/HIV-2 Ab not detected. ?? A test result that is nonreactive does not exclude the possibility of exposure to or infection with HIV-1 and/or HIV-2. Nonreactive results in this assay for individuals with prior exposure to HIV-1 and/or HIV-2 may be due to antigen and antibody levels that are below the limit of detection of this assay. ?? The [employer] HIV Ag/Ab Combo assay result and supplemental assay results should be interpreted in conjunction with the patient's clinical presentation, history and other laboratory results. ??If the results are inconsistent with clinical evidence, additional testing is suggested to confirm the result. Hepatitis B Surface Antigen Negative Negative [facility] 05/10/2021 11:0 1 AM EDT Emily Skinner MD HISTORICAL/NON ORDERA BLE LABS Final Result Performing Organization Address [facility]/ZIP Co de Phone Number [facility] [address] * HEPATITIS C ANTIBODY RFLX (05/10/2021 11:01 AM EDT) Hepatitis C Antibody Nonreactive Nonreactive [facility] Comment: Antibodies to HCV not detected; does not exclude early acute HCV infection. 05/10/2021 11:0 1 AM EDT Emily Skinner MD HISTORICAL/NON ORDERA BLE LABS Final Result Performing Organization Address [facility] de Phone Number [facility] [address] * HPV mRNA E6/E7 (08/07/2018 1:50 PM EDT) Pathologist [facility] HPV mRNA E6/E7 Not Detected NOT DETECTED [facility] Comment: This test was performed using the APTIMA(R) HPV Assay ([employer] This assay detects E6/E7 viral messenger RNA (mRNA) from 14 high-risk HPV types (16,18,31,33,35,39,45,51, 52,56,58,59,66,68). For additional information please refer to: http://education.[employer]/faq/NOV219w8 (This link is being provided for informational/ educational purposes only.) The analytical performance characteristics of this assay have been determined by [employer] [place], [place]. The modifications have not been cleared or approved by the FDA. This assay has been validated pursuant to the CLIA regulations and is used for clinical purposes. Test Performed by [employer] [facility], [address] [place] [address] Pranav Martinez M.D., Ph.D., Director of Laboratories , CLIA [id number] Please note: ??Effective 10/24/2015, HPV testing will be performed using [employer]'s APTIMA test which targets mRNA. Detecting mRNA instead of DNA, as in older methods, offers significant improvements in specificity. 08/07/2018 1:50 PM EDT Emily Skinner MD HISTORICAL/NON ORDERA BLE LABS Final Result [facility] [address] [place] [address], from Last 3 Months or Most Recently Relevant to Health Maintenance Insurance [facility] C3 HSN PARTIAL DENTAL-[facility] MEDICAID STAND ADULT Care Teams Supply Analyst Relationship Specialty Start Date End Date Emily Loving MD [address] [place] [address] PCP - General Family Medicine 04/08/18 Kary Torres RN Care Manager 11/15/22
--- OUTSIDE RECORDS SUMMARY | 2024-05-11 18:08 | XMS_ITS | Encounter Summary ---
Author Organization [employer] Address 75 [facility] 7t [place] [address] Care Team Providers Care Lining Folder Name Role Phone Emily Loving MD Primary Care Provide r Encounter Details Date Type Department Care Team ([facility] st Contact Info) Description 11/27/2022 Abstract [facility] MEDICINE [address] [place], [place] [phone] Emily Loving MD 230 [place], [place] [phone] Social History Tobacco Use Types Packs/Day Years Used Date Smoking Tobacco: Never Passive Smoke Exposure: Never Smokeless Tobacco: Never Depression Answer Date Recorded Patient Health Questionnaire-9 Score 10 01/30/2022 Housing Stability Answer Date Recorded What is your housing situation today? I have ubaldokatina lucas 11/26/[address] you [...] Description 05/22/2024 2:30 PM EDT Office Visit [facility] ADULT DENTAL [address] [place] [address] Paulie Harerll, DMD [address] [place] [address] 08/11/2024 2:00 PM EDT Office Visit [facility] OPTOMETRY [address] [place] [address] Yovani, Constanza, OD 230 [place] [address] 09/22/2024 8:00 AM EDT Office Visit [facility] ADULT DENTAL [address] [place] [address] Mónica, Isabel [address] [place] [address] documented as of this encounter Visit Diagnoses Not on filedocumented in this encounter Additional Health Concerns Assessment Noted Time PHQ-9 Depression Total Score: 10 022 1:43 PM EST documented as of this encounter Care Teams Lining Folder Relationship Specialty Start Date End Date Emily Loving MD 230 [place] [address] PCP - General Family Medicine 04/08/18 Kary Torres RN Care Manager 11/15/22 documented as of this encounter
--- OUTSIDE RECORDS SUMMARY | 2024-05-11 18:08 | XMS_ITS | Encounter Summary ---
Author Organization [employer] Address 75 [facility] 7t [place] [address] Care Team Providers Care Hand Ii Cutter Name Role Phone Emily Loving MD Primary Care Provide r Encounter Details Date Type Department Care Team (Latest Contact Info) Description 05/15/2021 Abstract [facility] CONVERSIONS Dental, Provider, DDS Social History Tobacco [...] Description 05/22/2024 2:30 PM EDT Office Visit [facility] ADULT DENTAL [address] [place] [address] Paulie Harrell, BUCKY [address] [place] [address] 08/11/2024 2:00 PM EDT Office Visit [facility] OPTOMETRY [address] [place] [address] Constanza Pina, OD [address] [place] [address] 09/22/2024 8:00 AM EDT Office Visit [facility] ADULT DENTAL [address] [place] [address] Isabel Sales [address] [place] [address] documented as of this encounter Visit Diagnoses Not on filedocumented in this encounter Care Teams Hand Ii Cutter Relationship Specialty Start Date End Date Emily Loving MD [address] [place] [address] PCP - General Family Medicine 04/08/18 Kary Torres mold dumper 11/15/22 documented as of this encounter
--- OUTSIDE RECORDS SUMMARY | 2024-05-11 18:08 | XMS_ITS | Encounter Summary ---
Author Organization [employer] Address 75 [facility] 7t [place] [address] Care Team Providers Care Lease Broker Name Role Phone Emily Loving MD Primary Care Provide r Reason for Visit * Reason Comments Med Refill Encounter Details Date Type Department Care Team (Late st Contact Info) Description 11/02/2022 Refill [facility] MEDICINE [address] [place], [place] [phone] Emily Loving MD 230 [place], [place] [phone] Social History Tobacco Use Types Packs/Day Years [...] Description 05/22/2024 2:30 PM EDT Office Visit [facility] ADULT DENTAL [address] [place] [address] Paulie Harrell DMD [address] [place], [place] [phone] 08/11/2024 2:00 PM EDT Office Visit [facility] OPTOMETRY [address] [place], [place] [phone] Yovani, Constanza, OD [address] [place] [address] 09/22/2024 8:00 AM EDT Office Visit [facility] ADULT DENTAL [address] [place] [address] Mónica, Isabel [address] [place] [address] documented as of this encounter Visit Diagnoses Not on filedocumented in this encounter Additional Health Concerns Assessment Noted Time PHQ-9 Depression Total Score: 10 022 1:43 PM EST documented as of this encounter Care Teams Lease Broker Relationship Specialty Start Date End Date Emily Loving MD [address] [place] [address] PCP - General Family Medicine 04/08/18 Kary Torres RN Care Manager 11/15/22 documented as of this encounter
--- OUTSIDE RECORDS SUMMARY | 2024-05-11 18:08 | XMS_ITS | Encounter Summary ---
Author Organization [employer] Address 75 [facility] 7t [place] [address] Care Team Providers Care Boiler Shop Supervisor Name Role Phone Emily Loving MD Primary Care Provide r Reason for Visit * Reason Comments Med Refill Encounter Details Date Type Department Care Team (Late st Contact Info) Description 06/26/2023 Refill [facility] MEDICINE [address] [place], [place] [phone] Emily Loving MD 230 [place], [place] [phone] Seasonal allergies; Rhinoconjunctivitis Social History Tobacco Use Types Packs/Day Years Used Date Smoking Tobacco: Never Passive Smoke Exposure: Never Smokeless Tobacco: Never Alcohol Use Standard Drinks/Week Comments Never 0 (1 standard drink = 0.6 oz pur e alcohol) Depression Answer Date Recorded Patient Health Questionnaire-9 Score 22 04/16/2023 Patient Health Questionnaire-9 Score 22 04/16/2023 Last PHQ-9: Questionnaire Data Not on file 0 04/16/2023 Housing Stability Answer Date Recorded What is [...] Date Recorded Patient Health Questionnaire-2 Score 6 04/16/2023 Comments Unknown Sex and Gender Information Value [...] Description 05/22/2024 2:30 PM EDT Office Visit [facility] ADULT DENTAL [address] [place] [address] Paulie Harrell DMD [address] [place] [address] 08/11/2024 2:00 PM EDT Office Visit [facility] OPTOMETRY [address] [place] [address] Yovani, Constanza, OD [address] [place] [address] 09/22/2024 8:00 AM EDT Office Visit [facility] ADULT DENTAL [address] [place] [address] Mónica, Isabel [address] [place] [address] documented as of this encounter Visit Diagnoses Diagnosis Seasonal allergies Allergic rhinitis, cause unspecified Rhinoconjunctivitis documented in this encounter Additional Health Concerns Assessment Noted Time PHQ-9 Depression Total Score: 22 024 11:12 AM EST documented as of this encounter Care Teams Boiler Shop Supervisor Relationship Specialty Start Date End Date Emily Loving MD [address] [place] [address] PCP - General Family Medicine 2/26/19 Kary Torres pottery machine operator 11/15/22 documented as of this encounter
--- OUTSIDE RECORDS SUMMARY | 2024-05-11 18:08 | XMS_ITS | Encounter Summary ---
Author Organization [employer] Address [address] [place] [address] 7t [place] [address] Care Team Providers Care Personnel Specialist Name Role Phone Emily Loving MD Primary Care Provide r Reason for Visit * Reason Comments Med Refill Encounter Details Date Type Department Care Team (Late Contact Info) Description 04/12/2022 Refill [facility] MEDICINE [address] [place], [place] [phone] Omid Joseph FNP Psychosis, unspecified psychosis type [...] suspected to have Coronavirus/COVID-19? No / Unsure 04/12/2022 11:20 AM EST documented as of this encounter Plan of Treatment Upcoming Encounters Date Type Department Care Team (Late Contact Info) Description 05/22/2024 2:30 PM EDT Office Visit [facility] ADULT DENTAL 230 [place], [place] [phone] Paulie Harrell, BUCKY [address] [place], [place] [phone] 08/11/2024 2:00 PM EDT Office Visit [facility] OPTOMETRY [address] [place] [address] Constanza Pina, OD 230 [place] [address] 09/22/2024 8:00 AM EDT Office Visit [facility] ADULT DENTAL [address] [place] [address] Mónica, Isabel [address] [place] [address] documented as of this encounter Visit Diagnoses Diagnosis Psychosis, unspecified psychosis type (CMS/HCC) documented in this encounter Additional Health Concerns Assessment Noted Time PHQ-9 Depression Total Score: 10 022 1:43 PM EST documented as of this encounter Care Teams Personnel Specialist Relationship Specialty Start Date End Date Emily Loving MD [address] [place] [address] PCP - General Family Medicine 04/08/18 Kary Torres RN Care Manager 11/15/22 documented as of this encounter
--- OUTSIDE RECORDS SUMMARY | 2024-05-11 18:08 | XMS_ITS | Encounter Summary ---
Author Organization [employer] Address [address] [facility] 7t [place] [address] Care Team Providers Care Reconnaissance Man Name Role Phone Emily Loving MD Primary Care Provide r Reason for Visit * Reason Comments Med Refill Encounter Details Date Type Department Care Team (Late st Contact Info) Description 09/24/2022 Refill [facility] MEDICINE [address] [place] [address] Omid Jsoeph FNP Psychosis, unspecified psychosis type (CMS/HCC) Social [...] Description 05/22/2024 2:30 PM EDT Office Visit [facility] ADULT DENTAL [address] [place], [place] [phone] Paulie Harrell, BUCKY [address] [place] [address] 08/11/2024 2:00 PM EDT Office Visit [facility] OPTOMETRY [address] [place] [address] Constanza Pina OD [address] [place] [address] 09/22/2024 8:00 AM EDT Office Visit [facility] ADULT DENTAL [address] [place], [place] [phone] Isabel Sales [address] [place], [place] [phone] documented as of this encounter Visit Diagnoses Diagnosis Psychosis, unspecified psychosis type (CMS/HCC) documented in this encounter Additional Health Concerns Assessment Noted Time PHQ-9 Depression Total Score: 10 022 1:43 PM EST documented as of this encounter Care Teams Reconnaissance Man Relationship Specialty Start Date End Date Emily Loving MD 230 [place] [address] PCP - General Family Medicine 04/08/18 Kary Torres RN Care Manager 11/15/22 documented as of this encounter
--- OUTSIDE RECORDS SUMMARY | 2024-05-11 18:08 | XMS_ITS | Encounter Summary ---
Author Organization [employer] Address 75 [facility] 7t [place] [address] Care Team Providers Care Rock Crusher Operator Name Role Phone Emily Loving MD Primary Care Provide r Reason for Visit * Reason Comments Med Refill Encounter Details Date Type Department Care Team (Late st Contact Info) Description 10/31/[address] [facility] MEDICINE [address] [place] [address] Omid Joseph FNP Psychosis, unspecified psychosis type [...] Description 05/22/2024 2:30 PM EDT Office Visit [facility] ADULT DENTAL [address] [place], [place] [phone] Paulie Harrell, BUCKY [address] [place] [address] 08/11/2024 2:00 PM EDT Office Visit [facility] OPTOMETRY [address] [place] [address] Constanza Pina OD [address] [place] [address] 09/22/2024 8:00 AM EDT Office Visit [facility] ADULT DENTAL [address] [place], [place] [phone] Isabel Sales [address] [place], [place] [phone] documented as of this encounter Visit Diagnoses Diagnosis Psychosis, unspecified psychosis type (CMS/HCC) documented in this encounter Additional Health Concerns Assessment Noted Time PHQ-9 Depression Total Score: 10 022 1:43 PM EST documented as of this encounter Care Teams Rock Crusher Operator Relationship Specialty Start Date End Date Emily Loving MD [address] [place] [address] PCP - General Family Medicine 04/08/18 Kary Torres RN Care Manager 11/15/22 documented as of this encounter
--- OUTSIDE RECORDS SUMMARY | 2024-05-11 18:08 | XMS_ITS | Encounter Summary ---
Author Organization [employer] Address 75 [facility] 7t [place] [address] Care Team Providers Care Zipper Machine Operator Name Role Phone Emily Loving MD Primary Care Provide r Reason for Visit * Reason Onset Date Comments Med Refill 05/11/2024 Encounter Details Date Type Department Care Team ([facility] st Contact Info) Description 05/11/2024 Refill [facility] MED & PEDS [address] [place], [place] [phone] Emily Loving MD 230 [place] [address] Seasonal allergies; Fibromyalgia; Neck pain; Psychosis, unspecified psychosis type (CMS/HCC) Social History [...] encounter Miscellaneous Notes * Telephone Encounter - Yulissa Oleary RN - 05/11/2024 1:28 PM EDT [facility] reviewed, pt. Last picked up 30 day supply 03/24/24, rx due and pended * Telephone Encounter - Chela Orozco LPN - 05/11/2024 11:11 AM EDT RECEIVED REQUEST ON LORazepam (Ativan) 1 MG tablet documented in this encounter Plan of Treatment Upcoming Encounters Date Type Department Care Team (Late st Contact Info) Description 05/22/2024 2:30 PM EDT Office Visit [facility] ADULT DENTAL [address] [place], [place] [phone] Paulie Harrell, BUCKY [address] [place] [address] 08/11/2024 2:00 PM EDT Office Visit [facility] OPTOMETRY [address] [place], [place] [phone] Constanza Pina, NORRIS [address] [place] [address] 09/22/2024 8:00 AM EDT Office Visit [facility] ADULT DENTAL [address] [place] [address] Isabel Sales [address] [place] [address] documented as of this encounter Visit Diagnoses Diagnosis Seasonal allergies Allergic rhinitis, cause unspecified Fibromyalgia Unspecified myalgia and myositis Neck pain Cervicalgia Psychosis, unspecified psychosis type (CMS/HCC) documented in this encounter Additional Health Concerns Assessment Noted Time PHQ-9 Depression Total Score: 22 025 1:58 PM EST documented as of this encounter Care Teams Zipper Machine Operator Relationship Specialty Start Date End Date Emily Loving MD [address] [place] [address] PCP - General Family Medicine 04/08/18 Kary Torres RN Care Manager 11/15/22 documented as of this encounter
--- OUTSIDE RECORDS SUMMARY | 2024-05-11 18:08 | XMS_ITS | Encounter Summary ---
Author Organization [employer] Address [address] [facility] 7t [place] [address] Care Team Providers Care Quality Control Supervisor Name Role Phone Emily Loving MD Primary Care Provide r Encounter Details Date Type Department Care Team (Late st Contact Info) Description 09/17/2023 Orders Only [facility] [address] [place] [address] Provider, MD Adalberto Social History Tobacco Use Types Packs/Day Years Used Date Smoking Tobacco: Never Assessed Passive Smoke Exposure: Never Smokeless Tobacco: Never Alcohol Use Standard Drinks/Week Comments Not Asked 0 (1 standard drink = 0.6 oz pur e alcohol) Depression Answer Date Recorded Patient Health Questionnaire-9 Score 27 09/19/2023 Patient Health Questionnaire-9 Score 27 09/19/2023 Last PHQ-9: Questionnaire Data Not on file 0 09/19/2023 Housing Stability Answer Date Recorded What is [...] Date Recorded Patient Health Questionnaire-2 Score 6 09/19/2023 Comments Unknown Sex and Gender Information Value [...] Description 05/22/2024 2:30 PM EDT Office Visit [facility] ADULT DENTAL [address] [place] [address] Paulie Harrell, DMD [address] [place] [address] 08/11/2024 2:00 PM EDT Office Visit [facility] OPTOMETRY [address] [place] [address] Yovani, Constanza, OD [address] [place] [address] 09/22/2024 8:00 AM EDT Office Visit [facility] ADULT DENTAL [address] [place] [address] Mónica, Isabel [address] [place] [address] documented as of this encounter Procedures Procedure Name Priority Date/Time Associated Diagnosis Comments CBC (INCLUDES DIFFERENTIAL AND PLATELETS) W/SMEAR FOR EH Routine 09/17/2023 4:00 PM EDT TOXICOLOGY SCREEN, URINE Routine 024 8:28 AM EDT documented in this encounter Results * CBC (includes Differential and Platelets) w/Smear for Ehrlichia (09/17/2023 4:00 PM EDT) Blood us Historical Provider LAB BLOOD ORDERABLES Gaby l Result * Toxicology screen, urine (09/17/2023 8:28 AM EDT) Urine Urine specimen obtained by clean catch procedure / Unknown us Historical Provider LAB URINE ORDERABLES Gaby l Result documented in this encounter Visit Diagnoses Not on filedocumented in this encounter Additional Health Concerns Assessment Noted Time PHQ-9 Depression Total Score: 22 024 11:12 AM EST documented as of this encounter Care Teams Quality Control Supervisor Relationship Specialty Start Date End Date Emily Loving MD [address] [place] [address] PCP - General Family Medicine 04/08/18 Kary Torres senior oracle database administrator 11/15/22 documented as of this encounter
[2024-05-12 13:44] LABS: Bacterial Vaginosis PCR NEGATIVE (Negative); Candida Group PCR NOT DETECTED (Not Detect); Candida glab krusei PCR NOT DETECTED (Not Detect); Trichomonas vaginalis PCR NOT DETECTED (Not Detect)
[2024-05-12 14:34] LABS: CT PCR NOT DETECTED (Not Detect.); NG PCR NOT DETECTED (Not Detect.)
[2024-05-14 15:08] LABS: HPV Genotype 16 Negative (Negative); HPV Genotype 18 Negative (Negative); HPV High Risk Negative (Negative)
== END 2024-05-11 16:45 | disposition home or self-care (01) ==
LOC: HO.HHCLNP 16:44
PROVIDERS: Visit Provider Internal Medicine
DX: Z12.4 Encounter for screening for malignant neoplasm of cervix (principal)
CPT/HCPCS: 81515; 87491; 87591; 87626; 88175

== ENCOUNTER 2024-07-03 12:09 | Outpatient (AMB) | payer MEDICAID, SELFPAY ==
--- OUTSIDE RECORDS SUMMARY | 2024-07-03 12:11 | XMS_ITS | Clinical Summary ---
Author Organization [address] Address [address] [place] [phone] Care Team Providers Care Manager Security Name Role Phone Unavailable Primary Care Provider [...] cancer screening, Colonoscopy 09/19/2019 Diabetes screening 09/19/2019 Covid-19 vaccine series (2023-25 season) 2023 Influenza vaccine 10/12/2024 RSV Immunization (1 - 1-dose 75+ series) 2049 Meningococcal Vaccine Aged Out No maria m tess eligible based on patient's age to complete this topic Pneumococcal Vaccine (2 - 49 years) Aged Out No longer eligible based on patient's age to complete this topic
--- NOTE | 2024-07-03 12:13 | A.OFFVIS_ITS ---
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 Required: No Allergies No Known Allergies [No Known Allergies*] Allergy (Verified 07/03/24 12:15) Medication List - Last Reconciled 07/03/24 by Latonya Kincaid LPN acetaminophen 1,000 mg PO Q8H PRN cetirizine 10 mg PO DAILY PRN cyclobenzaprine 10 mg PO TID divalproex ER 500 mg PO DAILY ergocalciferol (vitamin D2) 1,250 mcg PO QWEEK famotidine 40 mg PO BEDTIME fluoxetine 10 mg PO DAILY fluticasone propionate 50 mcg/actuation 2 sprays intranasal DAILY gabapentin 600 mg PO TID gabapentin 800 mg PO TID hydroxyzine pamoate 25 mg PO Q6H PRN loperamide 2 mg PO Q8H PRN lorazepam 1 mg PO BID PRN methylcellulose (laxative) (Citrucel) 500 mg PO DAILY olanzapine 15 mg PO BEDTIME olanzapine 7.5 mg PO QAM omeprazole 40 mg PO DAILY ondansetron 4 mg PO Q8H PRN polyethylene glycol 3350 (Miralax) 238 grams PO ONCE 1 day prazosin 5 mg PO BEDTIME trazodone 150 mg PO DAILY HPI HPI Chronic midline low back pain: Details: History of Present Illness The patient is a 48-year-old female presenting with chronic musculoskeletal pain management. She has persistent shoulder pain unresponsive to previous interventions such as strengthening exercises. The pain is constant and has not improved with time. The patient reports severe heel pain, bilateral, chronic, and worsening over time without intervention from physical therapy or advanced imaging studies such as an MRI. Her back pain, reported as chronic and not radiating to her legs, has not been treated with physical therapy or received any imaging diagnostics. Additionally, she reports chronic knee pain that significantly affects her functionality, particularly with activities like climbing stairs, which is exacerbated by her known diagnosis of fibromyalgia. The pain remains despite current management using Gabapentin and Tylenol, suggesting that her pain control is insufficient. Pain Description - Onset: Chronic - Quality: Persistent, severe in heels and back, constant in shoulder - Primary location: Shoulder, heels, back, and knees - Radiation: None reported - Exacerbating factors: Activity, fibromyalgia - Relieving factors: None reported - Interferences: Inhibits daily activities like climbing stairs due to knee pain Physical Exam - Appears afebrile. - Alert and oriented. - Mood and affect appropriate. - Follows and participates in conversation appropriately. - Respiratory effort is unlabored. Results Pain Management - Affect: Pain significantly impacting daily activities causing distress. - Analgesia: Current medications include Gabapentin and Tylenol, but pain c ontrol remains inadequate. - Adverse Effects: Not explicitly reported, but patient takes Gabapentin thrice daily. - Activities of Daily Living: Difficulty with stairs due to knee pain and overall impact on functionality. - Aberrant Drug Related Behaviors: No evidence of medication misuse or early refill requests. 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 Physical Exam Vital Signs: Last Vital Signs Pulse 77 07/03/24 12:14 Resp 16 07/03/24 12:14 BP 119/58 L 07/03/24 12:14 Pulse Ox 99 07/03/24 12:14 Oxygen Delivery Method Room Air 07/03/24 12:14 BMI result Body Mass Index 26.8 Assessment & Plan Assessment & Plan (1) Degeneration, intervertebral disc, lumbar: Code(s): M51.369 - Other intervertebral disc degeneration, lumbar region without mention of lumbar back pain or lower extremity pain Category: Medical (2) Low back pain: Code(s): M54.50 - Low back pain, unspecified Category: Medical (3) Plantar fasciitis: Code(s): M72.2 - Plantar fascial fibromatosis Category: Medical (4) Left shoulder pain: Code(s): M25.512 - Pain in left shoulder Category: Medical Plan Plan - Physical therapy will be initiated for back and foot pain for two months to observe any improvement and secure insurance coverage for potential MRI if symptoms persist. - Arrange for a left glenohumeral injection with normal saline and corticosteroid under ultrasound guidance next week for the management of persistent shoulder pain. - Continue with current medications but monitor pain levels closely for response to physical therapy interventions and possible adjustments. - Engage in alternative forms of exercise, such as swimming, to alleviate fibromyalgia symptoms and improve overall physical activity. Patient was informed and verbally consented to the use of an ambient scribe for clinic note documentation during this visit. Discussion Notes I discussed with the patient the complexity of her chronic pain in relation to fibromyalgia and the importance of maintaining an active lifestyle to manage such symptoms. I explained the necessity of physical therapy in managing her back and foot pain, particularly to meet insurance requirements for advanced imaging such as MRI. I addressed the option of a left glenohumeral injection with a small amount of corticosteroid under ultrasound to mitigate her persistent shoulder pain. The potential benefits and risks, including adverse corticosteroid effects, were outlined. Additionally, I suggested exercises like swimming, which may help mitigate some of her symptoms. We agreed upon a follow- up in two months post-physical therapy via telehealth to reassess her condition and the need for further imaging or treatment interventions. I confirmed she understood all plans and instructions thoroughly and ensured all questions were answered satisfactorily. Patient Instructions - Attend physical therapy sessions for your back and foot pain regularly as scheduled. - Prepare for the left shoulder injection next week; expect a call for appointment scheduling. - Continue taking Gabapentin and Tylenol as prescribed. - Consider starting a swimming exercise regimen if possible to aid in fibromyalgia management. - Follow up via telehealth after two months of physical therapy to reassess your condition. - Monitor your symptoms, and if you experience any worsening pain or new symptoms, contact the healthcare team. Orders: Orders PT Evaluation and Treatment Today M51.369 - Other intervertebral disc degeneration, lumbar region without mention of lumbar back pain or lower extremity pain, M54.50 - Low back pain, unspecified, M72.2 - Plantar fascial fibromatosis Coding Level of Care Code Est Pt Level 4 (35423) Diagnoses Degeneration, intervertebral disc, lumbar M51.369 Low back pain M54.50 Plantar fasciitis M72.2 Left shoulder pain M25.512
[2024-07-03 12:14] VITALS: BP 119/58; PULSE 77; RESP 16; O2SAT 99; BMI 26.8
== END 2024-07-03 13:34 | disposition home or self-care (01) ==
LOC: HO.PMC 12:10
PROVIDERS: PCP Internal Medicine; Visit Provider Internal Medicine
DX: M51.369 Other intervertebral disc degeneration, lumbar region without mention of lumbar back pain or lower extremity pain (principal); M54.50 Low back pain, unspecified; M72.2 Plantar fascial fibromatosis; M25.512 Pain in left shoulder
CPT/HCPCS: 99214

== ENCOUNTER → 2024-07-03 12:09 | Outpatient (BNVA) | payer MEDICAID, SELFPAY | PROVIDERS: PCP Internal Medicine; Visit Provider Internal Medicine | DX: M51.369 Other intervertebral disc degeneration, lumbar region without mention of lumbar back pain or lower extremity pain (principal); M54.50 Low back pain, unspecified; M72.2 Plantar fascial fibromatosis; M25.512 Pain in left shoulder | CPT/HCPCS: 99212 ==

== ENCOUNTER 2024-07-22 13:43 | Outpatient (REF) | payer MEDICAID, SELFPAY | END 2024-07-22 13:44 | disposition home or self-care (01) | LOC: HO.MAMMO 13:43 | PROVIDERS: PCP Internal Medicine; Visit Provider Internal Medicine | DX: Z12.31 Encounter for screening mammogram for malignant neoplasm of breast (principal) | CPT/HCPCS: 77063; 77067 ==

== ENCOUNTER → 2024-07-22 14:00 | Outpatient (BNV) | payer MEDICAID, SELFPAY | PROVIDERS: PCP Internal Medicine; Visit Provider Internal Medicine | DX: Z12.31 Encounter for screening mammogram for malignant neoplasm of breast (principal) | CPT/HCPCS: 77063; 77067 ==